=== PATIENT | female | born 1960 | race Caucasian/White ===

== ENCOUNTER 2020-05-06 13:00 | Outpatient (REF) | payer MEDICAID, SELFPAY ==
--- NOTE | ~2020-05-06 | MR_ITS ---
EXAMINATION: MR LUMBAR SPINE WITHOUT CONTRAST CLINICAL INFORMATION: Low back and left leg pain. COMPARISON: X-ray dated 10/09/2018. TECHNIQUE: MRI of the lumbar spine was obtained using routine sequences without contrast. FINDINGS: VERTEBRAL BODIES AND PARASPINAL STRUCTURES: There is a mild leftward lumbar spinal curvature. Mixed chronic and mild edematous endplate changes are visible from the L3-S1 levels. There is [id number] disc space narrowing lateralized more so to the right side at the L3-L4 level and to the left side at the L5-S1 level as result of spondylosis in the degenerative curvature. The marrow signal is heterogeneous with regions of fatty change. No compression fractures are identified. Mild posterior subluxation evident at L3-L4 and L1-L2. Grade 1 anterolisthesis evident at the L4-L5 level without obvious L4 pars defects. The paraspinal soft tissues are unremarkable. Imaged bony pelvis appears normal. CONUS MEDULLARIS AND CAUDA EQUINA: Normal, terminating at the level of L1. No lower cord signal abnormality is seen. The cauda equina nerve roots appear normal. SPINAL LEVELS: L1-L2: Tmel-kg-[id number] loss of disc height and retrosubluxation with an anterior disc bulge. Patent foramina. No significant central canal stenosis. L2-L3: Very mild disc bulge and mild facet arthropathy without central canal stenosis or foraminal narrowing. Anterior endplate spurring. L3-L4: Moderate right lateralized disc space narrowing with endplate spurring and a right lateral disc bulge. No central canal stenosis. Mild facet arthropathy. Bulging disc and osseous spurring result in moderate right foraminal encroachment, contacting and impressing upon the exiting right L3 nerve root. Mild retrosubluxation. L4-L5: Anterolisthesis and unroofing of the disc with severe facet arthropathy and a broad-based posterior disc bulge in addition to endplate spurring which results in severe central canal stenosis and thecal sac compression. Mass effect upon the L5 nerve roots in the subarticular zones bilaterally. Additional unroofed bulging disc and osseous spurring result in [id number] foraminal encroachment and distortion of the exiting right L4 nerve root. L5-S1: Disc bulge lateralized to the left side with endplate spurring facet arthropathy resulting in severe left foraminal encroachment and compression of the exiting left L5 nerve root. Bulging disc mildly impresses upon the ventral thecal sac and left S1 nerve root without central canal stenosis. MR/MR lumbar spine wo con IMPRESSION: Leftward lumbar spinal curvature and multilevel spondylosis with subluxations as described. Moderate disc space narrowing lateralized to the right side at L3-L4 with bulging disc and osseous spurring result in moderate right foraminal encroachment and distortion of the exiting right L3 nerve root. Anterior subluxation and severe facet arthropathy with a disc bulge and osseous spurring at the L4-L5 level resulting in severe central canal stenosis. Mass effect upon both L5 nerve roots and the exiting right L4 nerve root due to severe right foraminal encroachment. Left lateralized disc bulge and endplate spurring at L5-S1 with severe left foraminal encroachment and compression of the exiting left L5 nerve root.
== END 2020-05-06 13:01 | disposition home or self-care (01) ==
LOC: HO.MRI 13:00
PROVIDERS: Visit Provider Family Medicine
DX: M54.42 Lumbago with sciatica, left side (principal)
CPT/HCPCS: 72148

== ENCOUNTER → 2021-02-08 08:59 | Outpatient (BNVA) | payer MEDICAID, SELFPAY | PROVIDERS: PCP Family Medicine; Referring Provider Family Medicine; Visit Provider Internal Medicine | DX: I25.10 Atherosclerotic heart disease of native coronary artery without angina pectoris (principal); I10 Essential (primary) hypertension; E78.5 Hyperlipidemia, unspecified; E11.8 Type 2 diabetes mellitus with unspecified complications | CPT/HCPCS: 93005; 99202; 99212 ==

== ENCOUNTER 2021-04-11 10:18 | Outpatient (REF) | payer MEDICAID, SELFPAY ==
--- NOTE | ~2021-04-11 | MM_ITS ---
EXAMINATION: MM SCREENING DIGITAL BREAST TOMOSYNTHESIS, BILATERAL CLINICAL INFORMATION: Screening. Asymptomatic. The lifetime risk of breast cancer based on the Tyrer-Cuzick Model is 6%. COMPARISON: Mammography: 03/27/2018, 02/27/2017, 11/26/2015 TECHNIQUE: Digital breast tomosynthesis is performed in both the craniocaudal and mediolateral oblique views along with computer-aided detection (CAD). Synthesized 2D images are generated from the tomosynthesis. Additional left MLO view is provided. FINDINGS: There are scattered areas of fibroglandular density (ACR BI-RADS breast composition Category b). There are no significant masses, abnormal calcifications, or other abnormalities. Breast tissue composition borders on predominantly fatty. No significant changes. MM/MM tomosynthesis screening BI IMPRESSION: No mammographic evidence of malignancy. ASSESSMENT: BI-RADS 1: Negative RECOMMENDATION: Routine annual mammography screening. This patient's information was entered into a reminder system with a target due date for their next mammogram.
== END 2021-04-11 10:19 | disposition home or self-care (01) ==
LOC: HO.MAMMO 10:18
PROVIDERS: PCP Family Medicine; Visit Provider Family Medicine
DX: Z12.31 Encounter for screening mammogram for malignant neoplasm of breast (principal)
CPT/HCPCS: 77063; 77067

== ENCOUNTER 2022-04-17 10:27 | Outpatient (REF) | payer MEDICAID, SELFPAY ==
--- NOTE | ~2022-04-17 | MM_ITS ---
EXAMINATION: MM SCREENING DIGITAL BREAST TOMOSYNTHESIS, BILATERAL CLINICAL INFORMATION: Screening. Asymptomatic. The lifetime risk of breast cancer based on the Tyrer-Cuzick Model is 6%. COMPARISON: Mammography: 04/11/2021, 03/27/2018, 02/27/2017 TECHNIQUE: Digital breast tomosynthesis is performed in both the craniocaudal and mediolateral oblique views along with computer-aided detection (CAD). Synthesized 2D images are generated from the tomosynthesis. Additional bilateral MLO views are provided. FINDINGS: There are scattered areas of fibroglandular density (ACR BI-RADS breast composition Category b). There are no significant masses, abnormal calcifications, or other abnormalities. No architectural abnormality or developing density or significant change from prior studies. Breast tissue composition borders on predominantly fatty. MM/MM tomosynthesis screening BI IMPRESSION: No mammographic evidence of malignancy. ASSESSMENT: BI-RADS 1: Negative RECOMMENDATION: Routine annual mammography screening. This patient's information was entered into a reminder system with a target due date for their next mammogram.
== END 2022-04-17 10:28 | disposition home or self-care (01) ==
LOC: HO.MAMMO 10:27
PROVIDERS: PCP Family Medicine; Visit Provider Family Medicine
DX: Z12.31 Encounter for screening mammogram for malignant neoplasm of breast (principal)
CPT/HCPCS: 77063; 77067

== ENCOUNTER → 2022-05-02 09:57 | Outpatient (REF) | payer MEDICAID, SELFPAY ==
--- NOTE | 2022-05-02 10:03 | ECG_ITS ---
Test Reason : CK QT PROLONGATION -METHADONE Blood Pressure : / mmHG Vent. 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
== END ==
LOC: HO.CARD 09:57
PROVIDERS: PCP Family Medicine; Visit Provider Family Medicine
DX: Z79.899 Other long term (current) drug therapy (principal)
CPT/HCPCS: 93005

== ENCOUNTER 2022-05-19 14:15 | Emergency (ER) | payer MEDICAID, SELFPAY ==
--- NOTE | ~2022-05-19 | XR_ITS ---
EXAMINATION: XR FEMUR, RIGHT CLINICAL INFORMATION: Fall COMPARISON: 10/11/2016 TECHNIQUE: AP and lateral views of the right femur were obtained. FINDINGS: No fracture or dislocation. No cortical disruption. Alignment maintained at the hip and knee. Mild degenerative change of the hip with subchondral sclerosis. Small marginal osteophytes of the medial and lateral compartments of the knee. No joint effusion at the knee. The soft tissues are unremarkable. XR/XR femur RT 2V IMPRESSION: No fracture or malalignment. Mild degenerative changes of the hip and knee.
--- NOTE | ~2022-05-19 | XR_ITS ---
EXAMINATION: XR SHOULDER, RIGHT CLINICAL INFORMATION: Fall with pain COMPARISON: None TECHNIQUE: Three views of the right shoulder. FINDINGS: No fracture or dislocation. The glenohumeral joint is well aligned with narrowing of the joint space. Prominent inferior osteophyte. The acromioclavicular joint is intact with mild hypertrophic degenerative change. The visualized lung is clear. The visualized ribs are intact. XR/XR shoulder RT min 2V IMPRESSION: No fracture or malalignment. Moderate degenerative changes of the right shoulder.
--- NOTE | ~2022-05-19 | XR_ITS ---
EXAMINATION: XR PELVIS CLINICAL INFORMATION: Pelvic pain status post fall. COMPARISON: Left hip radiographs dated 10/11/2016. TECHNIQUE: AP view of the pelvis. FINDINGS: Mild bilateral hip and pubic symphysis degenerative joint changes are seen. There is no acute fracture or dislocation. The bony pelvis is intact. The soft tissues are unremarkable. XR/XR pelvis 1-2V IMPRESSION: Mild bilateral hip and pubic symphysis degenerative joint changes. No acute fracture.
[2022-05-19 14:29] VITALS: BP 147/88; PULSE 73; RESP 18; TEMP 36.1; O2SAT 97; BMI 26.2
--- NOTE | 2022-05-19 14:29 | ED.FALL ---
HPI - Fall General Chief Complaint: Fall <Melisa Rayo CNP - Last Filed: 05/19/22 14:33> Stated Complaint: Fall/R leg pain <Melisa Rayo CNP - Last Filed: 05/19/22 14:33> Time Seen by Provider: 05/19/22 14:54 <Melisa Rayo CNP - Last Filed: 05/19/22 14:33> Source: patient <GILDA Helton - Last Filed: 05/19/22 19:51> Mode of arrival: ambulatory <GILDA Helton Last Filed: 05/19/22 19:51> Limitations: no limitations <GILDA Helton Last Filed: 05/19/22 19:51> History of Present Illness HPI Narrative: Patient is a 62 year old assigned female at with a history of DM, HTN, and chronic dizziness presenting to the emergency department today with right sided shoulder, leg, and hip pain. Patient states that on 05/17 she tripped and fell, landing on her right side. Patient denies hitting her head with the incident. Patient denies any loss of conciousness from the incident. Patient denies any dizziness, lightheadedness, abdominal pain, nausea, vomiting, fever, chills, blurry vision, double vision, loss of vision, chest pain, difficulty breathing, shortness of breath, back pain, night sweats, pain with urination, increased urinary frequency, increased urinary urgency, blood in her urine or stool, syncope or a near syncopal episode, bowel incontinence, bladder incontinence, bowel retention, bladder retention, or any other complaints at this time. <GILDA Helton - Last Filed: 05/19/22 19:51> MD complaint: fall <GILDA Helton Last Filed: 05/19/22 19:51> Onset (ago): day(s) (2) <GILDA Helton Last Filed: 05/19/22 19:51> Fall from: standing <GILDA Helton Last Filed: 05/19/22 19:51> Place fall occurred: home <GILDA Helton Last Filed: 05/19/22 19:51> Loss of consciousness: none <GILDA Helton Last Filed: 05/19/22 19:51> Prolonged down time: no <GILDA Helton - Last Filed: 05/19/22 19:51> Symptoms prior to fall: none <GILDA Helton - Last Filed: 05/19/22 19:51> Context: tripped/slipped <GILDA Helton - Last Filed: 05/19/22 19:51> Severity scale (1-10): 3 <GILDA Helton - Last Filed: 05/19/22 19:51> Quality: dull <GILDA Helton - Last Filed: 05/19/22 19:51> Associated symptoms (after fall): denies <GILDA Helton - Last Filed: 05/19/22 19:51> Related Data Home Medications: Home Medications Medication Instructions Recorded Confirmed albuterol sulfate 90 mcg/actuation 2 puff PO Q4H PRN 02/08/21 02/08/21 aerosol inhaler (ProAir HFA) aspirin 81 mg tablet,delayed 81 mg PO BEDTIME 02/08/21 02/08/21 release buprenorphine 8 mg-naloxone 2 mg 10 mg sublingual BID 02/08/21 02/08/21 sublingual film (Suboxone) buspirone 7.5 mg tablet 7.5 mg PO BID 02/08/21 02/08/21 fluticasone propionate 110 1 puff PO BID 02/08/21 02/08/21 mcg/actuation HFA aerosol inhaler (Flovent HFA) gabapentin 300 mg capsule 300 mg PO TID 02/08/21 02/08/21 glipizide 5 mg tablet 5 mg PO 02/08/21 02/08/21 hydrochlorothiazide 25 mg tablet 25 mg PO QAM 02/08/21 02/08/21 hydroxyzine HCl 25 mg tablet 25 mg PO Q6H PRN anxiety 02/08/21 02/08/21 lisinopril 40 mg tablet 40 mg PO BEDTIME 02/08/21 02/08/21 melatonin 5 mg tablet 5 - 10 mg PO BEDTIME PRN insomnia 02/08/21 02/08/21 multivitamin (One Daily 1 tab PO BEDTIME 02/08/21 02/08/21 Multivitamin tablet) omeprazole 20 mg capsule,delayed 20 mg PO QAM 02/08/21 02/08/21 release rosuvastatin 5 mg tablet 5 mg PO BEDTIME 02/08/21 02/08/21 zolpidem 10 mg tablet 10 mg PO BEDTIME PRN insomnia 02/08/21 02/08/21 <Melisa Rayo CNP - Last Filed: 05/19/22 14:33> Allergies/Adverse Reactions: Allergies Allergy/AdvReac Type Severity Reaction Status Date / Time aspirin Allergy Unknown Verified 04/01/18 00:00 No Known Allergies Allergy Unverified 12/04/19 15:29 <Melisa Rayo [facility] - Last Filed: 05/19/22 14:33> Review of Systems Constitutional: Constitutional: Reports no additional constitutional complaints, Denies chills, Denies fever(s) and Denies night sweats <GILDA Helton Last Filed: 05/19/22 19:51> Eyes: Eyes: Reports no additional eye complaints, Denies blurry vision, Denies change in vision, Denies diplopia, Denies eye discharge, Denies loss of vision and Denies eye pain <GILDA Helton - Last Filed: 05/19/22 19:51> ENT: Denies dizziness <GILDA Helton - Last Filed: 05/19/22 19:51> Cardiovascular: Cardiovascular: Reports no additional cardiovascular complaints, Denies chest pain, Denies lightheadedness, Denies Loss of Consciousness and Denies dyspnea <GILDA Helton Last Filed: 05/19/22 19:51> Respiratory: Respiratory: Reports no additional respiratory complaints and Denies dyspnea <GILDA Helton Last Filed: 05/19/22 19:51> Gastrointestinal: Gastrointestinal: Reports no additional gastrointestinal complaints, Denies abdominal pain, Denies melena, Denies hematochezia, Denies change in bowel habits and Denies change in stool character <GILDA Helton Last Filed: 05/19/22 19:51> Genitourinary: Genitourinary: Denies hematuria, Denies urinary frequency, Denies dysuria, Denies urinary incontinence, Denies urinary hesitancy and Denies urinary urgency <GILDA Helton Last Filed: 05/19/22 19:51> Musculoskeletal: Musculoskeletal: Reports no additional musculoskeletal complaints, Denies numbness and Denies tingling <GILDA Helton - Last Filed: 05/19/22 19:51> Comments: right shoulder pain, right hip pain, right upper leg pain <GILDA Helton - Last Filed: 05/19/22 19:51> Neurologic: Denies dizziness, Denies loss of vision, Denies numbness and Denies tingling <GILDA Helton - Last Filed: 05/19/22 19:51> Psychiatric: Psychiatric: Reports no additional psychiatric complaints <GILDA Helton - Last Filed: 05/19/22 19:51> Endocrine: Endocrine: Reports no additional endocrine complaints <GILDA Helton - Last Filed: 05/19/22 19:51> Hematologic/Lymphatic: Hematologic/Lymphatic: Reports no additional hematologic/lymphatic complaints <GILDA Helton - Last Filed: 05/19/22 19:51> Allergic/Immunologic: Allergic/Immunologic: Reports no additional allergic/immunologic complaints <GILDA Helton - Last Filed: 05/19/22 19:51> PMF Past Medical History Attestation statement: The following information was validated with the patient. <GILDA Helton - Last Filed: 05/19/22 19:51> Source: old records reviewed and nursing notes reviewed <GILDA Helton - Last Filed: 05/19/22 19:51> Medical History: Medical History Atherosclerotic cardiovascular disease Essential hypertension Other and unspecified hyperlipidemia Type 2 diabetes mellitus with unspecified complications <Melisa Rayo CNP - Last Filed: 05/19/22 14:33> Surgical History: Surgical History Hx of cardiac catheterization <Melisa Rayo CNP - Last Filed: 05/19/22 14:33> Family History Family History: Family History Father Diabetes Mother No problems noted. <Melisa Rayo CNP - Last Filed: 05/19/22 14:33> Social History Social History: Social History Patient Tobacco Use Status: Current someday Tobacco user Smoked in Last 30 Days: No Use of substances other than those prescribed or required for medical reasons: No Any prior treatment program specific to substance use: No Advance Directives: No Advance Directives Information Provided: Yes Patient : No <Melisa Rayo CNP - Last Filed: 05/19/22 14:33> Physical Exam Vital Signs: Vital Signs: Last Vital Signs Temp 98.9 F 05/19/22 16:36 Pulse 66 05/19/22 16:36 Resp 18 05/19/22 16:36 BP 133/86 05/19/22 16:36 Pulse Ox 96 05/19/22 16:36 O2 Del Method 05/19/22 16:36 BMI result Body Mass Index 26.2 <Melisa Rayo CNP - Last Filed: 05/19/22 14:33> Vital Signs: Last Vital Signs Temp 98.9 F 05/19/22 16:36 Pulse 66 05/19/22 16:36 Resp 18 05/19/22 16:36 BP 133/86 05/19/22 16:36 Pulse Ox 96 05/19/22 16:36 O2 Del Method 05/19/22 16:36 BMI result Body Mass Index 26.2 <GILDA Helton - Last Filed: 05/19/22 19:51> Const: General: cooperative, no acute distress, alert and awake <GILDA Helton - Last Filed: 05/19/22 19:51> Nutritional Appearance: well nourished <GILDA Helton - Last Filed: 05/19/22 19:51> Orientation/consciousness: patient oriented x3 <GILDA Helton - Last Filed: 05/19/22 19:51> Limitations: no limitations <GILDA Helton - Last Filed: 05/19/22 19:51> HEENT: Head: Yes normal to inspection and Yes atraumatic <GILDA Helton Last Filed: 05/19/22 19:51> Ears: hearing grossly normal bilaterally and external ears normal <GILDA Helton - Last Filed: 05/19/22 19:51> General nose exam: Normal external nose present, no nasal discharge noted and no epistaxis <Macrina Henriquezpankaj MD - Last Filed: 05/19/22 19:51> Face and sinus: Yes normal facial exam, No abrasion and No laceration <Macrina Henriquezpankaj MD - Last Filed: 05/19/22 19:51> Mouth: Normal oral and palatal mucosa present, no drooling and no muffled voice <Macrinapaulina Henriquezpankaj MD - Last Filed: 05/19/22 19:51> Eyes: General: appearance normal, both eyes and all related structures <Macrinapaulina Henriquezpankaj MD - Last Filed: 05/19/22 19:51> Periorbital: periorbital findings normal <Macrina Henriquezpankaj MD - Last Filed: 05/19/22 19:51> Eyelids: Yes eyelids normal <Macrinapaulina Henriquezpankaj MD - Last Filed: 05/19/22 19:51> Conjunctivae: conjunctivae normal <Macrinapaulina Henriquezpankaj MD - Last Filed: 05/19/22 19:51> Pupils: Equal, round and reactive pupils present <Macrina Henriquezpankaj MD - Last Filed: 05/19/22 19:51> EOM: EOMs intact bilaterally <Macrinapaulina Henriquezpankaj MD - Last Filed: 05/19/22 19:51> Neck: Neck: Yes normal visual inspection, Yes full ROM and Yes no lymphadenopathy <Macrinapaulina Henriquezpankaj MD - Last Filed: 05/19/22 19:51> Chest: Chest palpation & inspection: normal inspection of the chest <Macrina Smith MD - Last Filed: 05/19/22 19:51> Resp: Effort & Inspection: normal respiratory effort and able to speak in complete sentences <Macrina Smith MD - Last Filed: 05/19/22 19:51> Auscultation: clear to auscultation bilaterally <Macrina Sarah MD - Last Filed: 05/19/22 19:51> Cardio: Rate: regular rate <Macrina Smith MD - Last Filed: 05/19/22 19:51> Rhythm: regular rhythm <Macrina Smith MD - Last Filed: 05/19/22 19:51> GI: Inspection: Yes normal to inspection <Macrina SmithGILDA - Last Filed: 05/19/22 19:51> Palpation (GI): Soft to palpation, not firm, nontender, no guarding and not rigid <Macrina SmithGILDA - Last Filed: 05/19/22 19:51> Neuro: General: patient oriented x3 and moves all extremities <Macrina SmithGILDA - Last Filed: 05/19/22 19:51> Cranial nerves: Yes Equal, round and reactive pupils present <Macrina SmithGILDA - Last Filed: 05/19/22 19:51> Cognition (Neuro): normal cognition <Macrina Smith MD - Last Filed: 05/19/22 19:51> Motor exam (neuro): 5/5 motor strength present throughout <Macrina SmithGILDA - Last Filed: 05/19/22 19:51> Sensory Exam: Normal double simultaneous stimulation for sensation <Macrina HenriquezGILDA lira - Last Filed: 05/19/22 19:51> Coordination: [id number] test normal <Macrina Henriquezpankaj MD - Last Filed: 05/19/22 19:51> Extrem: General: Yes normal to inspection, Yes full ROM and Yes capillary refill normal <Macrina HenriquezGILDA lira - Last Filed: 05/19/22 19:51> Psych: Appearance: grossly normal <Macrina SmithGILDA - Last Filed: 05/19/22 19:51> Mental Status: mental status grossly normal <Macrina HenriquezGILDA lira - Last Filed: 05/19/22 19:51> Affect: normal affect <Macrina HenriquezGILDA lira - Last Filed: 05/19/22 19:51> Attitude: cooperative <Macrina HenriquezGILDA lira - Last Filed: 05/19/22 19:51> Thought process: Normal thought process present <Macrina GILDA Smith - Last Filed: 05/19/22 19:51> Thought content: Normal thought content present <Macrina HenriquezGILDA lira - Last Filed: 05/19/22 19:51> Insight: Good insight present (Psych) <Macrinapaulina HenriquezGILDA lira - Last Filed: 05/19/22 19:51> Course Course Course Narrative: This is an RME: Additional HPI, ROS, PE not included below will be deferred to primary provider. Patient is a 62-year-old female who presents to emergency department evaluation after a mechanical slip and fall 2 days ago. Denies any headstrike or LOC. Complaining of pain to right buttock radiating down the entire leg and pain to the right arm. Has been taking tylenol without any improvement. She is ambulatory with antalgic gait. <Melisa Rayo CNP - Last Filed: 05/19/22 14:33> Medications Administered Discontinued Medications Generic Name Dose Route Start Last Admin Trade Name Freq PRN Reason Stop Dose Admin Ketorolac Tromethamine 15 mg 05/19/22 16:35 05/19/22 16:40 Ketorolac Tromethamine 15 Mg/Ml Vial IM 05/19/22 16:36 15 mg ONCE ONE Administration <Melisa Forbesthalia Rayo CNP - Last Filed: 05/19/22 14:33> Medications Administered Discontinued Medications Generic Name Dose Route Start Last Admin Trade Name Freq PRN Reason Stop Dose Admin Ketorolac Tromethamine 15 mg 05/19/22 16:35 05/19/22 16:40 Ketorolac Tromethamine 15 Mg/Ml Vial IM 05/19/22 16:36 15 mg ONCE ONE Administration <GILDA Helton - Last Filed: 05/19/22 19:51> Medical Decision Making Medical Decision Making MDM Narrative: Patient is a 62 year old assigned female at with a history of chronic dizziness, DM, and HTN presenting to the emergency department today with right shoulder, right hip, and right upper leg pain. Patient's physical exam was unremarkable. Patient's blood work was unremarkable. Patient's pelvic, right femur, and right shoulder x-rays all showed no acute process. I explained my physical exam findings as well as all test results to the patient and the patient's daughter. I answered all questions asked by the patient and the patient's daughter. I stressed the importance of the patient taking her medication as prescribed. I stressed the importance of the patient following up with her primary care provider. I stressed the importance of the patient returning to the emergency department immediately if her symptoms were to worsen or if she were to develop any dizziness, shortness of breath, difficulty breathing, chest pain, blurry vision, loss of vision, nausea, vomiting, abdominal pain, fever, chills, back pain, or any other complaints. Patient and the patient's daughter verbalized agreement and understanding with this treatment plan and discharge. <GILDA Helton - Last Filed: 05/19/22 19:51> Differential Diagnosis Differential Diagnoses: The differential diagnosis associated with the presentation includes <GILDA Helton - Last Filed: 05/19/22 19:51> trip and fall, right hip pain, right shoulder pain, right upper leg pain <GILDA Helton - Last Filed: 05/19/22 19:51> Lab Data MDM Lab Attestation statement: I reviewed the patient's lab results. <GILDA Helton - Last Filed: 05/19/22 19:51> Result Diagrams: 05/19/22 15:40 05/19/22 15:40 <Melisa Rayo CNP - Last Filed: 05/19/22 14:33> Labs: Lab Results 05/19/22 05/19/22 05/19/22 Range/Units 15:40 15:40 15:40 WBC 9.7 (4.8-10.8) X10*3/uL RBC 4.47 (4.20-5.50) X10*6/uL Hgb 13.7 (12.0-16.0) g/dl Hct 39.5 (37.0-47.0) % MCV 88.4 (80.0-98.0) fL MCH 30.6 (27.0-33.0) pg MCHC 34.7 (31.0-35.0) g/dl RDW 13.2 (11.0-16.0) % Plt Count 189 (160-400) X10*3/uL MPV 10.8 (9.4-12.3) fL Immature Gran % (Auto) 0.2 (0.0-0.4) % Neut % (Auto) 54.7 (45-73) % Lymph % (Auto) 35.4 (20-40) % [place] % (Auto) 6.4 (2-11) % Eos % (Auto) 2.9 (0-4) % Baso % (Auto) 0.4 (0-2) % Lymph # (Auto) 3.5 (1.2-4.9) X10*3/uL [place] # (Auto) 0.6 (0.1-1.2) X10*3/uL Eos # (Auto) 0.3 (0.0-0.4) X10*3/uL Baso # (Auto) 0.0 (0.0-0.2) X10*3/uL Abs Immat Gran (auto) 0.02 (0.00-0.03) X10*3/uL Absolute Neuts (auto) 5.3 (2.0-8.3) x10*3/uL Absolute Nucleated RBC 0.000 (0.0-0.012) X10*3/uL Nucleated RBC % (auto) 0.0 (0.0-0.2) /100WBC PT 11.1 (10.0-13.1) SEC INR 1.0 (0.9-1.1) APTT 26.9 (26.0-36.4) SEC Sodium 136 (135-145) mmol/L Potassium 4.2 (3.3-5.1) mmol/L Chloride 97 (96-108) mmol/L Carbon Dioxide 31 H (22-29) mmol/L Anion Gap 12 (12-20) BUN 16 (9-16) mg/dL Creatinine 0.86 (0.5-1.4) mg/dL Estim Creat Clear Calc 60.7 Estimated GFR > 60 Random Glucose 394 H* (60-115) mg/dL Calcium 9.3 (8.4-10.2) mg/dL Total Bilirubin 0.3 (0.0-1.0) mg/dL AST 27 (5-31) U/L ALT 26 (0-31) U/L Alkaline Phosphatase 124 H (39-117) U/L Total Protein 8.0 (6.5-8.0) g/dL Albumin 3.7 (3.5-5.0) g/dL Acetaminophen < 17 (<30) mcg/mL <Melisa Rayo CNP - Last Filed: 05/19/22 14:33> Lab Results 05/19/22 05/19/22 05/19/22 Range/Units 15:40 15:40 15:40 WBC 9.7 (4.8-10.8) X10*3/uL RBC 4.47 (4.20-5.50) X10*6/uL Hgb 13.7 (12.0-16.0) g/dl Hct 39.5 (37.0-47.0) % MCV 88.4 (80.0-98.0) fL MCH 30.6 (27.0-33.0) pg MCHC 34.7 (31.0-35.0) g/dl RDW 13.2 (11.0-16.0) % Plt Count 189 (160-400) X10*3/uL MPV 10.8 (9.4-12.3) fL Immature Gran % (Auto) 0.2 (0.0-0.4) % Neut % (Auto) 54.7 (45-73) % Lymph % (Auto) 35.4 (20-40) % [place] % (Auto) 6.4 (2-11) % Eos % (Auto) 2.9 (0-4) % Baso % (Auto) 0.4 (0-2) % Lymph # (Auto) 3.5 (1.2-4.9) X10*3/uL [place] # (Auto) 0.6 (0.1-1.2) X10*3/uL Eos # (Auto) 0.3 (0.0-0.4) X10*3/uL Baso # (Auto) 0.0 (0.0-0.2) X10*3/uL Abs Immat Gran (auto) 0.02 (0.00-0.03) X10*3/uL Absolute Neuts (auto) 5.3 (2.0-8.3) x10*3/uL Absolute Nucleated RBC 0.000 (0.0-0.012) X10*3/uL Nucleated RBC % (auto) 0.0 (0.0-0.2) /100WBC PT 11.1 (10.0-13.1) SEC INR 1.0 (0.9-1.1) APTT 26.9 (26.0-36.4) SEC Sodium 136 (135-145) mmol/L Potassium 4.2 (3.3-5.1) mmol/L Chloride 97 (96-108) mmol/L Carbon Dioxide 31 H (22-29) mmol/L Anion Gap 12 (12-20) BUN 16 (9-16) mg/dL Creatinine 0.86 (0.5-1.4) mg/dL Estim Creat Clear Calc 60.7 Estimated GFR > 60 Random Glucose 394 H* (60-115) mg/dL Calcium 9.3 (8.4-10.2) mg/dL Total Bilirubin 0.3 (0.0-1.0) mg/dL AST 27 (5-31) U/L ALT 26 (0-31) U/L Alkaline Phosphatase 124 H (39-117) U/L Total Protein 8.0 (6.5-8.0) g/dL Albumin 3.7 (3.5-5.0) g/dL Acetaminophen < 17 (<30) mcg/mL <GILDA Helton - Last Filed: 05/19/22 19:51> Independent Interpretation I performed an independent interpretation of an: Plain X-Ray <GILDA Helton - Last Filed: 05/19/22 19:51> Interpretation: My interpretation is in agreement with the radiologist's impression of these imaging studies. EXAMINATION: XR PELVIS CLINICAL INFORMATION: Pelvic pain status post fall.? COMPARISON: Left hip radiographs dated 10/11/2016.? TECHNIQUE: AP view of the pelvis. FINDINGS: Mild bilateral hip and pubic symphysis degenerative joint changes are seen. There is no acute fracture or dislocation. The bony pelvis is intact. The soft tissues are unremarkable.? XR/XR pelvis 1-2V IMPRESSION: Mild bilateral hip and pubic symphysis degenerative joint changes. No acute fracture. Dictated By: Cruzito Arriola MD Signed By: Electronically signed by Cruzito Arriola MD 05/19/22 1553 EXAMINATION: XR FEMUR, RIGHT CLINICAL INFORMATION: Fall? COMPARISON: 10/11/2016? TECHNIQUE: AP and lateral views of the right femur were obtained. FINDINGS: No fracture or dislocation. No cortical disruption. Alignment maintained at the hip and knee. Mild degenerative change of the hip with subchondral sclerosis. Small marginal osteophytes of the medial and lateral compartments of the knee. No joint effusion at the knee. The soft tissues are unremarkable.? XR/XR femur RT 2V IMPRESSION: No fracture or malalignment. Mild degenerative changes of the hip and knee. Dictated By: Woody Miranda MD Signed By: Electronically signed by Woody Miranda MD 05/19/22 1627 EXAMINATION: XR SHOULDER, RIGHT CLINICAL INFORMATION: Fall with pain? COMPARISON: None? TECHNIQUE: Three views of the right shoulder. FINDINGS: No fracture or dislocation. The glenohumeral joint is well aligned with narrowing of the joint space. Prominent inferior osteophyte. The acromioclavicular joint is intact with mild hypertrophic degenerative change. The visualized lung is clear. The visualized ribs are intact.? XR/XR shoulder RT min 2V IMPRESSION: No fracture or malalignment. Moderate degenerative changes of the right shoulder. Dictated By: Woody Miranda MD Signed By: Electronically signed by Woody Miranda MD 05/19/22 1628 <GILDA Helton - Last Filed: 05/19/22 19:51> Independent Historian Clinical information obtained from an independent historian. History obtained from or confirmed by: Other (patient's daughter) <GILDA Helton - Last Filed: 05/19/22 19:51> Discharge Plan Discharge Clinical Impression: Fall <Melisa Rayo CNP - Last Filed: 05/19/22 14:33> Patient Disposition: Home, Self-Care <Melisa Rayo CNP - Last Filed: 05/19/22 14:33> Instructions: Fall Prevention (ED) <Melisa Rayo CNP - Last Filed: 05/19/22 14:33> Additional Instructions: Follow up with your primary care provider. Return to the emergency department immediately if your symptoms worsen or if you develop any dizziness, shortness of breath, difficulty breathing, chest pain, blurry vision, loss of vision, nausea, vomiting, abdominal pain, fever, chills, back pain, or any other complaints. Satnam un seguimiento con rosenberg proveedor de atenci?n primaria. Regrese al departamento de emergencias de inmediato si abhilash s?ntomas empeoran o si presenta mareos, falta de aire, dificultad para respirar, dolor de pecho, visi?n borrosa, p?rdida de la visi?n, n?useas, v?mitos, dolor abdominal, fiebre, escalofr?os, dolor de espalda o cualquier otras quejas. <Melisa Rayo CNP - Last Filed: 05/19/22 14:33> Prescriptions: No Action buprenorphine-naloxone [Suboxone] 8-2 mg film 10 mg sublingual BID albuterol sulfate [ProAir HFA] 90 mcg/actuation HFA aerosol inhaler 2 puff PO Q4H PRN hydroxyzine HCl 25 mg tablet 25 mg PO Q6H PRN (Reason: anxiety) zolpidem 10 mg tablet 10 mg PO BEDTIME PRN (Reason: insomnia) melatonin 5 mg tablet 5 - 10 mg PO BEDTIME PRN (Reason: insomnia) rosuvastatin 5 mg tablet 5 mg PO BEDTIME glipizide 5 mg tablet 5 mg PO lisinopril 40 mg tablet 40 mg PO BEDTIME hydrochlorothiazide 25 mg tablet 25 mg PO QAM omeprazole 20 mg capsule,delayed release(DR/EC) 20 mg PO QAM buspirone 7.5 mg tablet 7.5 mg PO BID gabapentin 300 mg capsule 300 mg PO TID aspirin 81 mg tablet,delayed release (DR/EC) 81 mg PO BEDTIME multivitamin [One Daily Multivitamin] Tablet 1 tab PO BEDTIME Flovent HFA 110 mcg/actuation HFA aerosol inhaler 1 puff PO BID <Melisa Rayo CNP - Last Filed: 05/19/22 14:33> Referrals: Zuleima Urbina DO [Primary Care Provider] - <Melisa Rayo CNP - Last Filed: 05/19/22 14:33> Interventions: ED Discharge Assessment Last Done: 05/19/22 16:44 <Melisa Rayo CNP - Last Filed: 05/19/22 14:33> Discharge Date/Time: 05/19/22 16:44 <Melisa Rayo CNP - Last Filed: 05/19/22 14:33> Print Language: Nepali <Melisa Rayo CNP - Last Filed: 05/19/22 14:33>
[2022-05-19 15:44] LABS: MANUAL DIFF FLAG NO
[2022-05-19 15:47] LABS: Basophils Percent Auto 0.4 % (0-2); Eosinophils Absolute Auto 0.3 X10*3/uL (0.0-0.4); Eosinophils Percent Auto 2.9 % (0-4); Hematocrit 39.5 % (37.0-47.0); Hemoglobin 13.7 g/dl (12.0-16.0); Imm Gran Abs Auto 0.02 X10*3/uL (0.00-0.03); Imm Gran Pct Auto 0.2 % (0.0-0.4); Lymphocytes Absolute Auto 3.5 X10*3/uL (1.2-4.9); Lymphocytes Percent Auto 35.4 % (20-40); Mean Corpuscular HGB Conc 34.7 g/dl (31.0-35.0); Mean Corpuscular Hemoglobin 30.6 pg (27.0-33.0); Mean Corpuscular Volume 88.4 fL (80.0-98.0); Mean Platelet Volume 10.8 fL (9.4-12.3); Monocytes Absolute Auto 0.6 X10*3/uL (0.1-1.2); Monocytes Percent Auto 6.4 % (2-11); Neutrophils Absolute Auto 5.3 x10*3/uL (2.0-8.3); Neutrophils Percent Auto 54.7 % (45-73); Platelet Count 189 X10*3/uL (160-400); Red Blood Count 4.47 X10*6/uL (4.20-5.50); Red Cell Distribution Width 13.2 % (11.0-16.0); White Blood Count 9.7 X10*3/uL (4.8-10.8)
[2022-05-19 15:58] LABS: Prothrombin Time 11.1 SEC (10.0-13.1)
[2022-05-19 16:00] LABS: Partial Thromboplastin Time 26.9 SEC (26.0-36.4)
[2022-05-19 16:07] LABS: Acetaminophen LAB < 17 mcg/mL (<30); Alanine Aminotransferase 26 U/L (0-31); Albumin Level 3.7 g/dL (3.5-5.0); Alkaline Phosphatase 124 U/L (39-117); Anion Gap 12 (12-20); Aspartate Amino Transferase 27 U/L (5-31); Bilirubin Total 0.3 mg/dL (0.0-1.0); Blood Urea Nitrogen 16 mg/dL (9-16); Calcium 9.3 mg/dL (8.4-10.2); Carbon Dioxide 31 mmol/L (22-29); Chloride 97 mmol/L (96-108); Creatinine Clr Calc Pharmacy 60.7; Estimated Glomerular Filt Rate > 60; Glucose Random 394 mg/dL (60-115); Potassium 4.2 mmol/L (3.3-5.1); Sodium 136 mmol/L (135-145)
[2022-05-19 16:36] VITALS: BP 133/86; PULSE 66; RESP 18; TEMP 37.2; O2SAT 96
[2022-05-19] MEDS: Ketorolac Tromethamine 15 MG/ML VIAL IM (16:40)
== END 2022-05-19 16:44 | disposition home or self-care (01) ==
PROVIDERS: Physician Assistant Medical; Emergency Provider Emergency Medicine Emergency Medical Services; PCP Family Medicine
DX: S89.91XA Unspecified injury of right lower leg, initial encounter (principal); S39.93XA Unspecified injury of pelvis, initial encounter; I10 Essential (primary) hypertension; R51.9 Headache, unspecified; M25.511 Pain in right shoulder; M54.2 Cervicalgia; E11.9 Type 2 diabetes mellitus without complications; W10.9XXA Fall (on) (from) unspecified stairs and steps, initial encounter; Y93.9 Activity, unspecified; Y92.9 Unspecified place or not applicable; Y99.9 Unspecified external cause status; Z79.899 Other long term (current) drug therapy
CPT/HCPCS: 36415; 72170; 73030; 73552; 80053; 80143; 85025; 85610; 85730; 96372; 99284; J1885

== ENCOUNTER 2022-11-27 09:03 | Outpatient (AMB) | payer MEDICAID, SELFPAY ==
--- NOTE | 2022-11-27 09:07 | A.OFFVIS_ITS ---
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 No recent imaging or PT. Taking Tylenol for pain without relief Allergies aspirin Allergy (Unknown, Verified 11/27/22 09:19) Unknown Medication List - Last Reconciled 11/27/22 by Lilian Heredia RN albuterol sulfate 90 mcg/actuation (ProAir HFA) 2 puffs PO Q4H PRN aspirin 81 mg PO BEDTIME buprenorphine-naloxone 8-2 mg (Suboxone) 10 mg sublingual BID buspirone 7.5 mg PO BID fluticasone propionate 110 mcg/actuation (Flovent HFA) 1 puff PO BID gabapentin 300 mg PO TID glipizide 5 mg PO hydrochlorothiazide 25 mg PO QAM hydroxyzine HCl 25 mg PO Q6H PRN lisinopril 40 mg PO BEDTIME melatonin 5 - 10 mg PO BEDTIME PRN multivitamin (One Daily Multivitamin tablet) 1 tab PO BEDTIME omeprazole 20 mg PO QAM rosuvastatin 5 mg PO BEDTIME zolpidem 10 mg PO BEDTIME PRN HPI HPI Comments History of Present Illness Details Suzanne is very pleasant Sami-speaking 62 years old female who presents in my office with complains on pain in lower back with radiation into the left lower extremity to the level of the skin the left ankle but not to the foot and not to the toes. She reports that she suffered from this pain for many years however 2 years ago the pain got significantly worse. She was sent to physical therapy without no improvement at that time. She had images of the lumbar spine which are dictated as below. She reports that her pain is more severe when she is flexing herself forward than backwards. Standing increases her pain but prolonged sitting does not increase her pain. The pain increased when she is walking as well. Laying down alleviate her pain. Movements aggravate her pain. Flexing sideways especially to the left side aggravate her pain. In terms of tissue damage she reports her pain is hot burning tingling dull tiring tight and squeezing sensation. She never had any injections for to treat her pain. She reports that she is willing to have injections. Her past medical history significant for hypertension, coronary artery disease, she has a history of coronary catheterization with unknown results. She is currently on aspirin and no other blood thinners. She reports fatigue diabetes and arthritis. She denies any significant past surgical history short of that cardiac catheterization history. Social history: Admits smoking cigarettes denies drinking alcohol, denies recreational drugs and admits caffeinated beverages. [facility] Medical History Atherosclerotic cardiovascular disease Essential hypertension Other and unspecified hyperlipidemia Type 2 diabetes mellitus with unspecified complications Surgical History Hx of cardiac catheterization Family History Father Diabetes Mother No problems noted. Social History Patient Tobacco Use Status: Current someday Tobacco user Review of Systems Const Denies chills, Denies daytime sleepiness, Denies fatigue, Denies fever(s), Denies frequent falls, Denies poor appetite, Denies snoring, Denies stops breathing during sleep, Denies weakness, Denies weight gain and Denies weight loss Eyes Denies loss of vision ENT Reports Normal hearing present, Denies dizziness and Denies hearing loss Card Denies chest pain, Denies claudication, Denies leg edema, Denies lightheadedness, Denies palpitations, Denies dyspnea, Denies dyspnea on exertion and Denies orthopnea Resp Denies cough, Denies excessive phlegm production, Denies dyspnea, Denies dyspnea on exertion, Denies snoring and Denies wheezing GI Denies abdominal pain, Denies hematochezia, Denies change in bowel habits, Denies nausea and Denies vomiting Denies urinary frequency and Denies dysuria Musc Denies arthralgias, Denies muscle weakness, Denies numbness and Denies other (frequent falls) Skin/Breast Denies nail changes and Denies rash Neuro Reports Normal hearing present, Denies Abnormal speech present, Denies dizziness, Denies frequent falls, Denies loss of vision, Denies memory loss, Denies numbness, Denies Sensory deficit (Neuro) and Denies weakness Psych Denies depression and Denies memory loss Endo Denies fatigue and Denies palpitations Deuce/Lymph Reports easy bruising Aller/Immun Denies wheezing Physical Exam Vital Signs: Last Vital Signs Pulse 71 11/27/22 09:16 BP 170/90 H 11/27/22 09:16 Pulse Ox 94 11/27/22 09:16 Oxygen Delivery Method Room Air 11/27/22 09:16 BMI result Body Mass Index 28.9 Const General: no acute distress Orientation/consciousness: patient oriented x3 Eyes General: appearance normal, both eyes and all related structures Pupils: Equal, round and reactive pupils present EOM: EOMs intact bilaterally Neck Neck: Yes full ROM Chest Chest palpation & inspection: normal inspection of the chest Resp Effort & Inspection: normal respiratory effort, able to speak in complete sentences, normal respiratory pattern, no audible wheezes and no cough Cardio Jugular venous distension: no JVD GI Inspection: Yes normal to inspection Back/Spine/Pelvis Other: Patient demonstrates normal strength of bilateral lower extremities. There is no gait changes. Loading test is positive on the left and negative on the right. Flexing forward aggravates pain more than flexing backwards. SLR is negative on the right and may be equivocal on the left. Lassegue test is negative on the right and also may be equivocal on the left, possibly positive on the left. Benedicto test is negative on the right and may be equivocal on the left, pelvis compression test and pelvic destruction tests are negative- bi laterally. Neuro General: patient oriented x3 and gait normal Cranial nerves: Yes CN's II-XII intact bilaterally, Yes Equal, round and reactive pupils present, Yes Normal hearing present and Yes Ability to bilaterally elevate shoulders present Speech: No Abnormal speech present Gait exam (Neuro): Normal gait present Motor exam (neuro): 5/5 motor strength present throughout Sensory Exam: No Sensory deficit (Neuro) Extrem General: No pedal edema Psych Speech and movement: Normal speech and movement present Affect: normal affect Attitude: cooperative Thought process: Normal thought process present Thought content: Normal thought content present Insight: Good insight present (Psych) Judgement: Good judgement present (Psych) Results Reviewed Results Reviewed: X-ray PELVIS AP view of the pelvis. FINDINGS: Mild bilateral hip and pubic symphysis degenerative joint changes are seen. There is no acute fracture or dislocation. The bony pelvis is intact. The soft tissues are unremarkable. R LUMBAR SPINE WITHOUT CONTRAST CLINICAL INFORMATION: Low back and left leg pain. COMPARISON: X-ray dated 10/09/2018. TECHNIQUE: MRI of the lumbar spine was obtained using routine sequences without contrast. FINDINGS: VERTEBRAL BODIES AND PARASPINAL STRUCTURES: There is a mild leftward lumbar spinal curvature. Mixed chronic and mild edematous endplate changes are visible from the L3-S1 levels. There is cnjm-xs-bplxcjyy disc space narrowing lateralized more so to the right side at the L3-L4 level and to the left side at the L5-S1 level as result of spondylosis in the degenerative curvature. The marrow signal is heterogeneous with regions of fatty change. No compression fractures are identified. Mild posterior subluxation evident at L3-L4 and L1-L2. Grade 1 anterolisthesis evident at the L4-L5 level without obvious L4 pars defects. The paraspinal soft tissues are unremarkable. Imaged bony pelvis appears normal. CONUS MEDULLARIS AND CAUDA EQUINA: Normal, terminating at the level of L1. No lower cord signal abnormality is seen. The cauda equina nerve roots appear normal. SPINAL LEVELS: L1-L2: Ydjh-vy-ipxjymhc loss of disc height and retrosubluxation with an anterior disc bulge. Patent foramina. No significant central canal stenosis. L2-L3: Very mild disc bulge and mild facet arthropathy without central canal stenosis or foraminal narrowing. Anterior endplate spurring. L3-L4: Moderate right lateralized disc space narrowing with endplate spurring and a right lateral disc bulge. No central canal stenosis. Mild facet arthropathy. Bulging disc and osseous spurring result in moderate right foraminal encroachment, contacting and impressing upon the exiting right L3 nerve root. Mild retrosubluxation. L4-L5: Anterolisthesis and unroofing of the disc with severe facet arthropathy and a broad-based posterior disc bulge in addition to endplate spurring which results in severe central canal stenosis and thecal sac compression. Mass effect upon the L5 nerve roots in the subarticular zones bilaterally. Additional unroofed bulging disc and osseous spurring result in qdqevizh-fa-mxhllc foraminal encroachment and distortion of the exiting right L4 nerve root. L5-S1: Disc bulge lateralized to the left side with endplate spurring facet arthropathy resulting in severe left foraminal encroachment and compression of the exiting left L5 nerve root. Bulging disc mildly impresses upon the ventral thecal sac and left S1 nerve root without central canal stenosis. IMPRESSION: Leftward lumbar spinal curvature and multilevel spondylosis with subluxations as described. Moderate disc space narrowing lateralized to the right side at L3-L4 with bulging disc and osseous spurring result in moderate right foraminal encroachment and distortion of the exiting right L3 nerve root. Anterior subluxation and severe facet arthropathy with a disc bulge and osseous spurring at the L4-L5 level resulting in severe central canal stenosis. Mass effect upon both L5 nerve roots and the exiting right L4 nerve root due to severe right foraminal encroachment. Left lateralized disc bulge and endplate spurring at L5-S1 with severe left foraminal encroachment and compression of the exiting left L5 nerve root. Assessment & Plan Assessment & Plan (1) Disc degeneration, lumbar: Code(s): M51.36 - Other intervertebral disc degeneration, lumbar region (2) Spondylosis of lumbar region without myelopathy or radiculopathy: Code(s): M47.816 - Spondylosis without myelopathy or radiculopathy, lumbar region (3) Lumbosacral radiculopathy: Code(s): M54.17 - Radiculopathy, lumbosacral region (4) Facet arthropathy, lumbar: Code(s): M47.816 - Spondylosis without myelopathy or radiculopathy, lumbar region (5) Chronic pain syndrome: Code(s): G89.4 - Chronic pain syndrome Plan The patient is suffering from disc degeneration lumbar and spondylosis of the lumbar spine as it is demonstrated on MRI. Low suspicion for left sacroiliitis, the provocation tests in to be negative. Strong suspicion for facet arthropathy. Patient is had a history of coronary artery disease however there is no history of the stent. I think we can perform diagnostic medial branch block L2-L3-L4-* on the left side to diagnose her pain and possibly open avenue for neuromodulation treatment or radiofrequency ablation. However will ask Dr. Mcnair to allow is to stop aspirin for this patient. Alternatively on the MRI left L5 exiting nerve root is compressed and could be another target of the injection for L5-S1 transforaminal epidural steroid injection on the left. That will be done only if diagnostic medial branch block will result in no improvement. I will see this patient after the procedure. Coding Level of Care Code New Pt Level 4 (43408) Diagnoses Disc degeneration, lumbar M51.36 Spondylosis of lumbar region without myelopathy or radiculopathy M47.816 Lumbosacral radiculopathy M54.17 Facet arthropathy, lumbar M47.816 Chronic pain syndrome G89.4
[2022-11-27 09:16] VITALS: BP 170/90; PULSE 71; O2SAT 94; BMI 28.9
== END 2022-11-27 10:05 | disposition home or self-care (01) ==
PROVIDERS: PCP Family Medicine; Visit Provider Anesthesiology
DX: M51.36 Other intervertebral disc degeneration, lumbar region (principal); M47.816 Spondylosis without myelopathy or radiculopathy, lumbar region; M54.17 Radiculopathy, lumbosacral region; G89.4 Chronic pain syndrome
CPT/HCPCS: 99204

== ENCOUNTER → 2022-11-27 09:03 | Outpatient (BNVA) | payer MEDICAID, SELFPAY | PROVIDERS: PCP Family Medicine; Visit Provider Anesthesiology ==

== ENCOUNTER 2022-12-12 05:57 | Outpatient (REF) | payer MEDICAID, SELFPAY | END 2022-12-12 05:58 | disposition home or self-care (01) | LOC: CF 05:57 | PROVIDERS: Visit Provider Anesthesiology | DX: Z13.89 Encounter for screening for other disorder (principal) ==

== ENCOUNTER 2023-01-09 06:05 | Outpatient (REF) | payer MEDICAID, SELFPAY ==
--- NOTE | ~2023-01-09 | FL_ITS ---
EXAMINATION: XR FLUOROSCOPY WITH IMAGES CLINICAL INFORMATION: Spondylosis without myelopathy or radiculopathy, lumbar region. Left lumbar injection. COMPARISON: None available. TECHNIQUE: Fluoroscopy Supervised By: Dr. William Ramirez. Fluoroscopy Time: 0.2 minutes. Cumulative Dose: 4.16 mGy. DAP: 0.0723 Gycm2. Images: 3. FINDINGS: Images demonstrate needle placement and contrast injection adjacent to the left lateral L3, L4 and L5 vertebrae FL/FL guidance in treatment room IMPRESSION: Fluoroscopy guidance for pain management procedure
== END 2023-01-09 06:06 | disposition home or self-care (01) ==
LOC: CF 06:05
PROVIDERS: Visit Provider Anesthesiology
DX: M47.816 Spondylosis without myelopathy or radiculopathy, lumbar region (principal); M51.36 Other intervertebral disc degeneration, lumbar region; M54.17 Radiculopathy, lumbosacral region; G89.4 Chronic pain syndrome
CPT/HCPCS: 64493; 64494; J2795

== ENCOUNTER 2023-01-09 08:01 | Outpatient (AMB) | payer MEDICAID, SELFPAY ==
[2023-01-09 08:13] VITALS: BP 128/78; PULSE 60; RESP 16; O2SAT 97; BMI 28.9
--- NOTE | 2023-01-09 08:13 | MHC.OFFVIS ---
Intake Vital Signs 01/09/23 08:13 01/09/23 09:08 Height 5 ft 2 in 5 ft 2 in Weight 158 lb 158 lb BMI 28.9 28.9 BP 128/78 114/78 Blood Pressure Location Lt brachial Lt brachial Position Sitting Sitting Respiration 16 16 Pulse 60 62 Pulse Source Pulse Oximeter Pulse Oximeter Pulse Oximetry (%) 97 96 Oxygen Delivery Method Room Air Room Air Comment Pre-Op Post-Op Intake Visit Reasons: LEFT DIAGNOSTIC L2, L3, L4 MBB Allergies aspirin Allergy (Unknown, Verified 11/27/22 09:19) Unknown [facility] Medical History Atherosclerotic cardiovascular disease Essential hypertension Other and unspecified hyperlipidemia Type 2 diabetes mellitus with unspecified complications Surgical History Hx of cardiac catheterization Family History Father Diabetes Mother No problems noted. Social History Patient Tobacco Use Status: Current someday Tobacco user Physical Exam Vital Signs: Last Vital Signs Pulse 62 01/09/23 09:08 Resp 16 01/09/23 09:08 BP 114/78 01/09/23 09:08 Pulse Ox 96 01/09/23 09:08 Oxygen Delivery Method Room Air 01/09/23 09:08 BMI result Body Mass Index 28.9 Assessment & Plan Assessment & Plan (1) Disc degeneration, lumbar: Code(s): M51.36 - Other intervertebral disc degeneration, lumbar region (2) Spondylosis of lumbar region without myelopathy or radiculopathy: Code(s): M47.816 - Spondylosis without myelopathy or radiculopathy, lumbar region Plan: Diagnostic medial branch block L3,L4 dorsal ramus L5 on the left? ? ?Informed consent was explained to the patient. All questions were explained and? answered.? The patient was taken inside the operating room where she was positioned prone on the operating table. Time-out was performed delineating correct site, side, the nature of the procedure, patient's allergy, . All operating room staff was participating in OR time-out procedure. ? ? The lower back was prepped with ChloraPrep and draped with sterile towels.? C-arm was brought over the operating field and sq picture of L3, L4-, L5 vertebra delineated on the screen.? Point of interest were delineated as confluence of superior articular process of L3, L4 and L5 vertebra on the left with corresponding transverse processes.? The projection of the point of interest to the skin were injected with the small amount of local anesthetic lidocaine 2% 1 cc.? After that 22 gauge 3.5 inch spinal needle was driven sequentially to the points of interest in tunnel vision fashion. After needles gently contacted the bone at the point of interests the needle was injected with small amount of the contrast.? The injection of the contrast did not demonstrate any intravascular or intrathecal spread of the contrast.? After that injection of the? ropivacaine 0.5%-1cc was performed at each needle location.??after that the needles were removed and Bandaids were applied. ? Upon completion of the injections? needle was? removed and sterile Band-Aids were applied.? The patient tolerated procedure very well. (3) Lumbosacral radiculopathy: Code(s): M54.17 - Radiculopathy, lumbosacral region (4) Facet arthropathy, lumbar: Code(s): M47.816 - Spondylosis without myelopathy or radiculopathy, lumbar region (5) Chronic pain syndrome: Code(s): G89.4 - Chronic pain syndrome Plan The patient is suffering from disc degeneration lumbar and spondylosis of the lumbar spine as it is demonstrated on MRI. Low suspicion for left sacroiliitis, the provocation tests in to be negative. Strong suspicion for facet arthropathy. Patient is had a history of coronary artery disease however there is no history of the stent. I think we can perform diagnostic medial branch block L2-L3-L4-* on the left side to diagnose her pain and possibly open avenue for neuromodulation treatment or radiofrequency ablation. However will ask Dr. Mcnair to allow is to stop aspirin for this patient. Alternatively on the MRI left L5 exiting nerve root is compressed and could be another target of the injection for L5-S1 transforaminal epidural steroid injection on the left. That will be done only if diagnostic medial branch block will result in no improvement. I will see this patient after the procedure. Coding Level of Care Code Procedure Only Diagnoses Disc degeneration, lumbar M51.36 Spondylosis of lumbar region without myelopathy or radiculopathy M47.816 Lumbosacral radiculopathy M54.17 Facet arthropathy, lumbar M47.816 Chronic pain syndrome G89.4
[2023-01-09 09:08] VITALS: BP 114/78; PULSE 62; RESP 16; O2SAT 96; BMI 28.9
== END 2023-01-09 09:07 | disposition home or self-care (01) ==
LOC: HO.PMCPRC 08:01
PROVIDERS: PCP Family Medicine; Visit Provider Anesthesiology
DX: M51.36 Other intervertebral disc degeneration, lumbar region (principal); M47.816 Spondylosis without myelopathy or radiculopathy, lumbar region; M54.17 Radiculopathy, lumbosacral region; G89.4 Chronic pain syndrome
CPT/HCPCS: 64493; 64494

== ENCOUNTER 2023-01-30 07:53 | Outpatient (AMB) | payer MEDICAID, SELFPAY ==
[2023-01-30 08:03] VITALS: BP 130/70; BMI 28.6
--- NOTE | 2023-01-30 08:03 | MHC.OFFVIS ---
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 The patient has a history of ascus HPV positive in 09/04, according to the record, the patient was referred for colposcopy but did not show up her appointment . Co testing done in 10/02 and 05/04 both were negative. [facility] Medical History Other and unspecified hyperlipidemia Essential hypertension Type 2 diabetes mellitus with unspecified complications Atherosclerotic cardiovascular disease Surgical History Hx of cardiac catheterization Family History Father Diabetes Mother No problems noted. Social History Patient Tobacco Use Status: Current someday Tobacco user Review of Systems Const All systems reviewed & are unremarkable except as noted in HPI and below Physical Exam Vital Signs: Last Vital Signs BP 130/70 01/30/23 08:03 BMI result Body Mass Index 28.6 General: Yes no CVA tenderness External Female Exam: normal external appearance and normal appearance of the urethra Speculum Exam - Vagina: normal appearance of the vagina, normal palpation, no lesions and no masses Speculum Exam - Cervix: normal appearance of the cervix, normal palpation, no lesions, no masses and nontender Bimanual exam- vagina & uterus: normal bimanual exam, normal palpation, uterine size normal, normal palpation, uterine shape normal, No Cervical tenderness present and non-tender Bimanual Exam- Adnexa, other: normal adnexae Back/Spine/Pelvis Back: no CVA tenderness Office Procedures Colposcopy Before the procedure was started discussed with the patient the procedure, alternatives & all the risks associated with the procedure (bleeding, infection, injury to vagina, bladder, vessels, possible need for transfusion with all its risks) then patient signed the consent Pap smear = ascus/HPV positive in 07/09, AKREN/HPV positive in 2018 with no colposcopy Speculum inserted, acetic acid used Colposcopy done Transformation zone seen, acetowhite lesions identified at 5+6+7+11+12+2 o?clock, cervical biopsies taken from 5+6+7+11+12+2 o?clock, ECC done afterwards. Vaginoscopy of the upper vagina showed no evidence of any aceto-white lesions Monsel solution used for hemostasis. The patient tolerated well . At the end the patient was instructed to call if temp>100.4, abdominal pain, n/v, bleeding; The patient was given the following instructions: nothing per vagina, no intercourse or bath tub use. All questions answered the patient verbalized understanding. Instructed the patient to make an appointment in 2 weeks for follow-up This note was generated with a voice recognition program. Some errors may have been overlooked during the review of this note. Sometimes these errors may affect the content or meaning of a given sentence. [id number] of cervix including upper vagina with biopsy and ECC Procedure code (CPT) selection complete Endometrial Biopsy Details: The patient was counseled regarding the indication and benefits of endometrial sampling to rule out endometrial pathology including not limited to endometrial hyperplasia or endometrial cancer and others; The alternatives (Either do nothing vs. hysteroscopy D&C) & the risks were discussed with the patient including but not limited: pain, uterine perforation, bleeding, infection, possible injury to bladder, bowel, ureter, possible need for blood transfusion with all its possible risks. The patient verbalized understanding all questions answered and signed consent. The patient was placed into the dorsal lithotomy position; a speculum was inserted in the vagina. Using aseptic technique for the procedure, the cervix was cleansed with Betadine. The anterior lip of the cervix was grasped with a single tooth tenaculum. The uterus was sounded to 7 cm with a 4 mm Pipelle was used. Tissues samples were obtained and placed in formalin, in a patient labeled container and sent to the pathology department. At the end of the procedure, there was minimal bleeding noted The patient tolerated the procedure well and was discharged in good condition with the following instructions: Nothing in the vagina until the bleeding stops. No sex until the bleeding stops, to call if any of the following occurs: fever (>100.4), flu-like symptoms, abdominal pain, heavy bleeding, four smelling vaginal discharge. The patient was instructed to schedule a Follow up appointment in 2 weeks to discuss pathology results of the biopsy and treatment options. This note was generated with a voice recognition program. Some errors may have been overlooked during the review of this note. Sometimes these errors may affect the content or meaning of a given sentence. [id number] Biopsy Assessment & Plan Assessment & Plan (1) ASCUS with positive high risk HPV cervical: Comment: History of KAREN/HPV positive in 2019 with no colposcopy Code(s): R87.610 - Atypical squamous cells of undetermined significance on cytologic smear of cervix (ASC-US); R87.810 - Cervical high risk human papillomavirus (HPV) DNA test positive Plan: Discussed with the patient the result of her abnormal pap in 07/09 in in 2019, its significance, risk of progression, persistence, and regression if untreated. the false positive/negative rate being a screening test, the indication for diagnostic test -colposcopy, biopsy, endocervical curettage and EMB to rule out cervical, endocervical and endometrial pathology. The patient verbalized understanding and agreed with the plan, all questions answered. Colpo/biopsy/ECC/EMB done [place] see procedure note Orders: Orders AMB Colposcopy Today R87.610 - Atypical squamous cells of undetermined significance on cytologic smear of cervix (ASC-US), R87.810 - Cervical high risk human papillomavirus (HPV) DNA test positive AMB Endometrial Biopsy Today R87.610 - Atypical squamous cells of undetermined significance on cytologic smear of cervix (ASC-US), R87.810 - Cervical high risk human papillomavirus (HPV) DNA test positive Coding Level of Care Code New Pt Level 3 (90772) Procedure Only Diagnoses ASCUS with positive high risk HPV cervical R87.610; R87.810 CPT Codes Colposcopy - CPT: 96718-Qrwflukoy of cervix including upper vagina with biopsy and ECC ([id number]) Endometrial Biopsy - CPT: 78856-Uojpkdvtmai Biopsy ([id number])
== END 2023-01-30 08:48 | disposition home or self-care (01) ==
PROVIDERS: PCP Family Medicine; Visit Provider Obstetrics & Gynecology
DX: R87.610 Atypical squamous cells of undetermined significance on cytologic smear of cervix (ASC-US) (principal); R87.810 Cervical high risk human papillomavirus (HPV) DNA test positive
CPT/HCPCS: 57454; 58110; 99203

== ENCOUNTER 2023-01-30 07:53 | Outpatient (REF) | payer MEDICAID, SELFPAY | END 2023-01-30 07:54 | disposition home or self-care (01) | LOC: HO.LNP 07:53 | PROVIDERS: PCP Family Medicine; Visit Provider Obstetrics & Gynecology | DX: R87.610 Atypical squamous cells of undetermined significance on cytologic smear of cervix (ASC-US) (principal); R87.810 Cervical high risk human papillomavirus (HPV) DNA test positive | CPT/HCPCS: 57454; 58110; 88305; 88341; 88342; 88360; 99202 ==

== ENCOUNTER 2023-02-15 11:17 | Outpatient (AMB) | payer MEDICAID, SELFPAY ==
--- NOTE | 2023-02-15 11:18 | A.OFFVIS_ITS ---
Intake Vital Signs 02/15/23 11:24 Height 5 ft 2 in Weight 156 lb 8.451 oz BMI 28.6 BP 142/80 H Intake Visit Reasons: pre op /leep Social Economist Required: Yes Social Economist Language: Collar Tacker Name: Mabel DUENAS Information Interpreted: non-clinical & clinical Sociology Research Assistant: Sociology Research Assistant Present Accompanied by: Daughter Allergies aspirin Allergy (Unknown, Verified 02/15/23 11:25) Unknown Is last menstrual period known: Yes Last menstrual period: 01/15/20 Post menopausal: No Patient : No Do you need a note to return to daycare/school/sports/work: Yes (for surgery on sunday) HPI HPI Comments History of Present Illness Details Presenting post colpo/ECC/EMB for follow-up. The patient is doing well with no complaints. The pathology showed the following: A. Endometrium, biopsy: Superficial fragment of benign endometrial and rare endocervical epithelium; no atypia identified. B. Endocervix, curettage: - High-grade squamous intraepithelial le andre (VIVIAN 3) - Background inflamed endocervical and s quamous epithelium. C. Cervix, 2 o'clock, biopsy: - Low-grade squamous intraepithelial les ion (VIVIAN 1). - No endocervical epithelium identified. D. Cervix, 5 o'clock, biopsy: - Inflamed squamous mucosa with reactive changes. - No endocervical epithelium identified. E. Cervix, 6 o'clock, biopsy: - High-grade squamous intraepithelial le andre (VIVIAN 3) - Background inflamed endocervical and s quamous epithelium. F. Cervix, 7 o'clock, biopsy: Inflamed endocervical and squamous mucosa with reactive changes. G. Cervix, 11 o'clock, biopsy: - Low-grade squamous intraepithelial les ion (VIVIAN 1). - Background inflamed endocervical mucos a with reactive changes. H. Cervix, 12 o'clock, biopsy: - Low-grade squamous intraepithelial les ion (VIVIAN 1). - No endocervical epithelium identified [facility] Medical History Other and unspecified hyperlipidemia Essential hypertension Type 2 diabetes mellitus with unspecified complications Atherosclerotic cardiovascular disease Surgical History Hx of cardiac catheterization Family History Father Diabetes Mother No problems noted. Social History Patient Tobacco Use Status: Current someday Tobacco user Female Reproductive History Menstrual Date of last menstrual period: 01/15/20 Total pregnancies: 2 Full term: 2 Review of Systems Card Reports as per HPI and Reports no additional complaints Resp Reports as per HPI and Reports no additional complaints GI Reports as per HPI and Reports no additional complaints Reports as per HPI Physical Exam Const General: cooperative, healthy appearing and comfortable Chest Chest palpation & inspection: normal inspection of the chest and normal palpation of entire chest wall Breast/axilla inspection: normal inspection of the breasts and normal inspection of the axillae Breast/axilla palpation: normal palpation of the breasts, normal palpation of the axillae and no axillary lymphadenopathy Resp Effort & Inspection: normal respiratory effort Auscultation: clear to auscultation bilaterally Percussion: percussion normal Cardio Palpation: normal PMI Rate: regular rate Rhythm: regular rhythm Heart sounds: no murmurs and no rubs Peripheral pulses: Peripheral pulses 2+ throughout GI Inspection: Yes normal to inspection Palpation (GI): Soft to palpation, nontender, no guarding, not rigid and No hepatosplenomegaly present Percussion: Yes normal to percussion Auscultation: normal bowel sounds Rectal Exam - Female: deferred Assessment & Plan Assessment & Plan (1) VIVIAN III (cervical intraepith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: Code(s): D06.9 - Carcinoma in situ of cervix, unspecified Plan: Discussed the patient the results of the colposcopy showing VIVIAN 3 with positive endocervical curettage. Recommended LEEP cone with post cone ECC. Discussed with the patient the procedure, its benefits and risks including bleeding, infection, possible need for blood transfusion with all its risk ( HIV, syphilis, Hepatitis, anaphylaxis shock, others..), injury to bladder, rectum, possible re-excision for positive margins, potential need for hysterectomy, possible future negative impact on fertility including ( cervical stenosis, incompetence , increase risk for c section 2ndary to cervical scarring and failure of dilatation), possible positive margin necessitating re-excision. Also discussed the patient options of anesthesia either paracervical block versus IV sedation/MAC, prefers to proceed with IV sedation/MAC. Since the patient has a history of diabetes , hypertension hyper lipidemia and coronary artery disease will ask the patient to call her PCP for medical clearance prior to scheduling the procedure. Instructions given the patient to call after seei ng her PCP with medical clearance in order to schedule the procedure as soon as possible. All questions answered, the patient verbalized understanding and signed the consent. Coding Level of Care Code Est Pt Level 3 (44442) Diagnoses VIVIAN III (cervical intraepith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 D06.9
[2023-02-15 11:24] VITALS: BP 142/80; BMI 28.6
== END 2023-02-15 11:51 | disposition home or self-care (01) ==
PROVIDERS: PCP Family Medicine; Visit Provider Obstetrics & Gynecology
DX: D06.9 Carcinoma in situ of cervix, unspecified (principal)
CPT/HCPCS: 99213

== ENCOUNTER → 2023-02-15 11:17 | Outpatient (BNVA) | payer MEDICAID, SELFPAY | PROVIDERS: PCP Family Medicine; Visit Provider Obstetrics & Gynecology | DX: D06.9 Carcinoma in situ of cervix, unspecified (principal) | CPT/HCPCS: 99212 ==

== ENCOUNTER 2023-02-21 10:33 | Outpatient (REF) | payer MEDICAID, SELFPAY ==
[2023-02-21 11:41] LABS: Estimated Average Glucose 237 mg/dL; Hemoglobin A1c % 9.9 % (<6.0)
[2023-02-21 12:13] LABS: Alanine Aminotransferase 21 U/L (0-31); Albumin Level 4.1 g/dL (3.5-5.0); Alkaline Phosphatase 96 U/L (39-117); Anion Gap 16 (12-20); Aspartate Amino Transferase 18 U/L (5-31); Bilirubin Total 0.5 mg/dL (0.0-1.0); Blood Urea Nitrogen 29 mg/dL (9-16); Calcium 9.9 mg/dL (8.4-10.2); Carbon Dioxide 30 mmol/L (22-29); Chloride 94 mmol/L (96-108); Estimated Glomerular Filt Rate 58; Glucose Random 295 mg/dL (60-115); Potassium 4.7 mmol/L (3.3-5.1); Sodium 135 mmol/L (135-145)
== END 2023-02-21 10:34 | disposition home or self-care (01) ==
LOC: HO.HHCL 10:33
PROVIDERS: Visit Provider Registered Nurse
DX: Z01.810 Encounter for preprocedural cardiovascular examination (principal)
CPT/HCPCS: 36415; 80053; 83036

== ENCOUNTER 2023-02-26 12:29 | Outpatient (AMB) | payer MEDICAID, SELFPAY ==
--- NOTE | 2023-02-26 12:33 | A.OFFVIS_ITS ---
Intake Vital Signs 02/26/23 12:36 Height 5 ft 2 in Weight 158 lb 11.725 oz BMI 29.0 BP 110/62 Blood Pressure Location Lt brachial Position Sitting Pulse 74 Intake Visit Reasons: cardiac clearance/ Intake Note: cardiac clearance Oracle Specialist Required: Yes Oracle Specialist Language: Diesel Truck Driver Name: [id number] Accompanied by: LITHARGE MILL OPERATOR Allergies aspirin Allergy (Unknown, Verified 02/26/23 12:37) Unknown Medication List - Last Reconciled 02/26/23 by Fritz Mcnair MD albuterol sulfate 90 mcg/actuation (ProAir HFA) 2 puffs PO Q4H PRN fluticasone propionate 110 mcg/actuation (Flovent HFA) 1 puff PO BID gabapentin 300 mg PO TID glipizide 5 mg PO hydrochlorothiazide 25 mg PO QAM hydroxyzine HCl 25 mg PO Q6H PRN lisinopril 40 mg PO BEDTIME melatonin 5 - 10 mg PO BEDTIME PRN methadone 130 mg PO DAILY multivitamin (One Daily Multivitamin tablet) 1 tab PO BEDTIME omeprazole 20 mg PO QAM rosuvastatin 5 mg PO BEDTIME zolpidem 10 mg PO BEDTIME PRN HPI HPI Comments History of Present Illness Details Suzanne is here for preoperative evaluation before gynecological procedure. She was last seen about 2 years ago. History of coronary disease. She apparently had a myocardial infarction in 1995 when she underwent cardiac catheterization. However, does not have any regular follow-up. Has many comorbidities. She states within limits of activity does not have any exertional angina or shortness of breath or any other cardiac symptoms. She is on methadone. She states last used heroin may be an year ago or so. Denies any current use of drugs. [facility] Medical History Other and unspecified hyperlipidemia Essential hypertension Type 2 diabetes mellitus with unspecified complications Atherosclerotic cardiovascular disease Surgical History Hx of cardiac catheterization Family History Father Diabetes Mother No problems noted. Social History Patient Tobacco Use Status: Current someday Tobacco user Review of Systems Const Denies weakness ENT Denies dizziness Card Denies chest pain, Denies chest pain with activity, Denies syncope, Denies rapid heart rate, Denies pedal edema, Denies edema, Denies leg edema, Denies lightheadedness, Denies dyspnea, Denies dyspnea on exertion and Denies orthopnea Resp Denies cough, Denies dyspnea and Denies dyspnea on exertion GI Denies hematochezia and Denies change in stool character Musc Denies abnormal gait, Denies muscle cramps, Denies muscle weakness, Denies numbness, Denies radiating pain into limb and Denies tingling Neuro Denies abnormal gait, Denies dizziness, Denies syncope, Denies numbness, Denies tingling and Denies weakness Physical Exam Vital Signs: Last Vital Signs Pulse 74 02/26/23 12:36 BP 110/62 02/26/23 12:36 BMI result Body Mass Index 29.0 Const General: comfortable and no acute distress Orientation/consciousness: patient oriented x3 HEENT Other: Unremarkable Head: Yes normal to inspection Neck Neck: Yes normal visual inspection Chest Chest palpation & inspection: normal inspection of the chest Resp Auscultation: clear to auscultation bilaterally Cardio Palpation: normal PMI Heart sounds: S1 normal heart sound present, S2 normal heart sound present, no gallops, no murmurs and no rubs GI Palpation (GI): Soft to palpation Back/Spine/Pelvis Other: unremarkable Skin General skin exam: no rashes or lesions noted Neuro General: patient oriented x3 Extrem General: Yes normal to inspection Psych Mental Status: mental status grossly normal Assessment & Plan Assessment & Plan (1) Atherosclerotic cardiovascular disease: Code(s): I25.10 - Atherosclerotic heart disease of [place] coronary artery without angina pectoris (2) Preoperative cardiovascular examination: Code(s): Z01.810 - Encounter for preprocedural cardiovascular examination Plan Cardiac catheterization data reviewed from 1995. Mid LAD with 50% stenosis. Diagonal with 90% stenosis. Does not appear she underwent any PCI. Last EKG available shows sinus rhythm at 63/Min; old septal infarct and nonspecific ST-T changes. There is unchanged from 10 years ago. Many comorbidities, history of substance abuse, coronary disease, needing gynecological procedure. Recommend at least getting echocardiogram to evaluate for cardiomyopathy. Otherwise, likely intermediate risk and may plan on proceeding unless any unexpected findings on the echocardiogram. Due to history of coronary disease, suggest taking long-term aspirin and we discussed this today. Orders: Orders CA echo transthoracic complete Today I25.10 - Atherosclerotic heart disease of [place] coronary artery without angina pectoris Coding Level of Care Code Est Pt Level 4 (61776) Diagnoses Atherosclerotic cardiovascular disease I25.10 Preoperative cardiovascular examination Z01.810
[2023-02-26 12:36] VITALS: BP 110/62; PULSE 74; BMI 29.0
== END 2023-02-26 12:56 | disposition home or self-care (01) ==
PROVIDERS: PCP Family Medicine; Visit Provider Internal Medicine
DX: I25.10 Atherosclerotic heart disease of native coronary artery without angina pectoris (principal); Z01.810 Encounter for preprocedural cardiovascular examination
CPT/HCPCS: 99214

== ENCOUNTER → 2023-02-26 12:29 | Outpatient (BNVA) | payer MEDICAID, SELFPAY | PROVIDERS: PCP Family Medicine; Visit Provider Internal Medicine | DX: Z01.810 Encounter for preprocedural cardiovascular examination (principal); I25.10 Atherosclerotic heart disease of native coronary artery without angina pectoris | CPT/HCPCS: 99212 ==

== ENCOUNTER → 2023-02-27 08:15 | Outpatient (REF) | payer MEDICAID, SELFPAY ==
--- NOTE | 2023-02-27 08:21 | CA_ITS ---
Transthoracic Echocardiogram Patient (Last, First, Middle): Suzanne Campbell S Gender: Female Date of : 1960 Age: 62 Procedure Date: 02/27/2023 Procedure Type: Transthoracic Echocardiogram Location: OP Height: 157.48 cm Weight: 71.67 kg BSA: 1.73 m2 Heart Rate: 68 bpm BP: 112 / 68 mmHg Head Tennis Coach: SB Referring MD: Fritz Mcnair MD Symptoms: I25.10 - Atherosclerotic heart disease of [place] coronary artery without... Study Quality: Adequate ECG Rhythm: Sinus Conclusions: - The left ventricular systolic function is hyperdynamic. The visually estimated ejection fraction is >70%. - No obvious valvular pathology seen on this study. Findings Left Ventricle Normal left ventricular cavity size. There is normal left ventricular wall thickness. The left ventricular systolic function is hyperdynamic. The visually estimated ejection fraction is >70%. There is no evidence of regional wall motion abnormalities. Diastolic function is normal for age. Right Ventricle Normal right ventricular cavity size and systolic function. Atria Both atria are normal in size. Aortic Valve There is a normal trileaflet aortic valve. There is mild calcification of the aortic valve. There is no aortic valve stenosis. There is no aortic valve regurgitation. Mitral Valve The mitral valve appears normal. There is mild mitral annular calcification. There is no mitral valve regurgitation. There is no mitral valve stenosis. Pulmonic Valve The pulmonic valve is likely normal. Tricuspid Valve Normal tricuspid valve structure. There is trace tricuspid valve regurgitation. There is no evidence of pulmonary hypertension. Great Vessels The asc aorta is normal in size. Venous The inferior vena cava is normal in size and collapses greater than 50% with inspiration. Pericardium/Pleural There is no evidence of pericardial effusion. Prior Study Comparison No significant change compared to prior study dated: 05/14/2018. Recommendations, Care & Conclusions No obvious valvular pathology seen on this study. Measurements 2D Linear Measurements IVSd: 0.64 0.6-0.9/0.6-1.0 cm LVIDd: 4.44 3.9-5.3/4.2-5.9 cm LVIDd Index: 2.57 2.4-3.2/2.2-3.1 cm/m2 LVIDs: 2.11 2.0-3.6 cm LVPWd: 0.70 0.7-1.1 cm LA Diam: 3.90 2.7-3.8/3.0-4.0 cm LAIDs Index: 2.25 1.5-2.3 cm/m2 LV Mass: 109.69 67-162/88-224 g LV Mass Index: 63.41 43-95/49-115 g/m2 LVOT Diam: 2.10 3.0+(-)1.3 cm 2D Systolic Function EF 4C: 76.80 >55% Mitral Valve MV Pk E: 0.75 MV PK A: 0.70 MV Decel Time: 259.00 E/A: 1.10 E'Lateral: 7.29 E'Medial: 5.66 E/E' Med: 13.20 E/E' Lat: 10.20 PHT: 76.00 MVA PHT: 2.89 Decel [place]: 2.87 Aortic Valve AoV Pk Kervin: 1.77 AoV Pk Grad: 13.00 SERGIO: 2.56 LVOT LVOT Pk Kervin: 1.31 LVOT Mn Kervin: 0.90 LVOT VTI: 0.29 LVOT Pk Grad: 7.00 LVOT Mn Grad: 4.00 LVOT Diam: 2.10 LVOT Area: 3.46 Diastolic Function MV Pk E: 0.75 MV Pk A: 0.70 E/A: 1.10 E'Medial: 5.66 E/E' Med: 13.20 E' Laterial: 7.29 E/E' Lat: 10.20 Right Ventricle TAPSE (mm): 24.40 TVS' Kervin: 14.80 Tricuspid Valve TR Pk Kervin: 2.58 TR Pk Grad: 27.00 RA Press: 3.00 RVSP: 30.00 Great Vessels Aorta Sinus of Valsalva: 2.70 2.0-3.5 cm Ao Asc: 3.60 2.1-3.4 cm Pulmonary Veins Pulm Vein S/D 1.20 Pulmonary Valve PV Pk Kervin: 1.19 Peak PV Grad: 6.00 Updated in Other Vendor System with Status of Final Fritz Mcnair MD electronically signed on 02/27/2023 10:40:33 AM with status of Final
== END ==
LOC: HO.CARD 08:15
PROVIDERS: PCP Family Medicine; Visit Provider Internal Medicine
DX: I25.10 Atherosclerotic heart disease of native coronary artery without angina pectoris (principal)
CPT/HCPCS: 93306

== ENCOUNTER → 2023-02-27 08:21 | Outpatient (BNV) | payer MEDICAID, SELFPAY | PROVIDERS: PCP Family Medicine; Visit Provider Internal Medicine | DX: I34.81 Nonrheumatic mitral (valve) annulus calcification (principal); I35.8 Other nonrheumatic aortic valve disorders | CPT/HCPCS: 93306 ==

== ENCOUNTER 2023-03-02 09:54 | Day surgery (SDC) | payer MEDICAID, SELFPAY ==
[2023-02-28 14:07] VITALS: BMI 28.9
--- NOTE | 2023-03-01 09:11 | HO.ANESPROP2 ---
Documented by User: Laurence Smith NP 03/01/23 09:15 HPI - Anesthesia Eval Consult details Narrative: 62yo F for LEEP,poss loop electric excision,poss loop electrical,cone and post endocervical curettage Cardiac optimized with nml ECHO results PMFSH Active Problems Active Problems: All Active Problems (Updated 02/26/23 @ 13:02 by Frtiz Mcnair MD) Preoperative cardiovascular examination (Acute) VIVIAN III (cervical intraepith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 (Acute) ASCUS with positive high risk HPV cervical (Acute) Chronic pain syndrome (Acute) Facet arthropathy, lumbar (Acute) Lumbosacral radiculopathy (Acute) Spondylosis of lumbar region without myelopathy or radiculopathy (Acute) Disc degeneration, lumbar (Acute) Atherosclerotic cardiovascular disease (Acute) Other and unspecified hyperlipidemia (Acute) Type 2 diabetes mellitus with unspecified complications (Acute) Essential hypertension (Acute) Past Medical History Medical History Other and unspecified hyperlipidemia Essential hypertension Type 2 diabetes mellitus with unspecified complications Atherosclerotic cardiovascular disease Family History Family History Father Diabetes Mother No problems noted. Surgical History Surgical History (Updated 03/02/23 @ 12:17 by Hina Vargas MD) H/O colonoscopy Hx of cardiac catheterization Social History Social History Patient Tobacco Use Status: Current everyday Tobacco user Tobacco use type: Cigarette Smoked in Last 30 Days: Yes Patient Interested in Nicotine Replacement: No Substance Use Frequency: Occasionally Are you DNR?: No Advance Directives: No Advance Directives Information Provided: Yes Nutrition Risks: No Nutritional Risk Meds Allergies Allergy/AdvReac Type Severity Reaction Status Date / Time aspirin Allergy Unknown Unknown Verified 03/02/23 11:06 Home Medications Medication Instructions Recorded Confirmed Last Taken Type albuterol sulfate 90 mcg/actuation 2 puff PO Q4H PRN 02/08/21 02/26/23 Unknown History aerosol inhaler (ProAir HFA) fluticasone propionate 110 1 puff PO BID 02/08/21 02/26/23 Unknown History mcg/actuation HFA aerosol inhaler (Flovent HFA) gabapentin 300 mg capsule 300 mg PO TID 02/08/21 02/26/23 Unknown History glipizide 5 mg tablet 5 mg PO 02/08/21 02/26/23 Unknown History hydrochlorothiazide 25 mg tablet 25 mg PO QAM 02/08/21 02/26/23 Unknown History hydroxyzine HCl 25 mg tablet 25 mg PO Q6H PRN anxiety 02/08/21 02/26/23 Unknown History lisinopril 40 mg tablet 40 mg PO BEDTIME 02/08/21 02/26/23 Unknown History melatonin 5 mg tablet 5 - 10 mg PO BEDTIME PRN insomnia 02/08/21 02/26/23 Unknown History multivitamin (One Daily 1 tab PO BEDTIME 02/08/21 02/26/23 Unknown History Multivitamin tablet) omeprazole 20 mg capsule,delayed 20 mg PO QAM 02/08/21 02/26/23 Unknown History release rosuvastatin 5 mg tablet 5 mg PO BEDTIME 02/08/21 02/26/23 Unknown History zolpidem 10 mg tablet 10 mg PO BEDTIME PRN insomnia 02/08/21 02/26/23 Unknown History methadone 40 mg soluble tablet 130 mg PO DAILY 01/30/23 02/26/23 Unknown History Exam Height,Weight and Vital Signs: Height 5 ft 2 in Weight 71.668 kg Pertinent Lab Results Pertinent Lab Results: Laboratory Tests 05/19/22 02/21/23 15:40 10:37 WBC 9.7 Hgb 13.7 Hct 39.5 Plt Count 189 Sodium 135 Potassium 4.7 Chloride 94 L Carbon Dioxide 30 H BUN 29 H Creatinine 0.97 Narrative Narrative: ECHO 02/2023 Conclusions: - The left ventricular systolic function is hyperdynamic. The visually estimated ejection fraction is >70%. - No obvious valvular pathology seen on this study. EKG 04/2022 Vent. Rate : 063 BPM Atrial Rate : 063 BPM P-R Int : 150 ms QRS Dur : 070 ms QT Int : 376 ms P-R-T Axes : 012 -06 000 degrees QTc Int : 384 ms Normal sinus rhythm Septal infarct (cited on or before 27-JUL-2003) Abnormal ECG When compared with ECG of 29-JUN-2010 06:51, Nonspecific T wave abnormality, worse in Inferior leads Nonspecific T wave abnormality now evident in Anterior leads Assessment and Plan Assessment Anesthesia Assessment: Chart Reviewed Documented by User: Hina Vargas MD 03/02/23 12:20 [facility] Active Problems Active Problems: All Active Problems (Updated 03/02/23 @ 11:19 by Hina Vargas MD) Preoperative cardiovascular examination (Acute) VIVIAN III (cervical intraepith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 (Acute) ASCUS with positive high risk HPV cervical (Acute) Chronic pain syndrome (Acute) Facet arthropathy, lumbar (Acute) Lumbosacral radiculopathy (Acute) Spondylosis of lumbar region without myelopathy or radiculopathy (Acute) Disc degeneration, lumbar (Acute) Atherosclerotic cardiovascular disease (Acute) Other and unspecified hyperlipidemia (Acute) Type 2 diabetes mellitus with unspecified complications (Acute) Essential hypertension (Acute) COPD- only using inhalers prn Past Medical History Medical History Other and unspecified hyperlipidemia Essential hypertension Type 2 diabetes mellitus with unspecified complications Atherosclerotic cardiovascular disease Family History Family History Father Diabetes Mother No problems noted. Family history of problems with anesthesia: No Surgical History Surgical History (Updated 03/02/23 @ 12:17 by Hina Vargas MD) H/O colonoscopy Hx of cardiac catheterization History of Problems with Anesthesia: No Social History Social History Patient Tobacco Use Status: Current everyday Tobacco user Tobacco use type: Cigarette Smoked in Last 30 Days: Yes Patient Interested in Nicotine Replacement: No Substance Use Frequency: Occasionally Are you DNR?: No Advance Directives: No Advance Directives Information Provided: Yes Nutrition Risks: No Nutritional Risk Meds Allergies Allergy/AdvReac Type Severity Reaction Status Date / Time aspirin Allergy Unknown Unknown Verified 03/02/23 11:06 Home Medications Medication Instructions Recorded Confirmed Last Taken Type albuterol sulfate 90 mcg/actuation 2 puff PO Q4H PRN 02/08/21 02/26/23 Unknown History aerosol inhaler (ProAir HFA) fluticasone propionate 110 1 puff PO BID 02/08/21 02/26/23 Unknown History mcg/actuation HFA aerosol inhaler (Flovent HFA) gabapentin 300 mg capsule 300 mg PO TID 02/08/21 02/26/23 Unknown History glipizide 5 mg tablet 5 mg PO 02/08/21 02/26/23 Unknown History hydrochlorothiazide 25 mg tablet 25 mg PO QAM 02/08/21 02/26/23 Unknown History hydroxyzine HCl 25 mg tablet 25 mg PO Q6H PRN anxiety 02/08/21 02/26/23 Unknown History lisinopril 40 mg tablet 40 mg PO BEDTIME 02/08/21 02/26/23 Unknown History melatonin 5 mg tablet 5 - 10 mg PO BEDTIME PRN insomnia 02/08/21 02/26/23 Unknown History multivitamin (One Daily 1 tab PO BEDTIME 02/08/21 02/26/23 Unknown History Multivitamin tablet) omeprazole 20 mg capsule,delayed 20 mg PO QAM 02/08/21 02/26/23 Unknown History release rosuvastatin 5 mg tablet 5 mg PO BEDTIME 02/08/21 02/26/23 Unknown History zolpidem 10 mg tablet 10 mg PO BEDTIME PRN insomnia 02/08/21 02/26/23 Unknown History methadone 40 mg soluble tablet 130 mg PO DAILY 01/30/23 02/26/23 Unknown History Exam Height,Weight and Vital Signs: Height 5 ft 2 in Weight 71.668 kg Vital Signs Temp Pulse Resp BP Pulse Ox O2 Del Method 03/02/23 11:16 65 18 03/02/23 10:34 97.9 F 67 18 158/96 H 96 Room Air Pertinent Lab Results Pertinent Lab Results: Laboratory Tests 05/19/22 02/21/23 15:40 10:37 WBC 9.7 Hgb 13.7 Hct 39.5 Plt Count 189 Sodium 135 Potassium 4.7 Chloride 94 L Carbon Dioxide 30 H BUN 29 H Creatinine 0.97 Lab Results 03/02/23 Range/Units 11:01 POC Glucose 221 H (60-115) mg/dL Airway Mallampati Class: III Loose/Missing/Broken Teeth: Yes (Loose tooth top front. Broken tooth top front.Some missing teeth top and bottom) Heart: RRR Lungs: CTAB s/p respiratory treatment. No wheezes Assessment and Plan Final Anesthetic Review Family History of Problems with Anesthesia: No History of Problems with Anesthesia: No NPO: Yes Assessment/Block/Sedation in SS: Assess/Block/Sedation-SS Documented by User: Valentina Sandoval MD 03/02/23 11:52 PMFSH Past Medical History Medical History Other and unspecified hyperlipidemia Essential hypertension Type 2 diabetes mellitus with unspecified complications Atherosclerotic cardiovascular disease Family History Family History Father Diabetes Mother No problems noted. Surgical History Surgical History (Updated 03/02/23 @ 12:17 by Hina Vargas MD) H/O colonoscopy Hx of cardiac catheterization Social History Social History Patient Tobacco Use Status: Current everyday Tobacco user Tobacco use type: Cigarette Smoked in Last 30 Days: Yes Patient Interested in Nicotine Replacement: No Substance Use Frequency: Occasionally Are you DNR?: No Advance Directives: No Advance Directives Information Provided: Yes Nutrition Risks: No Nutritional Risk Meds Allergies Allergy/AdvReac Type Severity Reaction Status Date / Time aspirin Allergy Unknown Unknown Verified 03/02/23 11:06 Home Medications Medication Instructions Recorded Confirmed Last Taken Type albuterol sulfate 90 mcg/actuation 2 puff PO Q4H PRN 02/08/21 02/26/23 Unknown History aerosol inhaler (ProAir HFA) fluticasone propionate 110 1 puff PO BID 02/08/21 02/26/23 Unknown History mcg/actuation HFA aerosol inhaler (Flovent HFA) gabapentin 300 mg capsule 300 mg PO TID 02/08/21 02/26/23 Unknown History glipizide 5 mg tablet 5 mg PO 02/08/21 02/26/23 Unknown History hydrochlorothiazide 25 mg tablet 25 mg PO QAM 02/08/21 02/26/23 Unknown History hydroxyzine HCl 25 mg tablet 25 mg PO Q6H PRN anxiety 02/08/21 02/26/23 Unknown History lisinopril 40 mg tablet 40 mg PO BEDTIME 02/08/21 02/26/23 Unknown History melatonin 5 mg tablet 5 - 10 mg PO BEDTIME PRN insomnia 02/08/21 02/26/23 Unknown History multivitamin (One Daily 1 tab PO BEDTIME 02/08/21 02/26/23 Unknown History Multivitamin tablet) omeprazole 20 mg capsule,delayed 20 mg PO QAM 02/08/21 02/26/23 Unknown History release rosuvastatin 5 mg tablet 5 mg PO BEDTIME 02/08/21 02/26/23 Unknown History zolpidem 10 mg tablet 10 mg PO BEDTIME PRN insomnia 02/08/21 02/26/23 Unknown History methadone 40 mg soluble tablet 130 mg PO DAILY 01/30/23 02/26/23 Unknown History Exam Airway Mallampati Class: II TM Dist: <=3cm Neck ROM: Limited Loose/Missing/Broken Teeth: Yes, Upper and Lower (very poor dentition, upper front loose tooth and multiple broken teeth. understands and accepts risk of tooth dislodgement , aspiration during LMA placement , removal or laryngoscopy or ETT placement and removal) Heart: rrr Lungs: cta Assessment and Plan Assessment Anesthesia Assessment: Anesthesia Plan Discussed Final Anesthetic Review ASA Class: III Final Preanesthetic Review: No Changes in Pt Med Stat, Meds/Allgs Chart Reviewed, Consent Obtained/Reviewed and Anes Risks/Benef Reviewed Patient Risk: Intermediate Procedure Risk: Low Anesthetic Plan Anesthetic Plan: GA Disposition: Standard PACU
[2023-03-02] VITALS (8 sets, daily range): BP systolic 113–158; BP diastolic 52–96; PULSE 65–90; RESP 18–20; TEMP 36.6–36.8; O2SAT 95–99; BMI 28.5
--- NOTE | 2023-03-02 10:16 | PC.NURSE ---
dr. moss aware that patient drank 6 oz. orange hatch 45 minutes ago. ok to proceed.
[2023-03-02] MEDS: Lactated Ringers 1,000 ML 100 ML IVCONT (10:55)
[2023-03-02 11:08] LABS: Glucose, Whole Blood 221 mg/dL (60-115)
[2023-03-02] MEDS: Albuterol Sulfate (0.083%) 2.5 MG/3 ML VIAL.NEB INHALE (11:15)
--- NOTE | 2023-03-02 11:47 | MHC.SHP ---
Pre-Procedural Eval Section A Date of Service: 03/02/23 Section B Chief Complaint: Carcinoma in situ of cervix, unspecified Allergies: Allergies Allergy/AdvReac Type Severity Reaction Status Date / Time aspirin Allergy Unknown Unknown Verified 03/02/23 11:06 Plan I have reviewed the history and physical and performed a pertinent physical examination on my patient. No changes have occurred unless specified. Time Spent With Patient Time: Total time managing care of this patient today ____ minutes.
--- NOTE | 2023-03-02 12:46 | P.OP_ITS ---
Operative Note Operative Note Date of Service: 03/02/23 Narrative: Pre op diagnosis: VIVIAN 3 with positive ECC Operation: Colposcopy, Loop electrical excision procedure cone, top hat endocervical excision, post cone ECC Postop diagnosis: the same Quantitative blood loss: 50 cc Surgeon: Bernardo Gaming MD, FACOG Basting Cleaner: None Pathology: Cervical cone, top-hat endo cervical excision, endo cervical curettage Complications: none Anesthesia: GLMA and Para cervical block Procedure: The patient was put in a dorsal lithotomy position, scrubbed and draped in the usual sterile fashion. A speculum was inserted inside the patient's vagina. The cervix is assessed using the colposcope with acetic acid , the lesions were seen, and at least 1 cm of the squamocolumnar junction was observed. 20 x 5 mm size loop was selected based upon the diameter of the lesion. Lugol solution was used to outline the lesions and area of the transformation zone order to be removed 10 cc of xylocaine with epinephrine were injected submucosally into the surface of the cervix (ectocervix) at the 3, 6, 9, and 12 o'clock positions. The electrosurgical generator is set at 40 arrington on blend 1. The loop is carefully passed simultaneously around and under the transformation zone, in order to ensure excising it making sure the lesion is at least 5 mm far from the specimen margins . The loop was allowed to glide through the cervix from one side to the other, allowing the cutting current to divide the tissue. Since ECC was positive endo cervical disease could be beyond the reach of the loop, additional tissue was excised from this area with a smaller-diameter loop , endo cervical top-hat excision was performed An endo cervical curettage is performed following completion of excision, and hemostasis is obtained with a Ball electrode or regular tip cautery. At the end, Monsel's solution was applied to the cone bed. The patient tolerated the procedure well and, all instruments were taken out of the patient vaginal cavity, and the patient was transferred to the PACU in stable condition.
--- NOTE | 2023-03-02 12:46 | PM.OP ---
Brief Operative Note Date of Service: 03/02/23 Pre-op diagnosis: VIVIAN 3 with positive ECC Post-op diagnosis: same Procedure: LEEP CONE with post CONE ECC Surgeon: Bernardo Gaming MD Anesthesia: GLMA and other (Paracervical block) Was an Counter Pocket Sewer used for this Procedure?: No Estimated blood loss (mL): 0 Pathology: other (Cervical cone, top-hat, Post cone ECC) Condition: stable Disposition: other (Home)
--- NOTE | 2023-03-02 13:20 | PM.EVENT ---
Event Note Date of Service: 03/02/23 Event Note: Patient received a call from Dr. Dunaway, anaesthesia, stating that patient coughed up purulent sputum after removing the LMA to, recommended antibiotics for possible bronchitis, Augmentin 875 mg p.o. bid for 7 days was sent to the pts pharmacy. . Instructions given to the patient to call or go to emergency room in case of persistent cough, temperature above 100.4, shortness of breath and schedule a follow-up appointment with her PCP within few days Time Spent With Patient Time: Total time managing care of this patient today ____ minutes.
== END 2023-03-02 14:30 | disposition home or self-care (01) ==
PROVIDERS: PCP Registered Nurse; Visit Provider Obstetrics & Gynecology
PROC: 0UBC7ZZ Excision of Cervix, Via Natural or Artificial Opening (ICD-10-PCS; CPT 57522; principal; 2023-03-02 12:00)
DX: D06.9 Carcinoma in situ of cervix, unspecified (principal); R09.3 Abnormal sputum; I10 Essential (primary) hypertension; I25.10 Atherosclerotic heart disease of native coronary artery without angina pectoris; E78.5 Hyperlipidemia, unspecified; E11.9 Type 2 diabetes mellitus without complications; Z79.84 Long term (current) use of oral hypoglycemic drugs; Z79.899 Other long term (current) drug therapy; Z79.51 Long term (current) use of inhaled steroids; Z88.8 Allergy status to other drugs, medicaments and biological substances; F17.210 Nicotine dependence, cigarettes, uncomplicated
CPT/HCPCS: 57461; 82947; 88305; 88307; J1885; J2405; J2704; J3010

== ENCOUNTER → 2023-03-02 09:54 | Outpatient (BNV) | payer MEDICAID, SELFPAY | PROVIDERS: PCP Registered Nurse; Visit Provider Obstetrics & Gynecology | DX: D06.9 Carcinoma in situ of cervix, unspecified (principal) | CPT/HCPCS: 57461; 99499 ==

== ENCOUNTER 2023-03-28 14:45 | Outpatient (AMB) | payer MEDICAID, SELFPAY ==
--- NOTE | 2023-03-28 15:05 | MHC.OFFVIS ---
Intake Intake Visit Reasons: post op Glost Kiln Placer: Glost Kiln Placer Present Allergies aspirin Allergy (Unknown, Verified 03/02/23 11:06) Unknown Is last menstrual period known: Yes Last menstrual period: 01/15/20 Post menopausal: No Patient : No Do you need a note to return to daycare/school/sports/work: Yes (for surgery on sunday) HPI HPI Comments History of Present Illness Details The patient is presenting for follow-up post LEEP cone. The patient has no complaints. The pathology showed the following: A. Cervix, conization: -High grade squamous intraepithelial lesion (moderate dysplasia, VIVIAN II), involving endocervical glands. -Ectocervical margin: Free of dysplasia. -Endocervical margin: Free of dysplasia, but very close. -Radial (deep) margin: Free of dysplasia. -Squamous and endocervical glandular mucosa with marked inflammation; biopsy site changes identified. B. Cervix, top hat, conization: -High grade squamous intraepithelial lesion (moderate-severe dysplasia, VIVIAN II-III), involving endocervical glands, present at one margin, the other margin is free of dysplasia. -Squamous and endocervical glandular mucosa with marked inflammation; biopsy site changes identified. C. Endocervix, curettage: Squamous and endocervical glandular epithelium; negative for dysplasia FORMERLY [facility], [facility]1983 Medical History Other and unspecified hyperlipidemia Essential hypertension Type 2 diabetes mellitus with unspecified complications Atherosclerotic cardiovascular disease Surgical History H/O colonoscopy Hx of cardiac catheterization Family History Father Diabetes Mother No problems noted. Social History Patient Tobacco Use Status: Current everyday Tobacco user Tobacco use type: Cigarette Female Reproductive History Menstrual Date of last menstrual period: 01/15/20 Total pregnancies: 2 Full term: 2 Review of Systems Card Reports as per HPI and Reports no additional complaints Resp Reports as per HPI and Reports no additional complaints GI Reports as per HPI and Reports no additional complaints Reports as per HPI Physical Exam Const General: cooperative, healthy appearing and comfortable Chest Chest palpation & inspection: normal inspection of the chest and normal palpation of entire chest wall Breast/axilla inspection: normal inspection of the breasts and normal inspection of the axillae Breast/axilla palpation: normal palpation of the breasts, normal palpation of the axillae and no axillary lymphadenopathy Resp Effort & Inspection: normal respiratory effort Auscultation: clear to auscultation bilaterally Percussion: percussion normal Cardio Palpation: normal PMI Rate: regular rate Rhythm: regular rhythm Heart sounds: no murmurs and no rubs Peripheral pulses: Peripheral pulses 2+ throughout GI Inspection: Yes normal to inspection Palpation (GI): Soft to palpation, nontender, no guarding, not rigid and No hepatosplenomegaly present Percussion: Yes normal to percussion Auscultation: normal bowel sounds Rectal Exam - Female: deferred Assessment & Plan Assessment & Plan (1) VIVIAN III (cervical intraepith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: Comment: Status post LEEP cone with positive margins Code(s): D06.9 - Carcinoma in situ of cervix, unspecified Plan: Discussed with the patient the results pathology, positive margins, the sensitivity, specificity, false-positive and false-negative rate were discussed with the patient Discussed with the patient that studies have consistently shown that patients with positive margins after an excisional procedure, compared with negative margins, are at significantly higher risk for residual or recurrent disease. Recurrence can occur years after treatment; Recommended repeat LEEP cone with post cone ECC. All the pros and cons and risks and benefits each were discussed with the patient and the patient decided to proceed with re-excision LEEP cone with post cone ECC Will proceed with LEEP cone was post cone ECC. Discussed with the patient the procedure, its benefits and risks including bleeding, infection, possible need for blood transfusion with all its risk ( HIV, syphilis, Hepatitis, anaphylaxis shock, others..), injury to bladder, rectum, possible need for hysterectomy, possible future negative impact on fertility including ( cervical stenosis, incompetence , increase risk for c section 2ndary to cervical scarring and failure of dilatation). Also discussed the patient options of anesthesia either paracervical block versus IV sedation/MAC, prefers to proceed with IV sedation/MAC. All questions answered, the patient verbalized understanding and signed the consent. Coding Level of Care Code Est Pt Level 3 (20964) Diagnoses VIVIAN III (cervical intraepith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 D06.9
== END 2023-03-28 15:37 | disposition home or self-care (01) ==
PROVIDERS: PCP Registered Nurse; Visit Provider Obstetrics & Gynecology
DX: D06.9 Carcinoma in situ of cervix, unspecified (principal)
CPT/HCPCS: 99213

== ENCOUNTER → 2023-03-28 14:45 | Outpatient (BNVA) | payer MEDICAID, SELFPAY | PROVIDERS: PCP Registered Nurse; Visit Provider Obstetrics & Gynecology | DX: D06.9 Carcinoma in situ of cervix, unspecified (principal) | CPT/HCPCS: 99212 ==

== ENCOUNTER 2023-04-12 10:22 | Outpatient (AMB) | payer MEDICAID, SELFPAY ==
--- NOTE | 2023-04-12 10:24 | MHC.OFFVIS ---
Intake Vital Signs 04/12/23 10:25 Height 5 ft 2 in Weight 162 lb 4.163 oz BMI 29.7 BP 130/70 Blood Pressure Location Lt brachial Position Sitting Pulse 69 Intake Visit Reasons: FU Intake Note: f/up pt its feeling fine Machine Applicator Cementer Required: Yes Machine Applicator Cementer Name: willem/mina Accompanied by: Employee Allergies aspirin Allergy (Unknown, Verified 03/02/23 11:06) Unknown Medication List - Last Reconciled 04/12/23 by Fritz Mcnair MD albuterol sulfate 90 mcg/actuation (ProAir HFA) 2 puffs PO Q4H PRN amoxicillin-pot clavulanate 875-125 mg 1 tab PO BID 7 days dulaglutide (Trulicity) mg subcut QWEEK fluticasone propionate 110 mcg/actuation (Flovent HFA) 1 puff PO BID gabapentin 300 mg PO TID glipizide 5 mg PO hydrochlorothiazide 25 mg PO QAM hydroxyzine HCl 25 mg PO Q6H PRN lisinopril 40 mg PO BEDTIME melatonin 5 - 10 mg PO BEDTIME PRN methadone 130 mg PO DAILY multivitamin (One Daily Multivitamin tablet) 1 tab PO BEDTIME omeprazole 20 mg PO QAM rosuvastatin 5 mg PO BEDTIME zolpidem 10 mg PO BEDTIME PRN HPI HPI Comments History of Present Illness Details Suzanne returns for follow-up. Recently seen in consultation regarding gynecologic procedure. She states that that has been done without any issues. Otherwise, generally gets seen intermittently. History of coronary disease. Myocardial infarction 1990s when she underwent cardiac catheterization but does not have any regular cardiology followups. Many comorbidities. Last time, she stated that she had no symptoms. However, today she states she does get occasional chest pains and when she takes nitro she feels better. Hence this could all be angina. History of substance abuse but nothing recently according to her. [facility] Medical History Other and unspecified hyperlipidemia Essential hypertension Type 2 diabetes mellitus with unspecified complications Atherosclerotic cardiovascular disease Surgical History H/O colonoscopy Hx of cardiac catheterization Family History Father Diabetes Mother No problems noted. Social History Patient Tobacco Use Status: Current everyday Tobacco user Tobacco use type: Cigarette Review of Systems Const Reports chills, Reports fatigue, Reports fever(s), Reports frequent falls, Reports weakness, Reports weight gain and Reports weight loss ENT Reports dizziness Card Reports chest pain, Reports leg edema, Reports lightheadedness, Reports palpitations, Reports dyspnea and Reports dyspnea on exertion Resp Reports cough, Reports dyspnea and Reports dyspnea on exertion GI Reports hematochezia Musc Reports abnormal gait, Reports muscle weakness, Reports numbness, Reports radiating pain into limb and Reports tingling Neuro Reports abnormal gait, Reports dizziness, Reports frequent falls, Reports numbness, Reports tingling and Reports weakness Endo Reports fatigue and Reports palpitations Physical Exam Vital Signs: Last Vital Signs Pulse 69 04/12/23 10:25 BP 130/70 04/12/23 10:25 BMI result Body Mass Index 29.7 Const General: comfortable and no acute distress Orientation/consciousness: patient oriented x3 HEENT Other: Unremarkable Head: Yes normal to inspection Neck Neck: Yes normal visual inspection Chest Chest palpation & inspection: normal inspection of the chest Resp Auscultation: clear to auscultation bilaterally Cardio Palpation: normal PMI Heart sounds: S1 normal heart sound present, S2 normal heart sound present, no gallops, no murmurs and no rubs GI Palpation (GI): Soft to palpation Back/Spine/Pelvis Other: unremarkable Skin General skin exam: no rashes or lesions noted Neuro General: patient oriented x3 Extrem General: Yes normal to inspection Psych Mental Status: mental status grossly normal Office Procedures EKG Details: EKG with sinus rhythm at 70/Min; cannot exclude old septal infarct; no significant ST-T changes and otherwise unremarkable. No significant change compared to previous EKGs. 22790-[id number], Complete Assessment & Plan Assessment & Plan (1) Atherosclerotic cardiovascular disease: Code(s): I25.10 - Atherosclerotic heart disease of [place] coronary artery without angina pectoris Plan Cardiac catheterization data reviewed from 1995. Mid LAD with 50% stenosis. Diagonal with 90% stenosis. Does not appear she underwent any PCI. Recent echocardiogram with hyperdynamic LVEF; wall motion abnormalities and otherwise unremarkable. Overall, many comorbidities, probable stable angina. We can get a pharmacological stress perfusion imaging study to assess further. Highly unlikely to exercise adequately on the treadmill. Discussed with patient using lofter. Orders: Orders CA lexiscan stress w tevin Today I20.9 - Angina pectoris, unspecified NM cardiolite stress test Today R07.2 - Precordial pain Medications: New nitroglycerin do not exceed 3 doses per episode 0.4 mg sublingual Q5M PRN 30 tabs 5RF chest pain R07.2 - Precordial pain Coding Level of Care Code Est Pt Level 3 (48708) Diagnoses Atherosclerotic cardiovascular disease I25.10 CPT Codes EKG - CPT: 55980-[id number], Complete ([id number])
[2023-04-12 10:25] VITALS: BP 130/70; PULSE 69; BMI 29.7
== END 2023-04-12 10:51 | disposition home or self-care (01) ==
PROVIDERS: PCP Family Medicine; Visit Provider Internal Medicine
DX: I25.10 Atherosclerotic heart disease of native coronary artery without angina pectoris (principal)
CPT/HCPCS: 93010; 99213

== ENCOUNTER → 2023-04-12 10:22 | Outpatient (BNVA) | payer MEDICAID, SELFPAY | PROVIDERS: PCP Family Medicine; Visit Provider Internal Medicine | DX: I25.10 Atherosclerotic heart disease of native coronary artery without angina pectoris (principal) | CPT/HCPCS: 93005; 99212 ==

== ENCOUNTER 2023-04-27 08:58 | Day surgery (SDC) | payer MEDICAID, SELFPAY ==
[2023-04-24 15:17] VITALS: BMI 35.5
--- NOTE | 2023-04-26 09:01 | HO.ANESPROP2 ---
Documented by User: Laurence Smith NP 04/26/23 09:05 HPI - Anesthesia Eval Consult details Narrative: 63yo F for Re-Excision loop electric excision procedure,cone,post cone endocervical curettage s/p same 02/2023 with GA-LMA 4 (anesthesia record notes large glob of yellow mucous coughed up by patient after pulling LMA and rec'd abx course to surgeon. No respiratory issues post-op.) Cardiac optimized with nml ECHO results prior to initial procedure Methadone daily Anesthesia Pre-Procedure Meds Is the patient on any of the following meds?: Dulaglutide (Trulicity) [facility] Active Problems Active Problems: All Active Problems (Updated 04/24/23 @ 15:08 by Michell Landis RN) Preoperative cardiovascular examination (Acute) VIVIAN III (cervical intraepith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 (Acute) ASCUS with positive high risk HPV cervical (Acute) Chronic pain syndrome (Acute) Facet arthropathy, lumbar (Acute) Lumbosacral radiculopathy (Acute) Spondylosis of lumbar region without myelopathy or radiculopathy (Acute) Disc degeneration, lumbar (Acute) Atherosclerotic cardiovascular disease (Acute) Other and unspecified hyperlipidemia (Acute) Type 2 diabetes mellitus with unspecified complications (Acute) Essential hypertension (Acute) Past Medical History Medical History (Updated 04/27/23 @ 09:39 by Brinda Donnelly RN) Asthma Elevated cholesterol GERD (gastroesophageal reflux disease) Substance abuse CAD (coronary artery disease) Myocardial infarction Other and unspecified hyperlipidemia Essential hypertension Type 2 diabetes mellitus with unspecified complications Atherosclerotic cardiovascular disease Family History Family History Father Diabetes Mother No problems noted. Family history of problems with anesthesia: No Surgical History Surgical History History of loop electrical excision procedure (LEEP) H/O colonoscopy Hx of cardiac catheterization History of Problems with Anesthesia: No Social History Social History Patient Tobacco Use Status: Current someday Tobacco user Tobacco use type: Cigarette Substance Use Type Other:: none for > 1yr Are you DNR?: No Advance Directives: No Advance Directives Information Provided: Yes Meds Allergies Allergy/AdvReac Type Severity Reaction Status Date / Time aspirin Allergy Unknown Unknown Verified 04/27/23 10:04 Home Medications Medication Instructions Recorded Confirmed Last Taken Type albuterol sulfate 90 mcg/actuation 2 puff PO Q4H PRN Shortness Of 02/08/21 04/27/23 Unknown History aerosol inhaler (ProAir HFA) Breath fluticasone propionate 110 1 puff PO BID 02/08/21 04/27/23 Unknown History mcg/actuation HFA aerosol inhaler (Flovent HFA) gabapentin 300 mg capsule 300 mg PO TID 02/08/21 04/27/23 Unknown History glipizide 5 mg tablet 5 mg PO BID 02/08/21 04/27/23 Unknown History hydrochlorothiazide 25 mg tablet 25 mg PO QAM 02/08/21 04/27/23 Unknown History hydroxyzine HCl 25 mg tablet 25 mg PO Q6H PRN anxiety 02/08/21 04/27/23 Unknown History lisinopril 40 mg tablet 40 mg PO BEDTIME 02/08/21 04/27/23 Unknown History melatonin 5 mg tablet 5 - 10 mg PO BEDTIME PRN insomnia 02/08/21 04/27/23 Unknown History multivitamin (One Daily 1 tab PO BEDTIME 02/08/21 04/27/23 Unknown History Multivitamin tablet) omeprazole 20 mg capsule,delayed 20 mg PO QAM 02/08/21 04/27/23 Unknown History release rosuvastatin 5 mg tablet 5 mg PO BEDTIME 02/08/21 04/27/23 Unknown History zolpidem 10 mg tablet 10 mg PO BEDTIME PRN insomnia 02/08/21 04/27/23 Unknown History methadone 40 mg soluble tablet 130 mg PO DAILY 01/30/23 04/27/23 04/27/23 09:30 History dulaglutide 0.75 mg/0.5 mL 0.75 mg subcut QWEEK 04/12/23 04/27/23 Unknown History subcutaneous pen injector (Trulicity) insulin glargine 100 unit/mL (3 15 unit subcut DAILY 04/27/23 04/27/23 Unknown History mL) subcutaneous pen (Lantus Solostar U-100 Insulin) Exam Height,Weight and Vital Signs: Height 5 ft 6 in Weight 99.79 kg Pertinent Lab Results Pertinent Lab Results: Laboratory Tests 05/19/22 02/21/23 15:40 10:37 WBC 9.7 Hgb 13.7 Hct 39.5 Plt Count 189 Sodium 135 Potassium 4.7 Chloride 94 L Carbon Dioxide 30 H BUN 29 H Creatinine 0.97 Narrative Narrative: ECHO 02/2023 Conclusions: - The left ventricular systolic function is hyperdynamic. The visually estimated ejection fraction is >70%. - No obvious valvular pathology seen on this study. EKG 04/2022 Vent. Rate : 063 BPM Atrial Rate : 063 BPM P-R Int : 150 ms QRS Dur : 070 ms QT Int : 376 ms P-R-T Axes : 012 -06 000 degrees QTc Int : 384 ms Normal sinus rhythm Septal infarct (cited on or before 27-JUL-2003) Abnormal ECG When compared with ECG of 29-JUN-2010 06:51, Nonspecific T wave abnormality, worse in Inferior leads Nonspecific T wave abnormality now evident in Anterior leads Airway Neck ROM: Limited Loose/Missing/Broken Teeth: Yes (Loose tooth top front. Broken tooth top front.Some missing teeth top and bottom), Upper and Lower (very poor dentition, upper front loose tooth and multiple broken teeth. understands and accepts risk of tooth dislodgement , aspiration during LMA placement , removal or laryngoscopy or ETT placement and removal) Assessment and Plan Assessment Anesthesia Assessment: Chart Reviewed Final Anesthetic Review Family History of Problems with Anesthesia: No History of Problems with Anesthesia: No Documented by User: Mykel Montes MD 04/27/23 11:29 HPI - Anesthesia Eval Anesthesia Pre-Procedure Meds If Yes to any meds - educate patient: Pt education - increased risk of aspiration PMFSH Past Medical History Medical History (Updated 04/27/23 @ 09:39 by Brinda Donnelly RN) Asthma Elevated cholesterol GERD (gastroesophageal reflux disease) Substance abuse CAD (coronary artery disease) Myocardial infarction Other and unspecified hyperlipidemia Essential hypertension Type 2 diabetes mellitus with unspecified complications Atherosclerotic cardiovascular disease Family History Family History Father Diabetes Mother No problems noted. Surgical History Surgical History History of loop electrical excision procedure (LEEP) H/O colonoscopy Hx of cardiac catheterization Social History Social History Patient Tobacco Use Status: Current someday Tobacco user Tobacco use type: Cigarette Substance Use Type Other:: none for > 1yr Are you DNR?: No Advance Directives: No Advance Directives Information Provided: Yes Meds Allergies Allergy/AdvReac Type Severity Reaction Status Date / Time aspirin Allergy Unknown Unknown Verified 04/27/23 10:04 Home Medications Medication Instructions Recorded Confirmed Last Taken Type albuterol sulfate 90 mcg/actuation 2 puff PO Q4H PRN Shortness Of 02/08/21 04/27/23 Unknown History aerosol inhaler (ProAir HFA) Breath fluticasone propionate 110 1 puff PO BID 02/08/21 04/27/23 Unknown History mcg/actuation HFA aerosol inhaler (Flovent HFA) gabapentin 300 mg capsule 300 mg PO TID 02/08/21 04/27/23 Unknown History glipizide 5 mg tablet 5 mg PO BID 02/08/21 04/27/23 Unknown History hydrochlorothiazide 25 mg tablet 25 mg PO QAM 02/08/21 04/27/23 Unknown History hydroxyzine HCl 25 mg tablet 25 mg PO Q6H PRN anxiety 02/08/21 04/27/23 Unknown History lisinopril 40 mg tablet 40 mg PO BEDTIME 02/08/21 04/27/23 Unknown History melatonin 5 mg tablet 5 - 10 mg PO BEDTIME PRN insomnia 02/08/21 04/27/23 Unknown History multivitamin (One Daily 1 tab PO BEDTIME 02/08/21 04/27/23 Unknown History Multivitamin tablet) omeprazole 20 mg capsule,delayed 20 mg PO QAM 02/08/21 04/27/23 Unknown History release rosuvastatin 5 mg tablet 5 mg PO BEDTIME 02/08/21 04/27/23 Unknown History zolpidem 10 mg tablet 10 mg PO BEDTIME PRN insomnia 02/08/21 04/27/23 Unknown History methadone 40 mg soluble tablet 130 mg PO DAILY 01/30/23 04/27/23 04/27/23 09:30 History dulaglutide 0.75 mg/0.5 mL 0.75 mg subcut QWEEK 04/12/23 04/27/23 Unknown History subcutaneous pen injector (Trulicity) insulin glargine 100 unit/mL (3 15 unit subcut DAILY 04/27/23 04/27/23 Unknown History mL) subcutaneous pen (Lantus Solostar U-100 Insulin) Exam Airway Mallampati Class: II TM Dist: <=3cm Heart: ok. CAD. see above Lungs: ok Assessment and Plan Assessment Anesthesia Assessment: Anesthesia Plan Discussed Final Anesthetic Review NPO: Yes ASA Class: III Final Preanesthetic Review: No Changes in Pt Med Stat, Meds/Allgs Chart Reviewed, Consent Obtained/Reviewed and Anes Risks/Benef Reviewed Patient Risk: Intermediate Procedure Risk: Low Anesthetic Plan Anesthetic Plan: GA and Agree w/ Assess. and Plan Disposition: Standard PACU
[2023-04-27 09:40] VITALS: BMI 28.5
[2023-04-27 09:54] VITALS: BP 159/92; PULSE 66; RESP 16; TEMP 36.4; O2SAT 95
[2023-04-27 10:03] LABS: Glucose, Whole Blood 247 mg/dL (60-115)
[2023-04-27] MEDS: Lactated Ringers 1,000 ML 100 ML IVCONT (10:05)
[2023-04-27] MEDS: Albuterol Sulfate (0.083%) 2.5 MG/3 ML VIAL.NEB INHALE (10:27)
--- NOTE | 2023-04-27 10:39 | MHC.SHP ---
Pre-Procedural Eval Section A - 24 Hr Update-Section A only Date of Service: 04/27/23 The patient is an INPATIENT: No Changes since office visit: No Cold of Flu in the past 2 weeks, No New Medical Problems, No Changes in Medication and No Patient answered all questions The patient has been examined within 24 hours of the surgical procedure. The History & Physical has been completed within 30 days and I have reviewed it.: Yes Section B - Complete if H&P > 30 days Chief Complaint: Carcinoma in situ of cervix, unspecified Allergies: Allergies Allergy/AdvReac Type Severity Reaction Status Date / Time aspirin Allergy Unknown Unknown Verified 04/27/23 10:04 Plan Diagnosis/Plan: Unchanged I have reviewed the history and physical and performed a pertinent physical examination on my patient. No changes have occurred unless specified. Time Spent With Patient Time: Total time managing care of this patient today ____ minutes.
--- NOTE | 2023-04-27 11:42 | P.BOP_ITS ---
Brief Operative Note Date of Service: 04/27/23 Pre-op diagnosis: VIVIAN 3 with positive endocervix margins on previous LEEP Post-op diagnosis: same Procedure: LEEP CONE with post CONE ECC Surgeon: Bernardo Gaming MD Anesthesia: GLMA and other (Paracervical block) Was an Court Recorder used for this Procedure?: No Estimated blood loss (mL): 0 Pathology: other (Cervical cone, top-hat, Post cone ECC) Condition: stable Disposition: other (Home)
--- NOTE | 2023-04-27 11:42 | W.PM.OPN ---
Operative Note Operative Note Date of Service: 04/27/23 Narrative: Pre op diagnosis: VIVIAN 3 with positive endocervical margins on previous LEEP Operation: Colposcopy, Loop electrical excision procedure cone, top hat endocervical excision, post cone ECC Postop diagnosis: the same Quantitative blood loss: 50 cc Surgeon: Bernardo Gaming MD, FACOG Hospital Superintendent: None Pathology: Cervical cone, top-hat endo cervical excision, endo cervical curettage Complications: none Anesthesia: GLMA and Para cervical block Procedure: The patient was put in a dorsal lithotomy position, scrubbed and draped in the usual sterile fashion. A speculum was inserted inside the patient's vagina. The cervix is assessed using the colposcope with acetic acid , the lesions were seen, and at least 1 cm of the squamocolumnar junction was observed. 20 x 5 mm size loop was selected based upon the diameter of the lesion. Lugol solution was used to outline the lesions and area of the transformation zone order to be removed 10 cc of xylocaine with epinephrine were injected submucosally into the surface of the cervix (ectocervix) at the 3, 6, 9, and 12 o'clock positions. The electrosurgical generator is set at 30 to 40 arrington on blend 1. The loop is carefully passed simultaneously around and under the transformation zone, in order to ensure excising it making sure the lesion is at least 5 mm far from the previous LEEP cone specimen margins . The loop was allowed to glide through the cervix from one side to the other, allowing the cutting current to divide the tissue. Since endocervical margins were positive on the previous LEEP specimen endo cervical disease could be beyond the reach of the loop, additional tissue was excised from this area with a smaller-diameter loop , endo cervical top-hat excision was performed An endo cervical curettage is performed following completion of excision, with difficulty since there was endocervical stenosis, minimal tissues was retrieved and hemostasis is obtained with a Ball electrode or regular tip cautery. At the end, Monsel's solution was applied to the cone bed. The patient tolerated the procedure well and, all instruments were taken out of the patient vaginal cavity, and the patient was transferred to the PACU in stable condition.
[2023-04-27 11:49] VITALS: BP 108/55; PULSE 79; RESP 18; TEMP 36.4; O2SAT 93
[2023-04-27 12:04] VITALS: BP 147/82; PULSE 78; RESP 16; TEMP 36.1; O2SAT 98
== END 2023-04-27 12:45 | disposition home or self-care (01) ==
PROVIDERS: PCP Registered Nurse; Visit Provider Obstetrics & Gynecology
PROC: 0UBC7ZZ Excision of Cervix, Via Natural or Artificial Opening (ICD-10-PCS; CPT 57522; principal; 2023-04-27 10:50)
DX: D06.9 Carcinoma in situ of cervix, unspecified (principal); E11.9 Type 2 diabetes mellitus without complications; I10 Essential (primary) hypertension; E78.5 Hyperlipidemia, unspecified; F17.210 Nicotine dependence, cigarettes, uncomplicated; Z79.02 Long term (current) use of antithrombotics/antiplatelets; Z79.85 Long-term (current) use of injectable non-insulin antidiabetic drugs; Z79.4 Long term (current) use of insulin
CPT/HCPCS: 57461; 82947; 88305; 88307; J1885; J2405; J2704; J3010

== ENCOUNTER → 2023-04-27 08:58 | Outpatient (BNV) | payer MEDICAID, SELFPAY | PROVIDERS: PCP Registered Nurse; Visit Provider Obstetrics & Gynecology | DX: D06.9 Carcinoma in situ of cervix, unspecified (principal) | CPT/HCPCS: 57461 ==

== ENCOUNTER 2023-05-08 07:30 | Outpatient (AMB) | payer MEDICAID, SELFPAY ==
[2023-05-08 07:33] VITALS: BP 144/86; BMI 28.2
--- NOTE | 2023-05-08 07:33 | MHC.OFFVIS ---
Intake Vital Signs 05/08/23 07:33 Height 5 ft 2 in Weight 154 lb 5.177 oz BMI 28.2 BP 144/86 H Intake Visit Reasons: post op Volunteer Services Coordinator Required: Yes Volunteer Services Coordinator Language: Buckshot Swage Operator Name: Mabel DUENAS Information Interpreted: non-clinical & clinical Accompanied by: Daughter Allergies aspirin Allergy (Unknown, Verified 05/08/23 07:36) Unknown Post menopausal: Yes HPI HPI Comments History of Present Illness Details The patient is presenting for follow-up post re-excision LEEP cone. The patient has no complaints. The pathology showed the following: A. Cervix, cone excision: Inflamed squamous and endocervical mucosa with reactive changes; changes consistent with prior procedure. B. Cervix, top hat, excision: Inflamed fibromuscular stroma; changes consistent with prior procedure. C. Endocervix, post cone curettage: Small fragments of benign squamous and endocervical epithelium; changes consistent with prior procedure Few weeks ago the patient had a LEEP cone for VIVIAN 3, the pathology of which showed the follow up A. Cervix, conization: -High grade squamous intraepithelial lesion (moderate dysplasia, VIVIAN II), involving endocervicalglands. -Ectocervical margin: Free of dysplasia. -Endocervical margin: Free of dysplasia, but very close. -Radial (deep) margin: Free of dysplasia. -Squamous and endocervical glandular mucosa with marked inflammation; biopsy site changes identified.B. Cervix, top hat, conization: -High grade squamous intraepithelial lesion (moderate-severe dysplasia, VIVIAN II-III), involvingendocervical glands, present at one margin, the other margin is free of dysplasia. -Squamous and endocervical glandular mucosa with marked inflammation; biopsy site changes identified.C. Endocervix, curettage: Squamous and endocervical glandular epithelium; negative for dysplasia After patient's counseling, decision was to go ahead with LEEP cone re-excision, which was done with no complication the pathology showed above it was negative. [facility] Medical History (Updated 05/08/23 @ 07:43 by Bernardo Gaming MD) Asthma Elevated cholesterol GERD (gastroesophageal reflux disease) Substance abuse CAD (coronary artery disease) Myocardial infarction Other and unspecified hyperlipidemia Essential hypertension Type 2 diabetes mellitus with unspecified complications Atherosclerotic cardiovascular disease Surgical History History of loop electrical excision procedure (LEEP) H/O colonoscopy Hx of cardiac catheterization Family History Father Diabetes Mother No problems noted. Social History Patient Tobacco Use Status: Current someday Tobacco user Tobacco use type: Cigarette Review of Systems Const All systems reviewed & are unremarkable except as noted in HPI and below Reports as per HPI and Reports no additional complaints GI Reports no additional complaints Reports no additional complaints Physical Exam Vital Signs: Last Vital Signs BP 144/86 H 05/08/23 07:33 BMI result Body Mass Index 28.2 Assessment & Plan Assessment & Plan (1) VIVIAN III (cervical intraepith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: Comment: Status post LEEP conex2 with negative margins on 2nd pathology Code(s): D06.9 - Carcinoma in situ of cervix, unspecified Plan: Discussed with the patient the procedure and the pathology of the LEEP, negative margins. Instructions given to the patient to schedule an HPV based screening in 6 months, if normal then co testing Q year x 3 , if wnl cotest q3 x 25 years check the results and treat accordingly. Instructions given the patient to schedule a six-month co testing appointment. All questions answered patient verbalized understanding. Coding Level of Care Code Est Pt Level 3 (21364) Diagnoses VIVIAN III (cervical intraepith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 D06.9
== END 2023-05-08 11:20 | disposition home or self-care (01) ==
PROVIDERS: PCP Registered Nurse; Visit Provider Obstetrics & Gynecology
DX: D06.9 Carcinoma in situ of cervix, unspecified (principal)
CPT/HCPCS: 99213

== ENCOUNTER → 2023-05-08 07:30 | Outpatient (BNVA) | payer MEDICAID, SELFPAY | PROVIDERS: PCP Registered Nurse; Visit Provider Obstetrics & Gynecology | DX: D06.9 Carcinoma in situ of cervix, unspecified (principal) | CPT/HCPCS: 99212 ==

== ENCOUNTER 2023-08-15 08:57 | Outpatient (REF) | payer MEDICAID, SELFPAY ==
--- NOTE | ~2023-08-15 | US_ITS ---
EXAMINATION: US THYROID CLINICAL INFORMATION: Multiple thyroid nodules for follow up evaluation. COMPARISON: Ultrasound soft tissue head/neck thyroid dated 05/16/2017. TECHNIQUE: Linear transducer grayscale and color Doppler examination with attention to the region of the thyroid. FINDINGS: SIZE: Measurements of the thyroid lobes and nodules are given in sagittal, anteroposterior and transverse dimensions respectively. Right Thyroid Lobe: 4.2 x 1.6 x 1.4 cm, volume 4.9 mL. Previously 4.7 x 1.3 x 1.5 cm, volume 4.9 mL. Parenchyma: The gland echotexture is homogeneous. Thyroid vascularity is normal. Left Thyroid Lobe: 4.5 x 2.1 x 2.2 cm, volume 10.9 mL. Previously 4.2 x 1.6 x 1.6 cm, volume 5.7 mL. Parenchyma: The gland echotexture is heterogeneous. Thyroid vascularity is normal. Isthmus: 0.5 cm in maximum AP dimension. Previously 0.3 cm. Estimated total number of nodules greater than or equal to 1 cm: 2. Agricultural Produce Sorter nodules are described as follows: 1. Location: Left mid. Size: 3.0 x 1.7 x 1.8 cm, volume 4.7 mL. Previously measured as 3 separate nodules. Nodule characteristics: Composition: Solid/almost completely solid (2). Echogenicity: Cannot be determined (1). Shape: Not taller than wide (0). Margins: Ill-defined (0). Echogenic Foci: None (0). ACR TI-RADS total points: 3 ACR TI-RADS category: 3 Significant change in size (>/= 20% in 2 dimensions and minimal increase of 2 mm or 50% or greater increase in volume): Not applicable as this was previously measured as 3 separate nodules. Change in features: Not applicable Change in ACR TI-RADS risk category: Not applicable 2. Location: Left inferior isthmus. Size: 1.9 x 1.0 x 1.5 cm, volume 1.5 mL. Previously: 0.7 x 0.5 x 0.6 cm, volume 0.1 mL. Nodule characteristics: Composition: Solid/almost completely solid (2). Echogenicity: Cannot be determined (1). Shape: Not taller than wide (0). Margins: Smooth (0). Echogenic Foci: None (0). ACR TI-RADS total points: 3 ACR TI-RADS category: 3 Significant change in size (>/= 20% in 2 dimensions and minimal increase of 2 mm or 50% or greater increase in volume): Yes Change in features: No Change in ACR TI-RADS risk category: No 3. Location: Right inferior. Size: 0.6 x 0.5 x 0.5 cm, volume 0.07 mL. Previously: 0.7 x 0.5 x 0.5 cm, volume 0.03 mL. Nodule characteristics: Composition: Solid (2). Echogenicity: Hyperechoic (1). Shape: Not taller than wide (0). Margins: Smooth (0). Echogenic Foci: Macrocalcifications (1). ACR TI-RADS total points: 4 ACR TI-RADS category: 4 Significant change in size (>/= 20% in 2 dimensions and minimal increase of 2 mm or 50% or greater increase in volume): No Change in features: No Change in ACR TI-RADS risk category: No 4. Location: Right mid. Size: 0.5 x 0.3 x 0.4 cm, volume 0.04 mL. Previously: Not documented on the prior study. Nodule characteristics: Composition: Solid (2). Echogenicity: Isoechoic (1). Shape: Not taller than wide (0). Margins: Ill-defined (0). Echogenic Foci: None (0). ACR TI-RADS total points: 3 ACR TI-RADS category: 3 NODES: No lymphadenopathy is seen in the tissue surrounding the thyroid gland. US/US thyroid IMPRESSION: 1. Left mid 3.0 cm TR 3 thyroid nodule. Previously measured as 3 separate nodules. Fine-needle aspiration recommended. 2. Left inferior isthmus 1.9 cm TR 3 thyroid nodule has substantially increased in size. Fine needle aspiration recommended. This study was presented Sunday September 03, 2023 for interpretation. PSA staff will provide results to referring provider at this time. ACR TI-RADS RECOMMENDATION REFERENCE: Ultrasound-guided fine-needle aspiration, follow up ultrasound, no further followup. * TR1 (0 point) and TR2 (2 points): No FNA or followup * TR3 (3 points): FNA if more than or equal to 2.5 cm in maximum dimension, follow up ultrasound in 1, 3 and 5 years if 1.5 to 2.4 cm in maximum dimension. * TR4 (4-6 points): FNA if more than or equal to 1.5 cm in maximum dimension, follow up ultrasound in 1, 2, 3 and 5 years if 1 to 1.4 cm in maximum dimension. * TR5 (more than or equal to 7 points): FNA if more than or equal to 1 cm in maximum dimension, follow up ultrasound every year for 5 years if 0.5 to 0.9 cm in maximum dimension. * TR3, TR4 or TR5 nodules that are below the size threshold for follow up receive no followup.
--- NOTE | ~2023-08-15 | US_ITS ---
EXAMINATION: US EXTRACRANIAL CAROTID DUPLEX, BILATERAL CLINICAL INFORMATION: Syncope COMPARISON: None available. TECHNIQUE: Real-time ultrasound and Doppler techniques (integrating B-mode 2-D vascular images, Doppler spectral analysis and color-flow Doppler imaging) were utilized to interrogate the extracranial carotid arteries, the vertebral arteries and proximal subclavian arteries bilaterally. The degree of stenosis is determined by criteria similar to NASCET. FINDINGS: Right Side: 1. There is mild atherosclerotic plaque seen in the bifurcation/proximal ICA region. 2. The common carotid artery PSV proximally is 87 cm/s and distally 50 cm/s. 3. The proximal internal carotid artery velocities are 78 cm/s systolic and 54 cm/s diastolic. 4. The proximal external carotid artery PSV is 39 cm/s. 5. The vertebral artery shows antegrade flow. 6. The subclavian artery waveforms are normal. Left Side: 1. There is mild atherosclerotic plaque seen in the bifurcation/proximal ICA region. 2. The common carotid artery PSV proximally is 78 cm/s and distally 54 cm/s. 3. The proximal internal carotid artery velocities are 47 cm/s systolic and 15 cm/s diastolic. 4. The proximal external carotid artery PSV is 39 cm/s. 5. The vertebral artery shows antegrade flow. 6. The subclavian artery waveforms are normal. US/US carotid duplex BI IMPRESSION: 1. RIGHT: Minimal, non-hemodynamically significant stenosis of the proximal right internal carotid artery corresponding to a 0-49% stenosis by velocity criteria. 2. LEFT: Minimal, non-hemodynamically significant stenosis of the proximal left internal carotid artery corresponding to a 0-49% stenosis by velocity criteria.
--- NOTE | ~2023-08-15 | US_ITS ---
EXAMINATION: US ABDOMEN COMPLETE CLINICAL INFORMATION: History of hepatitis C with fibrosis for follow up evaluation. COMPARISON: Ultrasound abdomen 04/16/2019. Ultrasound abdomen complete with elastography 08/01/2018. CT abdomen and pelvis 11/27/2014. TECHNIQUE: Real-time imaging of the abdominal viscera. Limited visualization due to bowel gas. FINDINGS: PANCREAS: Limited visualization of pancreatic tail and head. Imaged portion of pancreatic body is unremarkable. ABDOMINAL AORTA: Limited visualization. Imaged portions unremarkable. INFERIOR VENA CAVA: Visualized portions are normal. LIVER: Increased hepatic parenchymal heterogeneity and echogenicity could be associated with hepatocellular disease/hepatic steatosis and substantially limits visualization. Correlation with liver function tests and clinical exam recommended to determine further management. Moderate intrahepatic biliary ductal dilatation. Limited visualization. GALLBLADDER: No gallbladder wall thickening. Gallstones measuring up to 2.2 cm. COMMON BILE DUCT: Dilated, increased in caliber measuring 1.1 cm in diameter. RIGHT KIDNEY: No hydronephrosis. 6 mm right renal lower pole calculus. Limited visualization.The kidney measures 11.3 cm in maximum dimension. LEFT KIDNEY: No hydronephrosis. No renal calculi. Limited visualization. The kidney measures 11.4 cm in maximum dimension. SPLEEN: The spleen measures 11.6 cm in maximum dimension. FREE FLUID: None. US/US abdomen complete IMPRESSION: 1. Cholelithiasis. Intrahepatic and extrahepatic biliary ductal dilatation as detailed above. Correlation with clinical exam and possible additional evaluations and MR/MRCP recommended. 2. Increased hepatic parenchymal heterogeneity and echogenicity could be associated with hepatocellular disease/hepatic steatosis and substantially limits visualization. Correlation with liver function tests and clinical exam recommended to determine further management. 3. No hydronephrosis. 6 mm right renal lower pole calculus.
== END 2023-08-15 08:58 | disposition home or self-care (01) ==
LOC: HO.US 08:57
PROVIDERS: PCP Family Medicine; Visit Provider Family Medicine
DX: E04.2 Nontoxic multinodular goiter (principal); K74.00 Hepatic fibrosis, unspecified
CPT/HCPCS: 76536; 76700; 93880

== ENCOUNTER 2023-08-29 08:53 | Outpatient (REF) | payer MEDICAID, SELFPAY ==
[2023-08-29 12:17] LABS: Alanine Aminotransferase 20 U/L (0-31); Albumin Level 3.8 g/dL (3.5-5.0); Alkaline Phosphatase 116 U/L (39-117); Anion Gap 11 (12-20); Aspartate Amino Transferase 18 U/L (5-31); Bilirubin Direct 0.1 mg/dL (0.0-0.5); Bilirubin Total 0.3 mg/dL (0.0-1.0); Blood Urea Nitrogen 18 mg/dL (9-16); Calcium 9.6 mg/dL (8.4-10.2); Carbon Dioxide 33 mmol/L (22-29); Chloride 96 mmol/L (96-108); Cholesterol 141 mg/dL (<200); Estimated Glomerular Filt Rate > 60; Free T4 (Free Thyroxine) 0.85 ng/dL (0.71-1.85); Glucose Random 306 mg/dL (60-115); HDL Cholesterol 32 mg/dL (>40); LDL Cholesterol Calculated 59 mg/dL (<100); Potassium 4.2 mmol/L (3.3-5.1); Sodium 136 mmol/L (135-145); Total Protein 8.2 g/dL (6.5-8.0); Triglycerides 250 mg/dL (<150)
[2023-08-29 12:34] LABS: HBS Num1 20.35 mIU/mL (0-7.99); HBsAGNum1 0.23 S/CO (0.00-0.99); HIV AB/AG Nonreactive (Nonreactive); HIV Num 1 0.06 S/CO (0.00-0.99); Hepatitis B Surface Antigen Negative (Negative); ~Hepatitis B Surface Antibody REACTIVE (Nonreactive); ~Hepatitis C Antibody Reactive (Nonreactive)
[2023-08-30 14:33] LABS: HCV Log PCR <1.18 NOT DETECTED Log IU/mL (NOT DETECTED); HepC Viral Load <15 NOT DETECTED IU/mL (NOT DETECTED)
[2023-08-31 13:13] LABS: RPR Rapid Plasma Reagin NON-REACTIVE (NON-REACTIVE)
[2023-08-31 13:19] LABS: Alpha Fetoprotein 4.3 ng/mL
== END 2023-08-29 08:54 | disposition home or self-care (01) ==
LOC: HO.HHCL 08:53
PROVIDERS: Visit Provider Family Medicine
DX: Z00.00 Encounter for general adult medical examination without abnormal findings (principal); R42 Dizziness and giddiness; F17.200 Nicotine dependence, unspecified, uncomplicated; K74.00 Hepatic fibrosis, unspecified; G89.29 Other chronic pain; M54.41 Lumbago with sciatica, right side; M54.42 Lumbago with sciatica, left side; E04.2 Nontoxic multinodular goiter; I72.8 Aneurysm of other specified arteries; F41.1 Generalized anxiety disorder; E78.49 Other hyperlipidemia; I10 Essential (primary) hypertension; Z79.4 Long term (current) use of insulin; E11.9 Type 2 diabetes mellitus without complications
CPT/HCPCS: 36415; 80048; 80061; 80076; 82105; 84439; 86592; 86706; 86803; 87340; 87389; 87522

== ENCOUNTER 2023-08-29 09:08 | Outpatient (REF) | payer MEDICAID, SELFPAY ==
--- NOTE | ~2023-08-29 | MM_ITS ---
EXAMINATION: MM SCREENING DIGITAL BREAST TOMOSYNTHESIS, BILATERAL CLINICAL INFORMATION: Screening. Asymptomatic. COMPARISON: Mammography: This study is compared with prior exams dating back to 2016. TECHNIQUE: Digital breast tomosynthesis is performed in both the craniocaudal and mediolateral oblique views along with computer-aided detection (CAD). Synthesized 2D images are generated from the tomosynthesis. FINDINGS: The breasts are almost entirely fatty (ACR BI-RADS breast composition Category a). There are no significant masses, abnormal calcifications, or other abnormalities. MM/MM tomosynthesis screening BI IMPRESSION: No mammographic evidence of malignancy. ASSESSMENT: BI-RADS BI-RADS 1 - Negative RECOMMENDATION: Routine annual mammography screening. 1 year F/U This examination should not preclude the clinical evaluation of a suspicious palpable abnormality. This patient's information was entered into a reminder system with a target due date for their next mammogram.
== END 2023-08-29 09:09 | disposition home or self-care (01) ==
LOC: HO.MAMMO 09:08
PROVIDERS: PCP Family Medicine; Visit Provider Family Medicine
DX: Z12.31 Encounter for screening mammogram for malignant neoplasm of breast (principal)
CPT/HCPCS: 36415; 77063; 77067; 80048; 80061; 80076; 82105; 84439; 86592; 86706; 86803; 87340; 87389; 87522

== ENCOUNTER → 2023-08-29 09:15 | Outpatient (BNV) | payer MEDICAID, SELFPAY | PROVIDERS: PCP Family Medicine; Visit Provider Radiology Diagnostic Radiology | DX: Z12.31 Encounter for screening mammogram for malignant neoplasm of breast (principal) | CPT/HCPCS: 77063; 77067 ==

== ENCOUNTER 2023-10-12 10:39 | Outpatient (RCR) | payer MEDICAID, SELFPAY | END 2023-11-12 08:21 | disposition home or self-care (01) | LOC: HO.PT 10:39 | PROVIDERS: PCP Family Medicine; Visit Provider Family Medicine | DX: M54.42 Lumbago with sciatica, left side (principal); M54.41 Lumbago with sciatica, right side | CPT/HCPCS: 97110; 97162; 97535 ==

== ENCOUNTER 2024-01-07 09:58 | Outpatient (AMB) | payer MEDICAID, SELFPAY ==
[2024-01-07 10:43] VITALS: BMI 28.2
--- NOTE | 2024-01-07 10:43 | MHC.OFFVIS ---
Vital Signs 01/07/24 10:43 Height 5 ft 2 in Weight 154 lb 5.177 oz BMI 28.2 Intake Visit Reasons: cotest Merg[employer] Acquis[employer] Banker Required: Yes Merg[employer] Acquisitions Banker Language: Bench Scientist Services: Merg[employer] Acquisitions Banker Present (in person) M[employer] Acquis[employer] Banker Name: Mabel DUENAS Information Interpreted: non-clinical & clinical Tire Technician: Tire Technician Present (Mabel DUENAS) Allergies aspirin Allergy (Unknown, Verified 01/07/24 10:44) Unknown Post menopausal: Yes HPI Comments Details: Presenting for six-month HPV based co testing. The patient had ascus HPV positive in 02/08 this was followed by colpo biopsy which showed VIVIAN 3, had a LEEP cone with post cone ECC in 03/10 with positive margin any re-excision LEEP in 05/12 with negative pathology. The patient is doing well with no complaints [facility] Medical History Asthma Elevated cholesterol GERD (gastroesophageal reflux disease) Substance abuse CAD (coronary artery disease) Myocardial infarction Other and unspecified hyperlipidemia Essential hypertension Type 2 diabetes mellitus with unspecified complications Atherosclerotic cardiovascular disease Surgical History History of loop electrical excision procedure (LEEP) H/O colonoscopy Hx of cardiac catheterization Family History Father Diabetes Mother No problems noted. Social History Patient Tobacco Use Status: Current someday Tobacco user Tobacco use type: Cigarette Review of Systems Const All systems reviewed & are unremarkable except as noted in HPI and below Physical Exam Vital Signs: BMI result Body Mass Index 28.2 General: Yes no CVA tenderness External Female Exam: normal external appearance and normal appearance of the urethra Speculum Exam - Vagina: normal appearance of the vagina, normal palpation, no lesions and no masses Speculum Exam - Cervix: normal appearance of the cervix, normal palpation, no lesions, no masses and nontender Bimanual exam- vagina & uterus: normal bimanual exam, normal palpation, uterine size normal, normal palpation, uterine shape normal, No Cervical tenderness present and non-tender Bimanual Exam- Adnexa, other: normal adnexae Back/Spine/Pelvis Back: no CVA tenderness Assessment & Plan Assessment & Plan (1) VIVIAN III (cervical intraepith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: Comment: Status post LEEP conex2 with negative margins on 2nd pathology Code(s): D06.9 - Carcinoma in situ of cervix, unspecified Category: Medical Plan: Co testing done. Instructions given the patient is schedule co testing in 1 year. All questions answered, the patient verbalized understanding. Coding Level of Care Code Est Pt Level 3 (67676) Diagnoses VIVIAN III (cervical intraepith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 D06.9
== END 2024-01-07 10:56 | disposition home or self-care (01) ==
LOC: HO.HWS 09:58
PROVIDERS: PCP Family Medicine; Visit Provider Obstetrics & Gynecology
DX: D06.9 Carcinoma in situ of cervix, unspecified (principal)
CPT/HCPCS: 99213

== ENCOUNTER 2024-01-07 09:58 | Outpatient (REF) | payer MEDICAID, SELFPAY ==
[2024-01-09 14:28] LABS: HPV mRNA E6/E7 Not Detected (Not Detected)
== END 2024-01-07 09:59 | disposition home or self-care (01) ==
LOC: HO.LNP 09:58
PROVIDERS: PCP Family Medicine; Visit Provider Obstetrics & Gynecology
DX: D06.9 Carcinoma in situ of cervix, unspecified (principal)
CPT/HCPCS: 87624; 88175; 99212

== ENCOUNTER 2024-06-18 11:00 | Outpatient (REF) | payer MEDICAID, SELFPAY ==
--- OUTSIDE RECORDS SUMMARY | 2024-06-18 13:18 | XMS_ITS | Encounter Summary ---
Author Organization [employer] Address [address] [facility] [facility] [address] [place] [address] Care Team Providers Care Is Support Analyst Name Role Phone Zuleima Urbina DO Primary Care Provider Reason for Visit * Reason Onset Date Comments Appointment Request 09/18/2022 Appointment 09/18/2022 T/C to PT to let him know is appt 11/28/2022 at 3:15pm. To [facility]. Encounter Details Date Type Department Care Team ([facility] st Contact Info) Description 09/18/2022 Telephone [facility] [address] [place] [address] Zuleima Urbina DO [address] [place] [address] Appointment Request; Appointment (T/C to PT to let him know is appt 11/28/2022 at 3:15pm. To [facility] Social History Tobacco Use Types Packs/Day Years Used Date Smoking Tobacco: Some Days Cigarettes Smokeless Tobacco: Never Alcohol Use Standard Drinks/Week Comments Never 0 (1 standard drink = 0.6 oz pur e alcohol) Depression Answer Date Recorded Patient Health Questionnaire-9 Score 1 06/13/2022 Depression Answer Date Recorded Patient Health Questionnaire-2 Score 1 06/13/2022 Comments Unknown Sex and Gender Information Value Date Recorded Sex Assigned at Female 01/16/2022 10:14 AM EDT Legal Sex Female 10:14 AM EDT Gender Identity Female 01/16/2022 10:14 AM EDT Sexual Orientation Straight 01/16/2022 10 :14 AM EDT COVID-19 Exposure Response Date Recorded In the last 10 days, have yo u been in contact with someone who was confirmed or suspected to have Coronavirus/COVID-19? No / Unsure 09/18/2022 9:00 AM EDT documented as of this encounter Miscellaneous Notes * Telephone Encounter - Fabio Corbin MA - 09/18/2022 2:21 PM EDT T/C tp [facility] to schedule appt for PT. The appt is 11/28/2022 at 3:15pm. T/C to PT to let her kno the appt day and PT agreed to be seen 11/28/2022 at 3:15pm . * Telephone Encounter - Yun Dewitt - 09/18/2022 8:38 AM EDT Please discard message above, pt gave a call back to schedule appt for today (09/18/2022). * Telephone Encounter - Yun Dewitt - 09/18/2022 8:25 AM EDT Tc from pt requesting to r/s appt on 09/18/2022 for follow up for rv dm. Please contact pt at [phone] Sri Lankan Speaker documented in this encounter Plan of Treatment Upcoming Encounters Date Type Department Care Team (Late st Contact Info) Description 07/22/2024 9:00 AM EDT Medication Management [facility] [address], [place] [phone] Jessica Mckeon, PharmD [address] [place] [address] documented as of this encounter Visit Diagnoses Not on filedocumented in this encounter Additional Health Concerns Assessment Noted Time PHQ-9 Depression Total Score: 1 06/14/19 23 10:18 AM EDT documented as of this encounter Care Teams Is Support Analyst Relationship Specialty Start Date End Date Zuleima Urbina DO [address] [place] [id number] PCP - General Family Medicine 11/25/20 documented as of this encounter
--- OUTSIDE RECORDS SUMMARY | 2024-06-18 13:18 | XMS_ITS | Encounter Summary ---
Author Organization [employer] Address [address] [facility] [address] [place] [address] Care Team Providers Care Student Liaison Officer Name Role Phone Zuleima Urbina DO Primary Care Provider [phone] Reason for Visit * Reason Onset Date Comments Nurse Triage 02/16/2023 Encounter Details Date Type Department Care Team (Late st Contact Info) Description 02/16/[address] [facility] [address] [place] [address] Zuleima Urbina DO [address] [place] [address] Nurse Triage Social History Tobacco Use Types Packs/Day Years Used Date Smoking Tobacco: Some Days Cigarettes Smokeless Tobacco: Never Alcohol Use Standard Drinks/Week Comments Never 0 (1 standard drink = 0.6 oz pur e alcohol) Depression Answer Date Recorded Patient Health Questionnaire-9 Score 1 06/13/2022 Housing Stability Answer Date Recorded What is your housing situation today? I have chelsea lopes 01/01/[address] you li ve. Do you have problems with any of the following? None of the above 01/01/2023 Food Insecurity Answer Date Recorded Within the past 12 months, y ou worried that your food would run out before you got money to buy more: Never True 01/01/2023 Within the past 12 months,th e food you bought just didn't last and you didn't have enough money to get more: Never True Transportation Answer Date Recorded In the past 12 months, has l ack of transportation kept you from medical appts, meetings, work or from getting things needed for daily living? No 01/01/2023 Utilities Answer Date Recorded In the past 12 months, has t he electric, [employer], [employer] or water [employer] threatened to shut off services in your home? No 01/01/2023 Depression Answer Date Recorded Patient Health Questionnaire-2 Score 1 06/13/2022 Comments Unknown Sex and Gender Information Value Date Recorded Sex Assigned at Female 01/16/2022 10:14 AM EDT Legal Sex Female 10:14 AM EDT Gender Identity Female 01/16/2022 10:14 AM EDT Sexual Orientation Straight 01/16/2022 10 :14 AM EDT documented as of this encounter Miscellaneous Notes * Telephone Encounter - Kayla Khan RN - 02/16/2023 10:57 AM EST Call to Suzanne Campbell, reports this morning was 300mg/dL fasting this AM. This was prior to taking glipizide or injecting insulin. Per pt was under impression that PCP was going to add Trulicity. Reivewed visit note from 01/24/23 plan for DM A1c uncontrolled, slightly improved from LV -inc lantus to 15 units daily -cont glipizide BID w/ breakfast and dinner -encouraged lifestyle changes -cont regular FS monitoring, will send rx for CGM -re-referred to [facility] pharmacist for eval and med recommendations Pt was not aware that Lantus increased to 15 units from 10. Pt only administered 10 as [employer]HE[employer] leaves pen set up for pt. Pt will inform [employer]. Pt denies any sx of hyperglycemia KURTZ, confusion, dry mouth or increased urination. Pt advised to start new dosing of lnatus and call back if BS continues >300mg on Sunday. Pt has Pre-op booked for Sunday as well. Protocol Used: Diabetes - High Blood Sugar (Adult) Protocol-Based Disposition: Discuss with PCP and Callback by Nurse within 1 Hour Video visit offer not recorded Positive Triage Question: * Blood glucose > 300 mg/dL (16.7 mmol/L) AND two or more times in a row * All higher-acuity triage questions were negative Care Advice Discussed: * High Blood Sugar (Hyperglycemia) * Continue Insulin * Diabetes Pills * Measure and Record Your Blood Glucose * Daily Blood Glucose Goals * Reasons To Call Back - Blood glucose over 300 mg/dL (16.7 mmol/L), two or more times in a row. - Urine ketones become moderate or large (or more than 1+); if you check blood ketones, blood ketone test is over 1.4 mmol/L - Vomiting lasting over 4 hours or unable to drink any fluids - Rapid breathing occurs - You become worse * Telephone Encounter - Magaly Lubin - 02/16/2023 10:52 AM EST Symptom: High Blood Sugar - Caller Reports Outcome: Talk to a nurse or provider within 15 minutes Reason: Known blood sugar above 300 The caller accepted this outcome [employer] SPEAKER PCP DR. Urbina documented in this encounter Plan of Treatment Upcoming Encounters Date Type Department Care Team (Late st Contact Info) Description 07/22/2024 9:00 AM EDT Medication Management [facility] [address] [place] [address] Jessica Mckeon, PharmD [address] [place] [address] documented as of this encounter Visit Diagnoses Not on filedocumented in this encounter Additional Health Concerns Assessment Noted Time PHQ-9 Depression Total Score: 1 06/14/19 23 10:18 AM EDT documented as of this encounter Care Teams Student Liaison Officer Relationship Specialty Start Date End Date Zuleima Urbina DO [address] [place] [address] PCP - General Family Medicine 11/25/20 documented as of this encounter
--- OUTSIDE RECORDS SUMMARY | 2024-06-18 13:18 | XMS_ITS | Clinical Summary ---
Author Organization [employer] Address [address] [place] [address] [address] [place] [address] Care Team Providers Care Senior Animal Trainer Name Role Phone Zuleima Urbina DO Primary Care Provider Allergies Active Allergy Reactions Criticality Noted Date Comments Aspirin 04/27/2023 Other Reaction(s): Unknown Medications nicotine (Nicoderm, Step 1) 21 MG/24HR patch Place 1 patch on the skin 1 (one) time each day. Remove patch at bedtime 02/17/20 20 Active nitroglycerin (Nitrostat) 0.[address] 1 tablet under the tongue. Place 1 tablet by sublingual route at the 1st sign of attack, may repeat every 5 mons x 3 doses, call 911 if no relief 08/07/19 21 Active dicyclomine (Bentyl) 20 MG tablet Take 20 mg by mouth if needed in the morning, at noon, in the evening, and at bedtime (for abdominal discomfort). 11/10/19 22 Active hydrOXYzine HCl (Atarax) 25 MG tablet Take 25 mg by mouth every 6 (six) hours if needed for anxiety. Active Naloxone HCl (NARCAN NA) Administer 4 mg into affected nostril(s) if needed. [place] 0.1 ml by intranasal route in 1 nostril. May repeat dose every 2-3 minutes as needed alternating nostrils with each dose 11/11/19 21 Active triamcinolone (Kenalog) 0.1 % creamIndications:R yue Apply topically 2 times daily. Apply by topical route 2 times a day a thin layer to the affected area(s) 80 g 06/03/19 23 Active Blood Glucose Monitoring Suppl (FreeStyle glucose monitoring) kit 1 each 2 times daily. Check by finger stick route 2 times everyday 1 each 06/14/19 23 Active glucose blood (FREESTYLE LITE) test strip 1 each by Other route every 12 (twelve) hours. Use 1 by skin route 2 times every day 100 each 3 06/14/19 23 Active clonazePAM (KlonoPIN) 0.5 MG tablet Take 0.5 mg by mouth if needed in the morning and at bedtime. 05/15/19 23 Active escitalopram (Lexapro) 10 MG tablet TAKE 1 AND 1/2 TABLETS BY MOUTH IN THE MORNING 05/11/19 23 Active zolpidem (Ambien) 10 MG tablet Take 10 mg by mouth. 01/14/20 15 Active Continuous Blood Gluc Auto Wrecker (FreeStyle Chao 2 [place]) device Scan sensor every 8 hours 1 each 01/26/20 23 Active Alcohol Swabs (Alcohol Prep) 70 % pads USE TWICE DAILY 100 each 11 02/06/20 23 Active albuterol (Ventolin HFA) 108 (90 Base) MCG/ACT inhalerIndications :Asthma, unspecified asthma severity, unspecified whether complicated, unspecified whether persistent INHALE 2 PUFFS EVERY 4 HOURS NEEDED 18 g 2 05/20/19 24 Active aspirin (Aspirin Low Dose) 81 MG EC tablet Take 1 tablet (81 mg) by mouth at bedtime. 90 tablet 3 06/13/19 24 Active insulin pen needle (UltiCare Short Pen [place]) 31G X 8 mm miscIndications:Ty pe 2 diabetes mellitus without complication, with long-term current use of insulin ([facility]) USE ONCE DAILY FOR INSULIN 100 each 5 07/03/19 24 Active omeprazole (PriLOSEC) [address] capsuleIndications :Chronic GERD TAKE 1 CAPSULE BY MOUTH EVERY MORNING 90 capsule 3 08/08/19 24 Active hydroCHLOROthiazid e (HYDRODiuril) 25 MG tablet TAKE 1 TABLET BY MOUTH EVERY MORNING 90 tablet 3 08/08/19 24 Active Arnuity Ellipta 100 MCG/ACT inhaler INHALE 1 PUFF BY MOUTH ONCE DAILY RINSE MOUTH AFTER USING. 30 each 11 08/09/19 24 Active meclizine (Antivert) 25 MG tablet TAKE 1 TABLET BY MOUTH THREE TIMES DAILY NEEDED FOR DIZZINESS 30 tablet 1 10/08/19 24 Active baclofen (Lioresal) 10 MG tablet TAKE 1 TABLET BY MOUTH THREE TIMES DAILY IN THE MORNING, AT NOON, AND AT BEDTIME NEEDED FOR MUSCLE SPASMS 60 tablet 10/15/19 24 Active lidocaine (Lidoderm) 5 % patch APPLY 1 PATCH TOPICALLY TO SKIN, LEAVE ON FOR 12 HOURS AND OFF FOR 12 HOURS DIRECTED 30 patch 3 10/29/19 24 Active Diclofenac Sodium 1 % gel APPLY 2 GRAMS TOPICALLY FOUR TIMES DAILY NEEDED FOR PAIN 100 g 5 11/26/19 24 Active rosuvastatin (Crestor) 5 MG tabletIndications: Other hyperlipidemia TAKE 1 TABLET BY MOUTH AT BEDTIME 90 tablet 3 01/23/20 24 Active Continuous Glucose Sensor (FreeStyle Chao 2 Sensor) misc APPLY EVERY 14 DAYS DIRECTED 2 each 11 02/18/20 24 Active TRUEplus Lancets 33G misc TEST BLOOD SUGAR TWICE DAILY 100 each 11 02/18/20 24 Active insulin glargine (Lantus SoloStar) 100 UNIT/ML pen Inject 22 Units under the skin in the morning. 19.8 mL 3 02/22/20 24 025 Active amLODIPine (Norvasc) 5 MG tablet Take 1 tablet (5 mg) by mouth Once per day. 90 tablet 3 02/22/20 24 025 Active Dulaglutide (Trulicity) 1.5 MG/0.5ML solution auto-injector Inject 0.5 mL (1.5 mg) under the skin 1 (one) time per week. 2 mL 3 02/22/20 24 025 Active gabapentin (Neurontin) 300 MG capsuleIndications :Other chronic pain TAKE 1 CAPSULE BY MOUTH THREE TIMES DAILY IN THE MORNING, EVENING, AND BEDTIME 90 capsule 3 04/09/19 25 Active acetaminophen (Tylenol 8 Hour) 650 MG ER tabletIndications: Pain Take 1 tablet (650 mg) by mouth every 8 (eight) hours if needed for mild pain. Do not crush, chew, or split. 90 tablet 3 04/10/19 25 Active glipiZIDE (Glucotrol) 5 MG tabletIndications: Type 2 diabetes mellitus with other specified complication, unspecified whether longterm insulin use ([facility]) TAKE 1 TABLET BY MOUTH BEFORE BREAKFAST AND BEFORE SUPPER 180 tablet 3 04/15/19 25 Active melatonin 5 MG tabletIndications: Posttraumatic stress disorder TAKE 1 TO 2 TABLETS BY MOUTH AT BEDTIME NEEDED FOR SLEEP 60 tablet 3 05/14/19 25 Active lisinopril 40 MG tablet TAKE 1 TABLET BY MOUTH AT BEDTIME 90 tablet 1 05/14/19 25 Active Multiple Vitamin (Multivitamin) tablet TAKE 1 TABLET BY MOUTH AT BEDTIME WITH FOOD 90 tablet 3 05/16/19 25 Active Active Problems Problem Noted Date Diagnosed Date Cholelithiasis 02/22/2024 Dizziness 07/16/2023 VIVIAN III (cervical intraepith 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 07/11/2023 Assessment & Plan (07/11/2023 3:00 PM EDT): s/p LEEP cone APR 2023 -repeat HPV testing in 6 mos -f/u with [facility] as scheduled Lumbar spondylosis 07/11/2023 Healthcare maintenance 07/11/2023 Assessment & Plan (07/11/2023 3:02 PM EDT): -s/p flu vaccine JAN 2023 -s/p COVID vaccine JAN 2023 -encouraged RSV vaccine -s/p Tdap JAN 2010 -s/p Td MAY 2022 -s/p pneumovax DEC 2007 -PCV20 today -encouraged Shingrix vaccine -Hep A/B immune -mammo BIRADS 19 MAR 2022, referred for repeat -pap ASCUS/HPV+ JUN 2022, s/p colpo with VIVIAN III, s/p LEEP cone as above -colonoscopy with tubular adenoma JULY 2014->she agrees to referral for screening colonoscopy -STI/HIV screen negative MAY 2022 Forgetfulness 07/11/2023 Assessment & Plan (07/11/2023 2:56 PM EDT): With worsening sx -CT head with mild chronic ischemic changes JUN 2017 -MMSE 22/30 with RN -her MOLD SETTER agrees to reschedule f/u with neurology -will have HIM RN complete referral to [facility] agency for MOLD SETTER services Multiple thyroid nodules 06/13/2022 Assessment & Plan (07/11/2023 2:52 PM EDT): US with small benign appearing R-nodules and 4 L-nodules MAY 2017 -re-referred for thyroid US Splenic artery aneurysm 06/13/2022 Assessment & Plan (07/11/2023 2:52 PM EDT): Stable 1.3 cm aneurysm FEB 2017 -she declines f/u w/ vascular at this time Assessment & Plan (02/20/2023 9:12 PM EST): -Stable 1.3 cm aneurysm FEB 2017 -she declines f/u w/ vascular at this time Hyperlipidemia 06/13/2022 Assessment & Plan (07/11/2023 2:50 PM EDT): LDL at-goal MAY 2022 -cont crestor nightly -repeat lipids prior to next visit Chronic low back pain 06/13/2022 Assessment & Plan (07/11/2023 2:55 PM EDT): With intermittent flaring -L-spine XR with degenerative disc changes SEP 2018 -EMG/NCS with chronic L-lower lumbar radiculopathy, severe L-peroneal neuropathy, and underlying peripheral neuropathy OCT 2019 -MRI L-spine w/ multi level spondylosis w/ subluxations and severe facet arthropathy w/ nerve encroachment APR 2020 -encouraged standing doses tylenol -encouraged diclofenac gel and lidocaine patches prn -restart baclofen to help with mm spasm -cont gabapentin TID -encouraged schedule f/u w/ PM -encouraged trial acupuncture -advised contact [facility] if sx change or worsen Hepatic fibrosis 08/07/2018 Assessment & Plan (07/11/2023 2:57 PM EDT): h/o Hep C, s/p tx 2018, elastography F2-F3 JULY 2018->re-referred for abd US -consider eval w/ GI pending results Hepatitis A immune 06/14/2018 Hepatitis B immune 06/14/2018 History of hepatitis C 01/11/2015 Coronary arteriosclerosis 01/11/2015 Assessment & Plan (07/11/2023 2:50 PM EDT): s/p nml ECHO/stress 2012, asx -cont aspirin daily with NTG prn -RF modification -f/u w/ cards after ECHO Assessment & Plan (02/22/2023 7:02 AM EST): -s/p nml ECHO/stress 2012, asx -cont aspirin daily with NTG prn -Encouraged to follow up with [facility] Cards Essential hypertension 01/11/2015 Assessment & Plan (07/11/2023 2:50 PM EDT): BP controlled -cont lisinopril and HCTZ daily -Cr/GFR wnl and mild urine microalbumin MAY 2022, repeat prior to next visit -there is screening EKG in chart -optho as above Generalized anxiety disorder 01/11/2015 Assessment & Plan (07/11/2023 2:52 PM EDT): With PTSD -she denies any current SI/HI -she has the number for crisis and contracts for safety -cont current med regimen as per psychiatrist -f/u with therapist and psychiatrist at as scheduled Mild persistent asthma 01/11/2015 Assessment & Plan (07/11/2023 2:51 PM EDT): s/p PFTs with reversible obstructive airway disease FEB 2013, stable -change flovent to asmanex BID -cont albuterol as needed Assessment & Plan (02/22/2023 6:58 AM EST): ?? Well controlled with Flovent BID and albuterol PRN Opioid dependence, uncomplicated 01/11/2015 Posttraumatic stress disorder 01/11/2015 Tobacco dependence 01/11/2015 Type 2 diabetes mellitus 01/11/2015 Assessment & Plan (07/11/2023 2:49 PM EDT): Bump in A1c -inc lantus to 20 units daily -cont glipizide BID with meals -cont trulicity weekly -encouraged lifestyle changes -cont regular BS monitoring -will have eval with [facility] pharmacist rescheduled -cont aspirin, statin, and lisinopril daily -re-referred for optho eval at [facility] -foot exam next visit* Assessment & Plan (02/22/2023 7:01 AM EST): Lab Results Component Value Date HGBA1C 9.9 (H) 02/21/2023 -Improvement compared to previous value 11.4 -Cont lantus to 15 units daily -Cont glipizide 5mg BID w/ breakfast and dinner -Pt expressed interest in Trulicity, plan to discuss with PCP before initiation (hx of multiple thyroid nodules) Resolved Problems Problem Noted Date Diagnosed Date Resolved Date Rash 06/02/2022 06/13/2022 Assessment & Plan (06/02/2022 9:15 AM EDT): Poor historian Non specific rash Patient requesting refill of kenalog, it was prescribed for psoriasis? In 09/2017. Lump of left wrist 06/02/2022 Assessment & Plan (06/02/2022 5:03 PM EDT): No visible or palpable lump where the patient was pointing out. Possible ganglion cyst? She denied any pain or discomfort. I instructed the patient to come to walk in center when the lump is visible or at least palpable. Vaginal discharge 08/15/2017 06/13/2022 Encounters Date Type Department Care Team Description 06/16/2024 Telephone [facility] [address] [place] [address] Zuleima Urbina DO 05/30/2024 Population Health Risk Score [facility] ([facility]) Department [address] [place] [id number] Provider, Population Health Generic 05/20/2024 Telephone [facility] [address] [place] [address] Zuleima Urbina DO 05/16/2024 Refill [facility] [address] [place] [address] Zuleima Urbina DO 05/13/2024 Refill [facility] [address] [place] [address] Zuleima Urbina DO 05/11/2024 Refill [facility] [address] [place] [address] Zuleima Urbina DO Posttraumatic stress disorder 04/15/2024 Refill [facility] [address] [place] [address] Zuleima Urbina, Type 2 diabetes mellitus with other specified complication, unspecified whether longterm insulin use ([facility]) 04/10/2024 Refill [facility] [address] [place] [address] Zuleima Urbina, Pain 04/08/2024 Refill [facility] [address] [place] [address] Zuleima Urbina, Other chronic pain from Last 3 Months Immunizations Name Administration Dates Next Due Hep A, Adult 06/18/2014,08/07/2013 Hep B, adult 02/25/2009,09/08/2008,07/10/2008 Influenza Injectable Quadriv alant Preservative Free IIV4 MDCK 01/22/2020 Influenza injectable quadriv alent IIV4 with preservative 12/31/2017,01/11/2015 Influenza injectable quadriv alent preservative free 01/24/2023,12/22/2020,01/22/2019,01/31,01/11/2016 Influenza, IIV3, injectable 03/02/2014,1 ,12/08/2009,04/26,01/07/2009,02/07/1997,02/06/1997 Influenza, Split (incl. ned fied surface antigen) 01/31/2013,02/07/2012 Influenza, seasonal, injecta ble, preservative free 02/22/2024 Pfizer Covid-19 Vaccine 12+ 01/24/2023,,10/13/2020 Pneumococcal Conjugate PCV 20 07/11/2023 Pneumococcal Polysaccharide PPSV23 01/08/2008 TD (adult), 2 Lf tetanus tox oid, preservative free, adsorbed 02/06/1997 Td (adult), 5 Lf tetanus tox oid, preservative free, adsorbed 06/13/2022 Tdap 02/07/2010 Social History Tobacco Use Types Packs/Day Years Used Date Smoking Tobacco: Some Days Cigarettes Passive Smoke Exposure: Current Smokeless Tobacco: Never Tobacco Cessation:Ready to Q uit: Not Asked; Counseling Given: Not Answered Alcohol Use Standard Drinks/Week Comments Never 0 (1 standard drink = 0.6 oz pur e alcohol) Depression Answer Date Recorded Patient Health Questionnaire-9 Score 1 06/13/2022 Housing Stability Answer Date Recorded What is your housing situation today? I have chelsea lopes 07/04/[address] you li ve. Do you have problems with any of the following? None of the above 07/04/2023 Food Insecurity Answer Date Recorded Within the past 12 months, y ou worried that your food would run out before you got money to buy more: Never True 07/04/2023 Within the past 12 months,th e food you bought just didn't last and you didn't have enough money to get more: Never True Transportation Answer Date Recorded In the past 12 months, has l ack of transportation kept you from medical appts, meetings, work or from getting things needed for daily living? No 07/04/2023 Utilities Answer Date Recorded In the past 12 months, has t he electric, gas, oil or water company threatened to shut off services in your home? No 07/04/2023 Depression Answer Date Recorded Patient Health Questionnaire-2 Score 1 06/13/2022 Comments Unknown Sex and Gender Information Value Date Recorded Sex Assigned at Female 01/16/2022 10:14 AM EDT Legal Sex Female 10:14 AM EDT Gender Identity Female 01/16/2022 10:14 AM EDT Sexual Orientation Straight 01/16/2022 10 :14 AM EDT Last Filed Vital Signs Vital Sign Reading Time Taken Comments Blood Pressure 148/90 02/22/2024 1:14 PM EST Pulse 74 02/22/2024 11:18 AM EST Temperature 33.6 ??C (92.5 ??F) 02/22/2024 1 1:18 AM EST Respiratory Rate 18 02/22/2024 11:1 8 AM EST Oxygen Saturation 97% 07/11/2023 9:04 AM EDT Inhaled Oxygen Concentration - - Weight 62.5 kg (137 lb 12.8 oz) 024 11:18 AM EST Height 152.4 cm (5') 02/22/2024 11:18 AM EST Body Mass Index 26.91 02/22/2024 11:18 AM EST Plan of Treatment Upcoming Encounters Date Type Department Care Team (Late st Contact Info) Description 07/22/2024 9:00 AM EDT Medication Management [facility] [address] [place] [address] Jessica Mckeon, PharmD [address] [place] [address] Health Maintenance Due Date Last Done Comments CT Colonography 1961 FIT DNA/Cologuard 1961 FIT 1961 FOBT 1960 Sigmoidoscopy 1961 Diabetes: Foot Exam 1971 Zoster Vaccines (1 of 2) 2011 Colonoscopy 07/31/2019 07/30/2014 Colorectal Cancer Screening 07/31/2019 RSV Patients and Patients Aged 60 years or older (1 - Risk 60-74 years 1-dose series) 2021 Depression Screening 06/14/2023 06/13/2022, 06/14/19 23 Diabetes: Urine Protein Screening 06/14/2023 06/13/2022, 11/13/2019 COVID-19 Vaccine ( season) 2023 01/24/2023, 01/25/2022, 11/18/2020, Additional history exists Diabetes: Hemoglobin A1C 05/22/2024 024, 07/11/2023, 02/21/2023, Additional history exists SDOH Screening 07/03/2024 07/04/2023 Lipid Panel 08/28/2024 08/29/2023, 06/13/2022 Cervical Cancer Screening 01/06/2025 HPV/Cotest 01/06/2025 01/07/2024, 06/18, 09/04/2018, Additional history exists Pap Smear 01/06/2025 01/07/2024, 2 08/2022, 09/04/2018 Eye Exam 01/16/2025 01/17/2024, 12/19, 01/17/2024, Additional history exists Alcohol/Substance Use Screening 02/21/2025 02/22/2024 Tobacco Screening 02/21/2025 02/22/2024 Mammogram 08/28/2025 08/29/2023, 03/21, 04/17/2022, Additional history exists DTaP/Tdap/Td Vaccines (3 - Td or Tdap) 06/13/2032 06/13/2022, 02/07/2010, 02/06/1997 Hepatitis B Vaccines Completed 02/25/2009, 09/08/2008, 07/10/2008 Hepatitis A Vaccines Completed 06/18/2014, 08/08/19 14 Pneumococcal Vaccine: 50+ Years Completed 07/11/2023, 01/08/2008 HIV Screening Completed 08/29/2023, 05/18, 11/13/2019 Influenza Vaccine Completed 02/22/2024, , 12/22/2020, Additional history exists HIB Vaccines Aged Out No longer eligi ble based on patient's age to complete this topic HPV Vaccines Aged Out No longer eligi ble based on patient's age to complete this topic IPV Vaccines Aged Out No longer eligi ble based on patient's age to complete this topic Meningococcal Vaccine Aged Out No kassandra marlon eligible based on patient's age to complete this topic RSV under 20 months Aged Out No longe r eligible based on patient's age to complete this topic Rotavirus Vaccines Aged Out No longer eligible based on patient's age to complete this topic Procedures Procedure Name Priority Date/Time Associated Diagnosis Comments POCT GLYCATED HEMOGLOBIN, TOTAL Routine 02/22/2024 11:35 AM EST Type 2 diabetes mellitus without complication, with long-term current use of insulin (CMS/HCC) HM PAP/HPV Routine 01/07/2024 BI MAMMOGRAM SCREENING TOMOSYNTHESIS BILATERAL Routine 08/29/2023 9:28 AM EDT HIV 1/2 ANTIGEN/ANTIBODY, FOURTH GENERATION W/RFL Routine 08/29/2023 8:55 AM EDT Type 2 diabetes mellitus without complication, with long-term current use of insulin (CMS/HCC) Essential hypertension Other hyperlipidemia Generalized anxiety disorder Splenic artery aneurysm (CMS/HCC) Multiple thyroid nodules Chronic bilateral low back pain with bilateral sciatica Forgetfulness Hepatic fibrosis Tobacco dependence Healthcare maintenance Dizziness LIPID PANEL, STANDARD Routine 08/29/2023 8:55 AM EDT Type 2 diabetes mellitus without complication, with long-term current use of insulin (CMS/HCC) Essential hypertension Other hyperlipidemia Generalized anxiety disorder Splenic artery aneurysm (CMS/HCC) Multiple thyroid nodules Chronic bilateral low back pain with bilateral sciatica Forgetfulness Hepatic fibrosis Tobacco dependence Healthcare maintenance Dizziness ALBUMIN, RANDOM URINE W/O CREATININE Routine 06/13/2022 11:09 AM EDT Type 2 diabetes mellitus without complication, without long-term current use of insulin (CMS/HCC) COLONOSCOPY Routine 07/30/2014 10:43 AM EDT from Last 3 Months or Most Recently Relevant to Health Maintenance Results * (ABNORMAL) POCT HGB A1C (02/22/2024 11:35 AM EST) Hemoglobin A1C 10.1(A) 4.0 - 6.0 % QC Media Lot # [id number] Lot# Expiration Date [id number] Blood 02/22/2024 11:3 5 AM EST Zuleima Urbina DO POINT OF CARE TEST ENTER/NENO T ORDERABLES Final Result * PAP/HPV (01/07/2024) Pap Smear 1. NILM 1. NILM HPV Not Detected Undetected, Indeterminat e, Quantitative , Not Detected Historical Provider MD HEALTH MAINTENANCE Final Result * BI Mammogram Screening Tomosynthesis Bilateral (08/29/2023 9:28 AM EDT) Anatomical Region Laterality Modality Breast Bilateral Mammography 08/29/2023 9:28 AM EDT Narrative 09/28/2023 9:08 AM EDT ? [facility] ? [address] ?[place] [address] ? Mammography Report ? Signed ? Patient: Campbell,Suzanne S ?MR#: [id number] ? : 1960 ?Acct:[id number] ? Age/Sex: 63 / F ?ADM Date: 08/29/23 ? Loc: HO.MAMMO ? Attending Dr: Zuleima Urbian DO ? Ordering Physician: Zuleima Urbina DO ?Results: 1N ?? egative ? Date of Service: 08/29/23 ?Follow Up: 1 Year From Orig ?? inal Mammogram ? Procedure(s): MM tomosynthesis screening BI ?? Accession Number(s): [id number] ? cc: Zuleima Urbina DO ? EXAMINATION: ?? MM SCREENING DIGITAL BREAST TOMOSYNTHESIS, BILATERAL ? CLINICAL INFORMATION: ? Screening. Asymptomatic. ? COMPARISON: ?? Mammography: This study is compared with prior exams dating back to ?? 2016. ? TECHNIQUE: ?? Digital breast tomosynthesis is performed in both the craniocaudal and ?? mediolateral oblique views along with computer-aided detection (CAD). ?? Synthesized 2D images are generated from the tomosynthesis. ? FINDINGS: ?? The breasts are almost entirely fatty (ACR BI-RADS breast composition ?? Category a). ? There are no significant masses, abnormal calcifications, or other ?? abnormalities. ? MM/MM tomosynthesis screening BI ?? IMPRESSION: ?? No mammographic evidence of malignancy. ? ASSESSMENT: ? BI-RADS BI-RADS 1 - Negative ? RECOMMENDATION: ?? Routine annual mammography screening. ? 1 year F/U ? This examination should not preclude the clinical evaluation of a ?? suspicious palpable abnormality. ? This patient's information was entered into a reminder system with a ?? target due date for their next mammogram. ? Dictated By: ?Wendy Hayden MD ? Signed By: ?<Electronically signed by Wendy Hayden MD in OV> ? 09/28/23903 ? DD/ 0928 ? TD/TT: ? Channel Marketing Specialist: ? Procedure Note Donotuseinterpreter, Image - [facility]28/2023 [facility] [address] [place], [place] [address] Mammography Report Signed Patient: Suzanne Campbell SMR#: [id number] : 1Acct:[id number] Age/Sex: 63 / FADM Date: 08/29/23 Loc: HO.MAMMO Attending Dr: Zuleima Urbina DO Ordering Physician: Zuleima Urbinaults: 1N egative Date of Service: 08/29/23Follow Up: 1 Year From Orig inal Mammogram Procedure(s): MM tomosynthesis screening BI Accession Number(s): [id number] cc: Zuleima Urbina DO EXAMINATION: MM SCREENING DIGITAL BREAST TOMOSYNTHESIS, BILATERAL CLINICAL INFORMATION: Screening. Asymptomatic. COMPARISON: Mammography: This study is compared with prior exams dating back to 2016. TECHNIQUE: Digital breast tomosynthesis is performed in both the craniocaudal and mediolateral oblique views along with computer-aided detection (CAD). Synthesized 2D images are generated from the tomosynthesis. FINDINGS: The breasts are almost entirely fatty (ACR BI-RADS breast composition Category a). There are no significant masses, abnormal calcifications, or other abnormalities. MM/MM tomosynthesis screening BI IMPRESSION: No mammographic evidence of malignancy. ASSESSMENT: BI-RADS BI-RADS 1 - Negative RECOMMENDATION: Routine annual mammography screening. 1 year F/U This examination should not preclude the clinical evaluation of a suspicious palpable abnormality. This patient's information was entered into a reminder system with a target due date for their next mammogram. Dictated By: Wendy Hayden MD Signed By: <Electronically signed by Wendy Hayden MD in OV> 09/28/23903 DD/ 7 TD/TT: Channel Marketing Specialist: Zuleima Urbina DO IMG BI PROCEDURES Final Resu lt * HIV-1/2 Antigen and Antibodies, Fourth Generation, with Reflexes (08/29/2023 8:55 AM EDT) HIV AB/AG Nonreactive Nonreactive [facility] Comment:HIV-1 p24 Ag and/or HIV-1/HIV-2 Ab not detected.A test result that is nonreactive does not exclude thepossibility of exposure to or infection with HIV-1 and/orHIV-2. Nonreactive results in this assay for individualswith prior exposure to HIV-1 and/or HIV-2 may be due toantigen and antibody levels that are below the limit ofdetection of this assay.The [employer] HIV Ag/Ab Combo assay result andsupplemental assay results should be interpreted inconjunction with the patient's clinical presentation,history and other laboratory results. If the results areinconsistent with clinical evidence, additional testing issuggested to confirm the result. Blood Venous blood specimen / Unknown 08/29/2023 8:55 AM EDT 08/29/2023 11:15 AM EDT us Zuleima Urbina DO LAB BLOOD ORDERABLES Final R esult [facility] [facility] [address] [place] [address] [phone] * (ABNORMAL) Lipid Panel, Standard (08/29/2023 8:55 AM EDT) Triglycerides 250(H) <150 mg/dL [facility] Comment:Desirable Triglyceri de: less than 150 mg/dLBorderline High Triglyceride 150-199 mg/dLHigh Triglyceride: 200-499 mg/dLVery High Triglyceride: greater than or equal to 5OO mg/dL Cholesterol 141 <200 mg/dL [facility] Comment:Desirable Cholestero l: less than 200 mg/dLBorderline High Cholesterol: 200-239 mg/dLHigh Cholesterol: greater than 239 mg/dL LDL Cholesterol Calculated 59 <100 mg/dL [facility] Comment:Desirable LDL: less than 100 mg/dLNear Optimal/Above Optimal LDL: 110- 129 mg/dLBorderline High LDL: 130-159 mg/dLHigh LDL: 160-189 mg/dLVery High LDL: greater than or equal to 190 mg/dL HDL Cholesterol 32(L) >40 mg/dL [facility] Comment:Desirable HDL: great er than 40 mg/dL Note: This HDL assay may give artificially low results in patients with liver disease. Blood Venous blood specimen / Unknown 08/29/2023 8:55 AM EDT 08/29/2023 11:15 AM EDT Zuleima Urbina DO LAB BLOOD ORDERABLES Final R esult [facility] [address], [place] [phone] * Albumin, Random Urine W/O Creatinine (06/13/2022 11:09 AM EDT) Albumin, Urine 3.4 See Note: mg/dL [facility] [employer] [place] [employer] Comment: Reference Range: Reference Range Not established PRITI [facility] [place] [employer] Comment: The ADA defines abnormalities in albumin excretion as follows: Albuminuria Category ? Result (mcg/mg creatinine) Normal to Mildly increased ?<30 Moderately increased ?30-299 Severely increased ?> OR = 300 The ADA recommends that at least two of three specimens collected within a 3-6 month period be abnormal before considering a patient to be within a diagnostic category. Urine Urine specimen obtained by clean catch procedure / Unknown 06/13/2022 11:09 AM EDT 06/13/2022 11:09 AM EDT Narrative [facility] - 06/20/2022 9:23 PM EDT FASTING:NO FASTING: NO us Zuleima Urbina DO LAB URINE ORDERABLES Final R esult [facility] [address], [place] [address] [employer] [place] [facility] [address] [place] [address] * Hm Colonoscopy (07/30/2014 10:43 AM EDT) Historical Provider MD HEALTH MAINTENANCE Final Result from Last 3 Months or Most Recently Relevant to Health Maintenance Insurance [facility] C3 Care Teams Senior Animal Trainer Relationship Specialty Start Date End Date Zuleima Urbina DO [address] [place] [address] PCP - General Family Medicine 11/25/20
--- OUTSIDE RECORDS SUMMARY | 2024-06-18 13:18 | XMS_ITS | Encounter Summary ---
Author Organization [employer] Address [address] [facility] 7t [place] [address] Care Team Providers Care Claim Processor Name Role Phone Zuleima Urbina DO Primary Care Provider +1 [phone] Encounter Details Date Type Department Care Team ([facility] st Contact Info) Description 07/12/2023 Telephone [facility] [address] [place] [address] Zuleima Urbina DO [address] [place] [address] Social History Tobacco Use Types Packs/Day Years Used Date Smoking Tobacco: Some Days Cigarettes Passive Smoke Exposure: Current Smokeless Tobacco: Never Alcohol Use Standard Drinks/Week [...] t he electric, gas, oil or water [employer] threatened to shut off services in your home? No 07/04/2023 Depression Answer Date Recorded Patient Health Questionnaire-2 Score 1 06/13/2022 Comments Unknown Sex and Gender Information Value Date Recorded Sex Assigned at Female 01/16/2022 10:14 AM EDT Legal Sex Female 10:14 AM EDT Gender Identity Female 01/16/2022 10:14 AM EDT Sexual Orientation Straight 01/16/2022 10 :14 AM EDT documented as of this encounter Plan of Treatment Upcoming Encounters Date Type Department Care Team (Late st Contact Info) Description 07/22/2024 9:00 AM EDT Medication Management [facility] [address] [place] [address] Jessica Mckeon, JustinD [address] [place] [address] documented as of this encounter Visit Diagnoses Not on filedocumented in this encounter Additional Health Concerns Assessment Noted Time PHQ-9 Depression Total Score: 1 06/14/19 23 10:18 AM EDT documented as of this encounter Care Teams Claim Processor Relationship Specialty Start Date End Date Zuleima Urbina DO [address] [place] [address] PCP - General Family Medicine 11/25/20 documented as of this encounter
--- OUTSIDE RECORDS SUMMARY | 2024-06-18 13:18 | XMS_ITS | Encounter Summary ---
Author Organization [employer] Address 75 [facility] 7t [place] [address] Care Team Providers Care Joiner Helper Name Role Phone Zuleima Urbina DO Primary Care Provider [phone] [phone] Encounter Details Date Type Department Care Team ([facility] st Contact Info) Description 03/13/2023 Orders Only [facility] MED[facility]INE [address] [place] [address] Zuleima Urbina DO [address] [place] [address] Social History Tobacco Use Types Packs/Day Years [...] Medication Management [facility] MED[facility]INE [address] [place], [place] [phone] Jessica Mckeon, PharmD [address] [place], [place] [phone] documented as of this encounter Procedures Procedure Name Priority Date/Time Associated Diagnosis Comments GROSS AND MICROSCOPIC LEVEL 5 Routine 04/27/2023 11:33 AM EST GLUCOSE, WHOLE BLOOD Routine 04/27/2023 9:58 AM EST documented in this encounter Results * Gross and Microscopic Level 5 (04/27/2023 11:33 AM EST) 04/27/2023 11:3 3 AM EST 04/27/2023 12:18 PM EST [facility] - 05/01/2023 9:23 AM EST ----- ------- Name: Suzanne Campbell ? Age/Sex: 63/F ? : 1960 Unit#: [id number] ?? Attend Dr: Bernardo Gaming MD ?Re04/27/23 ?Status: DEP SDC ? Location: [facility] ?Disch: ? ----- ------- SPEC : [id number] ?RECD: 04/27/23-1218 ? STATUS: ??SOUT ? REQ NUM: [id number] ? KIN: 04/27/23-1133 ? SUBM DR: Bernardo Gaming MD ? ENTERED: ??04/27/23-9 ?SP TYPE: Surgical ? OTHR DR: Kaylan CalderonP ? ORDERED: ??Gross Micro L5/3 ? Diagnosis ?? A. ??Cervix, cone excision: ??Inflamed squamous and endocervical mucosa with reactive ?? changes; changes consistent with prior procedure. ? B. ??Cervix, top hat, excision: ??Inflamed fibromuscular stroma; changes consistent with ?? prior procedure. ? C. ??Endocervix, post cone curettage: ??Small fragments of benign squamous and endocervical ?? epithelium; changes consistent with prior procedure. 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 ??Microscopic sections reviewed. ? Material Received ?? A. Cervical cone ?? B. Top hat excision ?? C. Post cone ECC ? Gross Description Received in 3 parts. Part A: ??Received in formalin labeled ?cervical cone? is a 3.0 x 0.5- 1.2 x 0.3-0.8 cm previously incised and cauterized portion of cervical LEEP biopsy specimen. ??No sutures are present to orient the specimen. ??A partial focal squamocolumnar junction is identified with a hollins-white ectocervical mucosa and predominantly velvety hollins-red endocervical mucosa. ??The margins are inked and the specimen is sectioned to reveal dense, rubbery, hollins- white fibrous cut surfaces. ??The specimen is entirely submitted in cassettes A1-A3. Part B: ??Received in formalin labeled ?top hat excision? is a 2.2 x 0.4-0.6 x 0.2-0.35 cm concave and convex cauterized portion of cervical LEEP biopsy specimen. ??The convex margin is marked with blue ink. ??A mucosa is not identified. ??No sutures are present to orient the specimen. ??The specimen is serially sectioned to reveal dense, slightly gritty, rubbery hollins- white fibrous cut surfaces. ??The specimen is entirely submitted in cassettes B1 and B2. Part C: ??Received in formalin labeled ?post cone ECC? is a 0.6 x 0.5 x 0.1 cm aggregate of predominantly mucus and blood and minute shards of pink-maroon tissue, submitted in toto in ? CONTINUED ON NEXT PAGE ----- ------- Name: Suzanne Campbell ? Age/Sex: 63/F ? : 1960 Unit#: [id number] ?? Attend Dr: Bernardo Gaming MD ?Re04/27/23 ?Status: DEP SDC ? Location: [facility] ?Disch: ? ----- ------- SPEC : [id number] ?RECD: 04/27/23 ? STATUS: ??SOUT ? REQ NUM: [id number] ? KIN: 04/27/23-1132 ? SUBM DR: Bernardo Gaming MD ? ENTERED: ??04/27/23-1228 ?SP TYPE: Surgical ? OTHR DR: Kaylan CalderonP ? ORDERED: ??Gross Micro L5/3 ? Gross Description ?(Continued) a cassette labeled CStanley STEELE Copies To: ?? Kaylan Calderon CASH RECONCILIATION SPECIALIST ?? [address] [facility] ?? [place] [address] ?? [phone] ?? Bernardo Gaming MD ?? [address] [facility] [address] [facility] ?? [place] [address] ?? [phone] ----- ------- Signed (signature on file) Shoaib Hunter MD 05/01/23922 ? ----- ------- ? END OF REPORT ? us Generic External Data Provider LAB BLOOD ORDERAB LES Final Result [facility] [address] [place] [address] [phone] * (ABNORMAL) Glucose, Whole Blood (04/27/2023 9:58 AM EST) Glucose, Whole Blood 247(H) 60 - 115 mg/dL [facility] Comment:METER #: [id number] 7 04/27/2023 9:58 AM EST 04/27/2023 10:03 AM EST us Generic External Data Provider LAB BLOOD ORDERAB LES Final Result [facility] [address] [place] [address] [phone] documented in this encounter Visit Diagnoses Not on filedocumented in this encounter Additional Health Concerns Assessment Noted Time PHQ-9 Depression Total Score: 1 06/14/19 23 10:18 AM EDT documented as of this encounter Care Teams Joiner Helper Relationship Specialty Start Date End Date Zuleima Urbina DO [address] [place] [address] PCP - General Family Medicine 11/25/20 documented as of this encounter
--- OUTSIDE RECORDS SUMMARY | 2024-06-18 13:18 | XMS_ITS | Encounter Summary ---
Author Organization [employer] Address [address] [facility] 7[address] [place] [address] Care Team Providers Care Criminalist Technician Name Role Phone Zuleima Urbina DO Primary Care Provider [phone] Reason for Visit * Reason Onset Date Comments Med Refill 06/26/2022 Encounter Details Date Type Department Care Team (Late st Contact Info) Description 06/26/[address] [facility] MED[facility]INE [address] [place] [address] Zuleima Urbina DO [address] [place] [address] Med Refill Social History Tobacco Use Types Packs/Day Years [...] suspected to have Coronavirus/COVID-19? No / Unsure 06/13/2022 9:57 AM EDT documented as of this encounter Miscellaneous Notes * Telephone Encounter - Zuleima Ellis LPN - 06/26/2022 10:26 AM EDT Per madelinepat medication is prescribed by Steffi Howard. * Telephone Encounter - Yun Dewitt - 06/26/2022 10:15 AM EDT Tc from pt requesting med refill on zolpidem (Ambien) 10 MG tablet Please sent to [facility] - [place], [place] - [address] [place] [address] documented in this encounter Plan of Treatment Upcoming Encounters Date Type Department Care Team ([facility] st Contact Info) Description 07/22/2024 9:00 AM EDT Medication Management [facility] MEDICINE [address] [place] [address] Jessica Mckeon, PharmD [address] [place] [address] documented as of this encounter Visit Diagnoses Not on filedocumented in this encounter Additional Health Concerns Assessment Noted Time PHQ-9 Depression Total Score: 1 06/14/19 23 10:18 AM EDT documented as of this encounter Care Teams Criminalist Technician Relationship Specialty Start Date End Date Zuleima Urbina DO [address] [place] [address] PCP - General Family Medicine 11/25/20 documented as of this encounter
--- OUTSIDE RECORDS SUMMARY | 2024-06-18 13:18 | XMS_ITS | Encounter Summary ---
Author Organization [employer] Address 75 [facility] 7t [place] [address] Care Team Providers Care Housing Management Representative Name Role Phone Zuleima Urbina DO Primary Care Provider [phone] Reason for Visit * Reason Comments Med Refill Encounter Details Date Type Department Care Team (Late st Contact Info) Description 10/24/2023 Refill [facility] [address] [place] [address] Zuleima Urbina DO [address] [place] [address] Other chronic pain Social History Tobacco Use Types Packs/Day Years [...] Description 07/22/2024 9:00 AM EDT Medication Management [facility] [address] [place], [place] [phone] Jessica Mckeon, PharmD [address] [place] [address] documented as of this encounter Visit Diagnoses Diagnosis Other chronic pain documented in this encounter Additional Health Concerns Assessment Noted Time PHQ-9 Depression Total Score: 1 06/14/19 23 10:18 AM EDT documented as of this encounter Care Teams Housing Management Representative Relationship Specialty Start Date End Date Zuleima Urbina DO [address] [place], [place] [phone] PCP - General Family Medicine 11/25/20 documented as of this encounter
--- OUTSIDE RECORDS SUMMARY | 2024-06-18 13:18 | XMS_ITS | Encounter Summary ---
Author Organization [employer] Address [address] [facility] 7t [place] [address] Care Team Providers Care Fan Blade Aligner Name Role Phone Zuleima Urbina DO Primary Care Provider [phone] Reason for Visit * Reason Comments Med Refill Encounter Details Date Type Department Care Team ([facility] st Contact Info) Description 10/13/2023 Refill [facility] [address] [place] [address] Zuleima Urbina DO [address] [place] [address] Asthma, unspecified asthma severity, unspecified whether complicated, unspecified whether persistent Social History Tobacco Use Types Packs/Day Years [...] Description 07/22/2024 9:00 AM EDT Medication Management [facility] [address] [place] [address] Jessica Mckeon, JustinD [address] [place] [address] documented as of this encounter Visit Diagnoses Diagnosis Asthma, unspecified asthma severity, unspecified whether complicated, unspecified whether persistent documented in this encounter Additional Health Concerns Assessment Noted Time PHQ-9 Depression Total Score: 1 06/14/19 23 10:18 AM EDT documented as of this encounter Care Teams Fan Blade Aligner Relationship Specialty Start Date End Date Zuleima Urbina DO [address] [place] [address] PCP - General Family Medicine 11/25/20 documented as of this encounter
--- OUTSIDE RECORDS SUMMARY | 2024-06-18 13:18 | XMS_ITS | Encounter Summary ---
Author Organization [employer] Address 75 [facility] 7t [place] [address] Care Team Providers Care Metalizing Supervisor Name Role Phone Zuleima Urbina DO Primary Care Provider [phone] Reason for Visit * Reason Comments Med Refill Encounter Details Date Type Department Care Team (Late st Contact Info) Description 10/26/2023 Refill [facility] [address] [place] [address] Zuleima Urbina DO [address] [place] [address] Other chronic pain Social History Tobacco Use [...] Description 07/22/2024 9:00 AM EDT Medication Management [facility] MED[facility] [address] [place], [place] [phone] Jessica Mckeon, PharmD [address] [place] [address] documented as of this encounter Visit Diagnoses Diagnosis Other chronic pain documented in this encounter Additional Health Concerns Assessment Noted Time PHQ-9 Depression Total Score: 1 06/14/19 23 10:18 AM EDT documented as of this encounter Care Teams Metalizing Supervisor Relationship Specialty Start Date End Date Zuleima Urbina DO [address] [place], [place] [phone] PCP - General Family Medicine 11/25/20 documented as of this encounter
--- OUTSIDE RECORDS SUMMARY | 2024-06-18 13:18 | XMS_ITS | Encounter Summary ---
Author Organization [employer] Address 75 [facility] 7t [place] [address] Care Team Providers Care Warp Scouring Vat Tender Name Role Phone Zuleima Urbina DO Primary Care Provider [phone] Reason for Visit * Reason Comments Med Refill Encounter Details Date Type Department Care Team ([facility] st Contact Info) Description 03/15/2024 Refill [facility] MED[facility]INE [address] [place] [address] Zuleima Urbina DO [address] [place], [place] [phone] Pain Social History Tobacco Use Types Packs/Day Years [...] Description 07/22/2024 9:00 AM EDT Medication Management [facility] [address] [place], [place] [phone] Jessica Mckeon, PharmD [address] [place] [address] documented as of this encounter Visit Diagnoses Diagnosis Pain Generalized pain documented in this encounter Additional Health Concerns Assessment Noted Time PHQ-9 Depression Total Score: 1 06/14/19 23 10:18 AM EDT documented as of this encounter Care Teams Warp Scouring Vat Tender Relationship Specialty Start Date End Date Zuleima Urbina DO [address] [place], [place] [phone] PCP - General Family Medicine 11/25/20 documented as of this encounter
--- OUTSIDE RECORDS SUMMARY | 2024-06-18 13:18 | XMS_ITS | Encounter Summary ---
Author Organization [employer] Address [address] [facility] 7t [place] [address] Care Team Providers Care Technical Services Specialist Name Role Phone Zuleima Urbina DO Primary Care Provider [phone] Encounter Details Date Type Department Care Team ([facility] st Contact Info) Description 06/16/2024 Telephone [facility] MEDICINE [address] [place] [address] Zuleima Urbina DO [address] [place] [address] Social History Tobacco Use Types Packs/Day Years [...] t he electric, gas, oil or water [employer] threatened to shut off services in your [...] encounter Miscellaneous Notes * Telephone Encounter - Ana Johnson - 06/16/2024 1:48 PM EDT Pharmacy [facility] attempted outreach call on 06/16/24 for CDTM - Diabetes appointment; however, unable to reach patient. LVM for patient to contact Ana Johnson at [phone]. documented in this encounter Plan of Treatment Upcoming Encounters Date Type Department Care Team (Late st Contact Info) Description 07/22/2024 9:00 AM EDT Medication Management [facility] MEDICINE [address] [place] [address] Jessica Mckeon, PharmD [address] [place] [address] documented as of this encounter Visit Diagnoses Not on filedocumented in this encounter Additional Health Concerns Assessment Noted Time PHQ-9 Depression Total Score: 1 06/14/19 23 10:18 AM EDT documented as of this encounter Care Teams Technical Services Specialist Relationship Specialty Start Date End Date Zuleima Urbina DO [address] [place] [address] PCP - General Family Medicine 11/25/20 documented as of this encounter
--- OUTSIDE RECORDS SUMMARY | 2024-06-18 13:18 | XMS_ITS | Encounter Summary ---
Author Organization [employer] Address [address] [facility] 7t [place] [address] Care Team Providers Care School Bus Attendant Name Role Phone Zuleima Urbina DO Primary Care Provider + [phone] Encounter Details Date Type Department Care Team (Late st Contact Info) Description 06/29/2023 Orders Only [facility] MEDICINE [address] [place] [address] Provider, MD Rox Social History Tobacco Use Types Packs/Day Years [...] Description 07/22/2024 9:00 AM EDT Medication Management [facility] [address] [place] [address] Jessica Mckeon PharmD [address] [place] [address] documented as of this encounter Procedures Procedure Name Priority Date/Time Associated Diagnosis Comments HM COLONOSCOPY Routine 07/30/2014 10:43 AM EDT documented in this encounter Results * Hm Colonoscopy (07/30/2014 10:43 AM EDT) us Historical Provider HEALTH MAINTENANCE Final Result documented in this encounter Visit Diagnoses Not on filedocumented in this encounter Additional Health Concerns Assessment Noted Time PHQ-9 Depression Total Score: 1 06/14/19 23 10:18 AM EDT documented as of this encounter Care Teams School Bus Attendant Relationship Specialty Start Date End Date Zuleima Urbina DO [address] [place] [address] PCP - General Family Medicine 11/25/20 documented as of this encounter
[2024-06-18 13:42] LABS: Estimated Average Glucose 237 mg/dL; Hemoglobin A1C 323.7142 umol/L; Hemoglobin A1c % 9.9 % (<6.0)
[2024-06-18 13:57] LABS: Free T4 (Free Thyroxine) 0.97 ng/dL (0.71-1.85); Thyroid Stimulating Hormone 1.24 uIU/mL (0.32-4.0); Vitamin D 25-OH Total 21.4 ng/mL (>30)
[2024-06-18 14:01] LABS: Alanine Aminotransferase 92 U/L (0-31); Albumin Level 3.8 g/dL (3.5-5.0); Alkaline Phosphatase 199 U/L (39-117); Anion Gap 13 (12-20); Aspartate Amino Transferase 23 U/L (5-31); Bilirubin Direct 0.2 mg/dL (0.0-0.5); Bilirubin Total 0.3 mg/dL (0.0-1.0); Blood Urea Nitrogen 17 mg/dL (9-16); Calcium 9.4 mg/dL (8.4-10.2); Carbon Dioxide 30 mmol/L (22-29); Chloride 98 mmol/L (96-108); Cholesterol 169 mg/dL (<200); Estimated Glomerular Filt Rate > 60; Glucose Random 382 mg/dL (60-115); HDL Cholesterol 32 mg/dL (>40); LDL Cholesterol Calculated 104 mg/dL (<100); Potassium 3.9 mmol/L (3.3-5.1); Sodium 137 mmol/L (135-145); Total Protein 8.5 g/dL (6.5-8.0); Triglycerides 166 mg/dL (<150)
[2024-06-18 14:47] LABS: Creatinine Urine 60.04 mg/dL; Microalbum/Creatinine Ratio Ur 223.1 ug/mg cr (<30)
[2024-06-18 16:33] LABS: CT PCR NOT DETECTED (Not Detect.); NG PCR NOT DETECTED (Not Detect.)
[2024-06-18 16:44] LABS: Hematocrit 41.5 % (37.0-47.0); Hemoglobin 14.3 g/dl (12.0-16.0); Mean Corpuscular HGB Conc 34.5 g/dl (31.0-35.0); Mean Corpuscular Hemoglobin 30.2 pg (27.0-33.0); Mean Corpuscular Volume 87.7 fL (80.0-98.0); Mean Platelet Volume 12.1 fL (9.4-12.3); Platelet Count 263 X10*3/uL (160-400); Red Blood Count 4.73 X10*6/uL (4.20-5.50); Red Cell Distribution Width 12.5 % (11.0-16.0); White Blood Count 12.4 X10*3/uL (4.8-10.8)
[2024-06-18 19:58] LABS: Atypical Lymphs Percent Manual 8 % (0-6); Band Neutrophils Percent 1 % (3-5); Basophils Abs Manual 0.1 X10*3/uL (0.0-0.2); Basophils Percent Manual 1 % (0-2); Eosinophils Absolute Manual 0.2 X10*3/uL (0.0-0.4); Eosinophils Percent Manual 2 % (0-4); Lymphocytes Absolute Manual 2.9 X10*3/uL (1.2-4.9); Lymphocytes Percent Manual 23 % (20-40); Monocytes Percent Manual 8 % (2-11); Neutrophils Absolute Manual 7.2 X10*3/uL (2.0-8.3); Neutrophils Percent Manual 57 % (45-73)
[2024-06-18 19:59] LABS: RBC Morphology NORMAL
[2024-06-18 20:00] LABS: Platelet Estimate NORMAL (NORMAL); Platelet Morphology Comment NORMAL
[2024-06-18 20:01] LABS: Hypersegmented Neutrophils PRESENT
[2024-06-19 08:59] LABS: HIV AB/AG Nonreactive (Nonreactive); HIV Num 1 0.08 S/CO (0.00-0.99); ~HepC Num1 10.79 S/CO (0.00-0.79); ~Hepatitis C Antibody Reactive (Nonreactive)
[2024-06-19 12:18] LABS: Alpha Fetoprotein 4.4 ng/mL
[2024-06-19 12:48] LABS: RPR Rapid Plasma Reagin NON-REACTIVE (NON-REACTIVE)
[2024-06-24 20:38] LABS: HCV Log PCR <1.18 NOT DETECTED Log IU/mL (NOT DETECTED); HepC Viral Load <15 NOT DETECTED IU/mL (NOT DETECTED)
== END 2024-06-18 11:01 | disposition home or self-care (01) ==
LOC: HO.HHCL 11:00
PROVIDERS: Visit Provider Family Medicine
DX: Z00.00 Encounter for general adult medical examination without abnormal findings (principal); E11.9 Type 2 diabetes mellitus without complications; Z79.4 Long term (current) use of insulin; I10 Essential (primary) hypertension; E78.49 Other hyperlipidemia; F41.1 Generalized anxiety disorder; I72.8 Aneurysm of other specified arteries; E04.2 Nontoxic multinodular goiter; M54.42 Lumbago with sciatica, left side; M54.41 Lumbago with sciatica, right side; G89.29 Other chronic pain; R68.89 Other general symptoms and signs; K74.00 Hepatic fibrosis, unspecified; F17.200 Nicotine dependence, unspecified, uncomplicated; R42 Dizziness and giddiness; D72.828 Other elevated white blood cell count
CPT/HCPCS: 36415; 80048; 80061; 80076; 82043; 82105; 82306; 82570; 83036; 84439; 84443; 85007; 85027; 86592; 86803; 87389; 87491; 87522; 87591